=== PATIENT | female | born 1965 | race Caucasian/White ===

== ENCOUNTER 2017-06-09 17:53 | Inpatient (IN) | payer MEDICAID ==
--- NOTE | 2017-06-09 18:04 | EDPHY ---
H & P HPI/ROS: CHIEF COMPLAINT: Generalized weakness, confusion Limitations: confusion, unable to provide much clinical hx HISTORY OF PRESENT ILLNESS: 51-year-old female with schizophrenia and DM presents with confusion and weakness. She recently to moved in to [facility] on 06/02/2017 and was sent to the ED for suspected lithium toxicity. She had a lithium level performed on 06/01/2017 that was reportedly elevated. She was supposed to be on a decreased dose of lithium of 300 mg twice a day since 2016, but has continued to take 300 mg three times daily. Blain level today 1.9. The patient states she feels "pretty good" today. Has had a recent cough and shortness of breath. She has not eaten today because of lack of appetite. The patient's aunt at bedside states the patient's condition has been deteriorating over the past two months, and she has needed a walker to ambulate and has been sleeping much of the time. Recently, she has been unable to walk at all. She states the patient has lost about 25 pounds during the past 2 months. She also states the patient's confusion today is abnormal for her. Pt denies fever, headache, chest pain, or abdominal pain. HPI difficult to obtain due to patient's confusion. REVIEW OF SYSTEMS: A 10 point review of systems attempted, difficult to obtain due to patient's confusion. Past Medical/Surgical History: 1. Schizoaffective disorder 2. Bipolar disorder 3. Cognitive communication deficit 4. Diabetes Mellitus type II Social History: Aunt (patient's power of trial attorney) at bedside. Lives at [facility]. Retired. Physical Exam: General Appearance: Drowsy, confused Eyes: Pupils equal and round, no conjunctival pallor or injection ENT, Mouth: Mucous membranes dry Neck: Normal inspection Respiratory: Scattered rhonchi throughout Cardiovascular: Regular rate and rhythm Gastrointestinal: Abdomen is soft and non-tender Neurological: Drowsy, oriented to self only, CONNELLY, gait not assessed Skin: Warm and dry Extremities: Nontender, no pedal edema Psychiatric: flat affect Constitutional: Initial Vital Signs Temperature (C) 36.9 C 06/09/17 18:05 Heart Rate 92 06/09/17 18:05 Respiratory Rate 18 06/09/17 18:05 Blood Pressure 105/78 06/09/17 18:05 O2 Sat (%) 89 L 06/09/17 18:05 O2 Delivery Mode Room Air Allergies/Adverse Reactions: Penicillins Allergy (Mild, Verified 06/09/17 19:33) Rash Home Medications: Medication Instructions Recorded Acetaminophen [Tylenol ES 500 mg 500 - 1,000 mg PO Q6 PRN 06/09/17 (*)] Albuterol [Proventil Inhaler HFA 2 puffs IH Q4 PRN 06/09/17 (*)] Albuterol [Proventil Neb] 3 ml IH Q4 PRN 06/09/17 Aspirin [Aspirin 81mg (*)] 81 mg PO DAILY 06/09/17 Atorvastatin Calcium [Lipitor 10 10 mg PO DAILY 06/09/17 mg (*)] Ergocalciferol [Vitamin D2 (*)] 50,000 unit PO FR 06/09/17 Fluticasone/Salmeter 250/50Mcg 1 puffs IH BID 06/09/17 [Advair 250/50 (*)] Insulin Detemir [Levemir Flextouch] 40 unit SQ DAILY 06/09/17 Levothyroxine [Synthroid 100 mcg 100 mcg PO DAILY06 06/09/17 (*)] Linagliptin [Tradjenta] 5 mg PO DAILY 06/09/17 Petrolatum,White [Petrolatum,White 1 meenakshi TP BID 06/09/17 (*)] Pioglitazone HCl [Actos] 45 mg PO DAILY 06/09/17 Polyethylene Glycol 3350 [Miralax 17 gm PO DAILY 06/09/17 17 gm (*)] Spironolactone [Aldactone 25 MG 25 mg PO DAILY 06/09/17 (*)] cloZAPine [Clozaril (*)] 75 mg PO BID 06/09/17 cloZAPine [Clozaril (*)] 100 mg PO BID 06/09/17 Bl[place] Carbonate [Blain 300 mg PO BID #30 tab 06/11/17 Carbonate Tab 300 mg (*)] levOFLOXACIN [levAQUIN (*)] 750 mg PO DAILY #4 tab 06/11/17 Medical Decision Making - Diagnostics EKG Interpretation: EKG interpreted by me reveals sinus rhythm, rate 93. Diffuse T wave inversion, prolonged QT interval. Imaging Results: CXR: RLL infiltrate Imaging: I viewed and interpreted images myself ED Course/Re-evaluation: This patient presents with altered mental status, hypoxia, cough and dry mucous membranes. Concerning for pneumonia and dehydration. Oxygen applied and IV fluids 1 L normal saline given. Meets SIRS criteria, lactate normal. Chest x-ray reveals a right lower lobe infiltrate. Blood cultures drawn. PCN allergy is hives. Cefepime and Zithromax IV given. Blain level is slightly high, will hold lithium for now, continue IVF. No further rx for lithium toxicity indicated. 19:[address] Montoya, hospitalist. He accepts admission for pneumonia. Reassessment: after IVF, pt much more interactive and alert. CXR results and admission discussed with pt and her aunt, who has medical POA. Differential Diagnosis: Altered mental status including but not limited to hypoglycemia, infectious process, electrolyte abnormality, head injury and intoxicants. - Data Points Laboratory Results: Laboratory Results 06/09/17 18:00 12 18:00 Medications Given: Discontinued Medications Aspirin (Aspirin) 81 mg PO DAILY [facility] Stop: 12/07/17 08:59 Last Admin: 06/11/17 09:00 Dose: 81 mg Atorvastatin Calcium (Lipitor) 10 mg PO DAILY SARAH Stop: 12/07/17 08:59 Last Admin: 06/11/17 09:00 Dose: 10 mg Clozapine (Clozaril) 75 mg PO BID SARAH Stop: 12/06/17 20:59 Last Admin: 06/11/17 09:00 Dose: 75 mg Clozapine (Clozaril) 100 mg PO BID SARAH Stop: 12/06/17 20:59 Last Admin: 06/11/17 09:00 Dose: 100 mg Enoxaparin Sodium (Lovenox) 40 mg SC DAILY SARAH Stop: 12/07/17 08:59 Last Admin: 06/11/17 08:58 Dose: 40 mg Ergocalciferol (Vitamin D2) 50,000 i.unit PO FR SARAH Stop: 12/06/17 20:14 Last Admin: 06/09/17 22:13 Dose: Not Given Sodium Chloride (Ns) 1,000 mls @ 0 mls/hr IV EDNOW ONE; Wide Open PRN Reason: Protocol Stop: 06/09/17 18:06 Last Admin: 06/09/17 18:18 Dose: 1,000 mls Levofloxacin/Dextrose (Levaquin 750 Mg (Premix)) 150 mls @ 100 mls/hr IV EDNOW ONE PRN Reason: Protocol Stop: 06/09/17 20:34 Last Admin: 06/09/17 23:46 Dose: Not Given Azithromycin 500 mg/ Dextrose 255 mls @ 255 mls/hr IV EDNOW ONE PRN Reason: Protocol Stop: 06/09/17 20:07 Last Admin: 06/09/17 20:13 Dose: 255 mls Cefepime HCl 1 gm/ Dextrose 50 mls @ 100 mls/hr IV EDNOW ONE PRN Reason: Protocol Stop: 06/09/17 19:37 Last Admin: 06/09/17 19:59 Dose: 50 mls Azithromycin 500 mg/ Dextrose 255 mls @ 255 mls/hr IV DAILY SARAH PRN Reason: Protocol Stop: 07/10/17 08:59 Last Admin: 06/10/17 09:43 Dose: 255 mls Cefepime HCl 1 gm/ Dextrose 50 mls @ 100 mls/hr IV Q8H SARAH PRN Reason: Protocol Stop: 07/10/17 03:59 Last Admin: 06/10/17 04:52 Dose: 50 mls Sodium Chloride (1/2 Ns) 1,000 mls @ 100 mls/hr IV CONT SARAH Stop: 06/10/17 06:29 Last Admin: 06/09/17 21:37 Dose: 1,000 mls Levofloxacin/Dextrose (Levaquin 750 Mg (Premix)) 150 mls @ 100 mls/hr IV DAILY SARAH PRN Reason: Protocol Stop: 07/10/17 11:59 Last Admin: 06/11/17 08:59 Dose: 150 mls Insulin Glargine (Lantus Syringe) 40 units SC DAILY SARAH Stop: 12/07/17 08:59 Last Admin: 06/11/17 09:13 Dose: 40 units Insulin Human Lispro (Humalog Lispro) 0 unit SC TIDMEAL SARAH PRN Reason: Protocol Stop: 12/07/17 07:59 Last Admin: 06/11/17 12:34 Dose: 4 units Levothyroxine Sodium (Synthroid) 100 mcg PO DAILY06 SARAH Stop: 12/07/17 05:59 Last Admin: 06/11/17 06:22 Dose: Not Given Miscellaneous Medication (Linagliptin [Tradjenta]) 5 mg PO DAILY SARAH Stop: 12/07/17 08:59 Last Admin: 06/11/17 09:14 Dose: 5 mg Pioglitazone HCl (Actos) 45 mg PO DAILY SARAH Stop: 12/07/17 08:59 Last Admin: 06/11/17 09:14 Dose: 45 mg Polyethylene Glycol (Miralax) 17 gm PO DAILY SARAH Stop: 12/07/17 08:59 Last Admin: 06/11/17 09:00 Dose: 17 gm Fluticasone/Salmeterol (Advair) 1 puffs IH BID SARAH Stop: 12/06/17 20:59 Last Admin: 06/11/17 09:03 Dose: 1 puffs Departure - Departure Disposition: [facility] Inpatient Acute Clinical Impression: Pneumonia Qualifiers: Pneumonia type: due to unspecified organism Laterality: right Lung location: lower lobe of lung Qualified Code(s): J18.1 - Lobar pneumonia, unspecified organism Condition: Fair Report Scribed for: Sudha Gray Report Scribed by: Martah Heller Date of Report: 06/09/17 Time of Report: 18:03 Physician Review and Approval Statement: 06/09/17 18:03 Portions of this note were transcribed by a rn medical surgical. I personally performed a history, physical exam, medical decision making, and confirmed accuracy of information the transcribed note.
[2017-06-09] MEDS ORDERED: NS 1,000 ML IV ONE (18:05)
[2017-06-09 18:13] LABS: % IMMATURE GRANULYOCYTES 0.6 % (0.0-1.1); ABSOLUTE IMMATURE GRANULOCYTES 0.09 10^3/uL (0.00-0.10); ADD DIFF? NO; ADD MORPH? NO; ADD SCAN? NO; ATYPICAL LYMPHOCYTE FLAG 0 (0-99); FRAGMENT RBC FLAG 0 (0-99); HEMATOCRIT 54.8 % (38.0-47.0); HEMOGLOBIN 17.4 g/dL (12.6-16.3); LEFT SHIFT FLG 0 (0-99); LIPEMIA HEMOLYSIS FLAG 80 (0-99); MEAN CELL HEMOGLOBIN 31.6 pg (27.9-34.1); MEAN CELL HEMOGLOBIN CONCENTR. 31.8 g/dL (32.4-36.7); MEAN CELL VOLUME 99.6 fL (81.5-99.8); MEAN PLATELET VOLUME 10.3 fL (8.7-11.7); PLATELET CLUMPS FLAG 0 (0-99); PLATELET COUNT 338 10^3/uL (150-400); RED CELL DISTRIBUTION WIDTH 14.4 % (11.5-15.2)
[2017-06-09 18:27] LABS: ANION GAP 10 mEq/L (8-16); CALCIUM 11.2 mg/dL (8.5-10.4); CARBON DIOXIDE 28 mEq/l (22-31); CHLORIDE 106 mEq/L (97-110); CREATININE 1.1 mg/dL (0.6-1.0); GLOMERULAR FILTRATION RATE 52; GLUCOSE 317 mg/dL (70-100); LITHIUM 1.5 mEq/L (0.6-1.2); POTASSIUM 4.7 mEq/L (3.5-5.2); SODIUM 144 mEq/L (134-144)
--- NOTE | 2017-06-09 18:27 | CPEKG ---
Heart Rate: 93 RR Interval: 645 P-R Interval: 164 QRSD Interval: 90 QT Interval: 412 QTC Interval: 513 P [place]: 25 QRS [place]: 7 T Wave [place]: 198 EKG Severity - ABNORMAL ECG - EKG Impression: SINUS RHYTHM EKG Impression: PROBABLE LEFT ATRIAL ABNORMALITY EKG Impression: ABNORMAL T, CONSIDER ISCHEMIA, DIFFUSE LEADS EKG Impression: PROLONGED QT INTERVAL Electronically Signed By: Sudha Gray 09-Jun-2017 22:18:19
[2017-06-09] MEDS ORDERED: AZITHROMYCIN IV 500 MG in D5W 250 ML IV ONE (19:08)
[2017-06-09] MEDS ORDERED: CEFEPIME HCL 1 GM in D5W 50 ML IV ONE (19:08)
[2017-06-09] MEDS ORDERED: ALBUTEROL 200 PUFFS/18 GM MDI IH PRN (20:12)
[2017-06-09] MEDS ORDERED: ACETAMINOPHEN 500 MG TAB PO PRN (20:12)
[2017-06-09] MEDS ORDERED: ALBUTEROL 3 ML DEYVIAL IH PRN (20:12)
[2017-06-09] MEDS ORDERED: D50W 25 GM/50 ML VIAL IVP PRN (20:18)
[2017-06-09] MEDS ORDERED: ACETAMINOPHEN 325 MG TAB PO PRN (20:24)
[2017-06-09] MEDS ORDERED: ONDANSETRON DISINTEGRATING 4 MG TAB PO PRN (20:24)
[2017-06-09] MEDS ORDERED: ONDANSETRON 4 MG/2 ML VIAL IVP PRN (20:24)
[2017-06-09] MEDS ORDERED: 1/2 NS 1,000 ML IV SCH (20:30)
--- NOTE | 2017-06-09 21:06 | GHP ---
[f rep st] HISTORY AND PHYSICAL DATE OF ADMISSION: 06/09/2017 The patient is a 51-year-old female with a history of schizophrenia, bipolar, diabetes, and hypertens ion who presents from [facility] today with some confusion. She has had a brief cough. She has b een following her lithium levels. There is some concern she has been toxic. She has had a couple of falls lately. She has not hit her head. A lithium level yesterday was 1.9. Today it is a little b it lower. Apparently there had been a dose adjustment to go from 300 t.i.d. to 300 b.i.d., but she c ontinues to take 300 t.i.d. When I speak with the patient, her aunt and power of environmental attorney is present and provides most of the his tory stating that she has been having a difficult time walking with some falls but has not had cough, fever, chills. Does not have known heart problems, has not had heart failure symptoms. Does not waters ve urinary symptoms. The patient is alert and able to converse but really not offer meaningful quest ions. It sounds like lately she has been sleeping increasingly, often using a walker. She also had lost 25 pounds. It sounds like this has something to do with decreased access to food. She takes clozapine which is associated with weight gain. The patient has good access to food. REVIEW OF SYSTEMS: Complete 10-point review of systems conducted, negative except as noted in the HP I. PAST MEDICAL HISTORY: 1. Bipolar. 2. Schizophrenia. 3. Reactive airway disease. 4. Diabetes. 5. Hyperlipidemia. 6. Hypertension. 7. Hypothyroidism. ALLERGIES: Penicillin. HOME MEDICATIONS: lithium 300 t.i.d., Spironolactone, Tylenol, albuterol, aspirin, atorvastatin, mark anthony zapine, vitamin D2, Advair, Levemir 40, levothyroxine, linagliptin, pioglitazone, MiraLAX. SOCIAL HISTORY: No tobacco. No alcohol. Lives in [facility]. FAMILY HISTORY: Aunt is present at the bedside and healthy. OBJECTIVE: PRESENTING VITALS: Temp 36.9, blood pressure 105/78, pulse 92, breathing 18 times a sunitha te, 89% on room air. GENERAL: No acute distress. HEENT: Sclerae anicteric. Oropharynx clear. Mu cous membranes are moist. NECK. Supple without lymphadenopathy or JVD. LUNGS: Rhonchorous with cr ackles on the right. Clear on the left. HEART: S1, S2 without murmurs. ABDOMEN: Soft, nontender, nondistended. LOWER EXTREMITIES: Show trace edema bilaterally. Calves nontender. SKIN: Without rash. NEUROLOGIC: Nonfocal. LABORATORIES: White count is 15.5, hematocrit 54.8, platelets are 338,000. Sodium 144, potassium 4. 7, chloride 106, bicarb 28, BUN 20, creatinine 1.1, glucose 317. Toxicology: Level Green level is high at 1.5. Chest x-ray is poor inspiratory effort but likely right-sided infiltrate. EKG interpreted by me shows sinus at 93 with normal axis and intervals with T-wave inversions in I, I I, V3 through V6 as well as lead aVL. There is no prior for comparison. I discussed the case with Adalid Gray. ASSESSMENT AND PLAN: This is a 51-year-old female, presents with mental status changes and likely pn eumonia. 1. Suspected healthcare associated pneumonia. The patient lives in a SNF for the last week. She waters s crackles on the right side, leukocytosis, hypoxia, and weakness. Reasonable to treat this as a hos pital-acquired pneumonia. I will start her on cefepime and azithromycin. 2. EKG changes. I have no prior. This may be her baseline. She does not have any chest complaints although the history is somewhat limited. I have considered pulmonary embolism, and I figured given her leukocytosis and absence of tachycardia, we could follow. Will go ahead and cycle troponins. S he is not in heart failure. 3. Diabetes. Continue her Levemir and orals. Will add lispro sliding scale at a regular dose. 4. Level Green level. I will hold her lithium tonight. I will repeat a lithium level in the morning. She should probably wait for it to become normal before starting at 300 b.i.d. 5. Prophylaxis. Pharmacologic prophylaxis indicated. 6. Disposition. Inpatient. Will have PT and OT see her. It is not clear that her functional decli ne is not medically related or age and deconditioning in this obese patient with significant psychiat charles comorbidity. /[id number]/MODL
--- NOTE | 2017-06-09 21:39 | PDMN ---
Medical Necessity Medical necessity: C/M review: est. > 2 MN LOS for eval and TX of acute suspected healthcare associated pneumonia, EKG changes, weakness, functional decline, mental status changes, requiring ongoing IV Azithramycin, IV Cefepime , cardiac monitoring, pulse oximetry, supplemental O2, acute inpt PT/OT, comorbid diabetes, bipolar disorder, schizophrenia, reactive airway disease, hyperlipidemia, hypertension, hypothyroidism, patient has lived in a SNF for the last week per H/P.
[2017-06-09] MEDS: cloZAPine 100 MG TAB PO SCH ×2 (21:47→22:13)
[2017-06-09] MEDS: ERGOCALCIFEROL 50,000 I.UNIT CAP PO SCH ×2 (21:47→22:13)
[2017-06-09] MEDS: cloZAPine 25 MG TAB PO SCH (22:13)
[2017-06-10] MEDS: FLUTICASONE/SALMETER 250/50MCG DISKUS IH SCH ×3 (01:52→22:26)
[2017-06-10 03:57] LABS: % IMMATURE GRANULYOCYTES 0.4 % (0.0-1.1); ABSOLUTE IMMATURE GRANULOCYTES 0.05 10^3/uL (0.00-0.10); ADD DIFF? NO; ADD MORPH? NO; ADD SCAN? NO; ATYPICAL LYMPHOCYTE FLAG 0 (0-99); FRAGMENT RBC FLAG 0 (0-99); HEMOGLOBIN 14.8 g/dL (12.6-16.3); LEFT SHIFT FLG 0 (0-99); LIPEMIA HEMOLYSIS FLAG 80 (0-99); MEAN CELL HEMOGLOBIN 31.8 pg (27.9-34.1); MEAN CELL HEMOGLOBIN CONCENTR. 32.2 g/dL (32.4-36.7); MEAN CELL VOLUME 98.9 fL (81.5-99.8); MEAN PLATELET VOLUME 10.2 fL (8.7-11.7); PLATELET CLUMPS FLAG 0 (0-99); PLATELET COUNT 296 10^3/uL (150-400); RED BLOOD CELL COUNT 4.65 10^6/uL (4.18-5.33); RED CELL DISTRIBUTION WIDTH 14.4 % (11.5-15.2)
[2017-06-10] MEDS ORDERED: CEFEPIME HCL 1 GM in D5W 50 ML IV SCH (04:00)
[2017-06-10 04:03] LABS: ANION GAP 9 mEq/L (8-16); CALCIUM 10.1 mg/dL (8.5-10.4); CARBON DIOXIDE 24 mEq/l (22-31); CHLORIDE 114 mEq/L (97-110); CREATININE 0.9 mg/dL (0.6-1.0); GLOMERULAR FILTRATION RATE > 60; GLUCOSE 170 mg/dL (70-100); LITHIUM 1.5 mEq/L (0.6-1.2); SODIUM 147 mEq/L (134-144)
[2017-06-10] MEDS: LEVOTHYROXINE 100 MCG TAB PO SCH (05:27)
[2017-06-10 06:18] LABS: COLOR YELLOW; LEUKOCYTE ESTERASE,URINE TRACE (NEGATIVE); NITRITE,URINE NEGATIVE (NEGATIVE)
[2017-06-10 06:24] LABS: MUCUS TRACE /lpf (NONE-1+)
[2017-06-10] MEDS ORDERED: AZITHROMYCIN IV 500 MG in D5W 250 ML IV SCH (09:00)
[2017-06-10] MEDS: ENOXAPARIN 40 MG/0.4 ML SYR SC SCH (09:41)
[2017-06-10] MEDS: INSULIN GLARGINE 100 UNITS/ML SYRINGE SC SCH (09:42)
[2017-06-10] MEDS: PIOGLITAZONE HCL 15 MG TAB PO SCH (09:42)
[2017-06-10] MEDS: POLYETHYLENE GLYCOL 3350 17 GM PKT PO SCH (09:42)
[2017-06-10] MEDS: ATORVASTATIN CALCIUM 10 MG TAB PO SCH (09:42)
[2017-06-10] MEDS: ASPIRIN 81 MG CHEWABLE TAB PO SCH (09:43)
[2017-06-10] MEDS: cloZAPine 25 MG TAB PO SCH ×2 (10:15→20:58)
[2017-06-10] MEDS: cloZAPine 100 MG TAB PO SCH ×2 (10:16→20:59)
[2017-06-10] MEDS: INSULIN LISPRO 100 UNIT/ML SC SCH ×3 (10:16→17:09)
--- NOTE | 2017-06-10 11:26 | HOSPPROG ---
Hospitalist Progress Note Assessment/Plan: # R sided pna - improved today - change abx to levaquin - lives at [facility], risk foactor for resistant org's - recheck CXR in am # abn ECG - no priors - recheck ECG today - trop neg x 2, 3rd pending # DM2 - glucs slightly high - cont tradjenta, glargine and lispro # bipolar/schizophrenia - aunt POA - cont clozaril - hold Li one more day, will need to restart soon; check level tomorrow am # hyperNa - consider DI - monitor IO - consider holding Li longer - would need psychiatry - recheck tomorrow # obesity # lovenox Subjective: more conversant today Objective: Vital Signs Temp Pulse Resp BP Pulse Ox 36.6 C 88 20 120/71 92 06/10/17 08:00 06/10/17 08:00 06/10/17 08:00 06/10/17 08:00 06/10/17 08:00 Laboratory Results 06/10/17 03:40 06/10/17 03:40 06/09/17 06/10/17 06/11/17 05:59 05:59 05:59 Intake Total 1000 Output Total 800 Balance 200 chart reviewed CXR personally reviewed - Physical Exam Constitutional: no apparent distress, appears nourished Cardiovascular: regular rate and rhythym, no murmur, rub, or gallop, systolic murmur Respiratory: inspiratory crackles (R sided), No no rales or rhonchi, No clear to auscultation, No expiratory wheeze Gastrointestinal: normoactive bowel sounds, soft, non-tender abdomen, no palpable masses ICD10 Worksheet Patient Problems: Problems Problem Status Onset Pneumonia Acute
--- NOTE | 2017-06-10 12:14 | ASMTCMCOM ---
CM Note CM Note Notes: Pt lives at [facility], hx of schizophrenia and bipolar. Will return when medically stable. DC date unclear, CM w/f, aunt is MDPOA. DC Plan: Return to [facility] Date Signed: 06/10/2017 12:13 PM Electronically Signed By:Keerthi Del Rosario RN
[2017-06-11 05:25] LABS: % IMMATURE GRANULYOCYTES 0.6 % (0.0-1.1); ABSOLUTE IMMATURE GRANULOCYTES 0.06 10^3/uL (0.00-0.10); ADD DIFF? NO; ADD MORPH? NO; ADD SCAN? NO; ATYPICAL LYMPHOCYTE FLAG 0 (0-99); FRAGMENT RBC FLAG 0 (0-99); HEMATOCRIT 46.3 % (38.0-47.0); HEMOGLOBIN 14.6 g/dL (12.6-16.3); LEFT SHIFT FLG 0 (0-99); LIPEMIA HEMOLYSIS FLAG 80 (0-99); MEAN CELL HEMOGLOBIN 31.4 pg (27.9-34.1); MEAN CELL HEMOGLOBIN CONCENTR. 31.5 g/dL (32.4-36.7); MEAN CELL VOLUME 99.6 fL (81.5-99.8); MEAN PLATELET VOLUME 10.2 fL (8.7-11.7); PLATELET CLUMPS FLAG 0 (0-99); PLATELET COUNT 296 10^3/uL (150-400); RED BLOOD CELL COUNT 4.65 10^6/uL (4.18-5.33); RED CELL DISTRIBUTION WIDTH 14.4 % (11.5-15.2)
[2017-06-11 05:34] LABS: ANION GAP 11 mEq/L (8-16); CALCIUM 10.5 mg/dL (8.5-10.4); CARBON DIOXIDE 22 mEq/l (22-31); CHLORIDE 111 mEq/L (97-110); CREATININE 0.9 mg/dL (0.6-1.0); GLOMERULAR FILTRATION RATE > 60; GLUCOSE 144 mg/dL (70-100); LITHIUM 1.1 mEq/L (0.6-1.2); POTASSIUM 3.8 mEq/L (3.5-5.2); SODIUM 144 mEq/L (134-144)
[2017-06-11] MEDS: LEVOTHYROXINE 100 MCG TAB PO SCH (06:22)
[2017-06-11 08:38] VITALS: RESP 16; TEMP 98.3; O2SAT 94
[2017-06-11] MEDS: ENOXAPARIN 40 MG/0.4 ML SYR SC SCH (08:58)
[2017-06-11] MEDS: cloZAPine 25 MG TAB PO SCH (09:00)
[2017-06-11] MEDS: INSULIN LISPRO 100 UNIT/ML SC SCH ×2 (09:00→12:34)
[2017-06-11] MEDS: ASPIRIN 81 MG CHEWABLE TAB PO SCH (09:00)
[2017-06-11] MEDS: ATORVASTATIN CALCIUM 10 MG TAB PO SCH (09:00)
[2017-06-11] MEDS: POLYETHYLENE GLYCOL 3350 17 GM PKT PO SCH (09:00)
[2017-06-11] MEDS: cloZAPine 100 MG TAB PO SCH (09:00)
[2017-06-11] MEDS: FLUTICASONE/SALMETER 250/50MCG DISKUS IH SCH (09:03)
[2017-06-11] MEDS: INSULIN GLARGINE 100 UNITS/ML SYRINGE SC SCH (09:13)
[2017-06-11] MEDS: PIOGLITAZONE HCL 15 MG TAB PO SCH (09:14)
[2017-06-11 12:11] VITALS: BP 116/76; PULSE 85
--- NOTE | 2017-06-11 12:51 | PDIAF ---
- Diagnosis Diagnosis: Pneumonia Code Status: Full Code - Medication Management Discharge Medications: Medications to Continue on Transfer Acetaminophen [Tylenol ES 500 mg (*)] 500 - 1,000 mg PO Q6 PRN 06/09/17 [Last Taken Unknown] Albuterol [Proventil Inhaler HFA (*)] 2 puffs IH Q4 PRN 06/09/17 [Last Taken Unknown] Albuterol [Proventil Neb] 3 ml IH Q4 PRN 06/09/17 [Last Taken Unknown] Aspirin [Aspirin 81mg (*)] 81 mg PO DAILY 06/09/17 [Last Taken Unknown] Atorvastatin Calcium [Lipitor 10 mg (*)] 10 mg PO DAILY 06/09/17 [Last Taken Unknown] Ergocalciferol [Vitamin D2 (*)] 50,000 unit PO FR 06/09/17 [Last Taken Unknown] Fluticasone/Salmeter 250/50Mcg [Advair 250/50 (*)] 1 puffs IH BID 06/09/17 [ Last Taken Unknown] Insulin Detemir [Levemir Flextouch] 40 unit SQ DAILY 06/09/17 [Last Taken Unknown] Levothyroxine [Synthroid 100 mcg (*)] 100 mcg PO DAILY06 06/09/17 [Last Taken Unknown] Linagliptin [Tradjenta] 5 mg PO DAILY 06/09/17 [Last Taken Unknown] Petrolatum,White [Petrolatum,White (*)] 1 meenakshi TP BID 06/09/17 [Last Taken Unknown] Pioglitazone HCl [Actos] 45 mg PO DAILY 06/09/17 [Last Taken Unknown] Polyethylene Glycol 3350 [Miralax 17 gm (*)] 17 gm PO DAILY 06/09/17 [Last Taken Unknown] Spironolactone [Aldactone 25 MG (*)] 25 mg PO DAILY 06/09/17 [Last Taken Unknown ] cloZAPine [Clozaril (*)] 75 mg PO BID 06/09/17 [Last Taken Unknown] cloZAPine [Clozaril (*)] 100 mg PO BID 06/09/17 [Last Taken Unknown] [place] Carbonate [[place] Carbonate Tab 300 mg (*)] 300 mg PO BID #30 tab 06/11 [Last Taken Unknown] levOFLOXACIN [levAQUIN (*)] 750 mg PO DAILY #4 tab 06/11/17 [Last Taken Unknown] [place] Crusher Antibiotics: levaquin 750mg PO daily; dc after 4th dose Discharge Medications: Refer to the Discharge Home Medication list for PRN reason. - Orders Services needed: Registered Nurse, Certified Game And Fish Protector, Physical Therapy, Occupational Therapy Diet Recommendation: no restrictions on diet Weigh Patient: weekly - Labs/Radiology BMP Date: 06/14/17 Other Lab Name, Date and Time: [place] level, 06/14/17 then per psychiatry - Follow Up Care Current Providers and Referrals: Patient,NotPresent [Unknown] - As per Instructions
--- NOTE | 2017-06-11 13:43 | GDS ---
[f rep st] DISCHARGE SUMMARY ALL DIAGNOSES: 1. Pneumonia. 2. Abnormal electrocardiogram. 3. Diabetes mellitus type 2. 4. Bipolar and schizophrenia with question of lithium toxicity. 5. Hypernatremia, consider diabetes insipidus, resolved. 6. Obesity. HOSPITAL COURSE: This is a 51-year-old female, who was brought from [facility] to the hospital wi th confusion. I have spoken with her aunt, who is concerned that this is related to lithium toxicity ; however, given her leukocytosis, likely infiltrates on chest x-ray, I feel that this is also potent ially due to pneumonia. 1. Pneumonia: Initial white count was 15.6. She was initially treated for healthcare-associated pn eumonia; however, she was changed to Levaquin on day 2 of her hospitalization. Her white count has n early resolved. It is 9.75 on the day of discharge. She is not requiring any supplemental oxygen. She feels much better overall, back at her baseline mental status. We will give her an additional 4 days of Levaquin to complete a 7-day course of antibiotics. 2. Psychiatric issues, including schizophrenia and bipolar: Her aunt is concerned that lithium toxi city was the cause of her confusion. Her initial lithium level was 1.5. There had been outpatient p lans to change her lithium from 300 t.i.d. to 300 b.i.d. [place] on the day of discharge is 1.1. I recommend that she restart lithium at 300 b.i.d. She will also continue on her Clozaril at 175 b.i.d ., which was her previous dose. She has had 1 episode of hypernatremia. She has not been significan tly polyuric here, however, would consider diabetes insipidus, moving forward. I have written to rec heck both her lithium level as well as her basic metabolic panel on the of this month at [facility]. We will defer to Dr. Hayes as well as Sagar Bello on ongoing management of her psychiatri c medications. She should follow up soon with them. 3. Weight loss: Her aunt reports that she has had a 25-pound weight loss recently. I have written to check daily weights at [facility]. Her aunt is concerned that her dentures may be preventing h er from eating. I recommend that this be evaluated as an outpatient. Would also ensure that she is up to date on her routine cancer screening. BILLING: I spent more than 30 minutes on the day of discharge coordinating care. Copy requested to: Dr. Chun Bello [phone] /[id number]/MODL
--- NOTE | 2017-06-11 14:50 | ASDISCHSUM ---
Discharge Information Plan Status:SNF Medically Cleared to Leave:06/10/2017 Discharge Date:06/10/2017 CM D/C Disposition:Nursing Home Facility ADT D/C Disposition:Nursing Home Facility Projected Discharge Date:06/11/2017 11:00 AM Transportation at D/C:Wheelchair Van Discharge Delay Reason: Follow-Up Date:06/11/2017 11:00 AM Discharge Slot:2 - 12:01 pm - 18:00 pm Final Diagnosis:Pneumonia, abnormal EKG, DM type 2, bipolar, schizophrenia w/ questionable lithium t oxicity, hypernatremia, obesity Placement Information Referral Type:*Jail/SNF Referral ID:[id number] Provider Name:Wm Parra/Vupen Address 1:[address] Phone Number: Address 2: Fax Number: Daniel:Wm Selection Factors:Returning to Facility State:[place] Patient Contact Information Contact Name:NYDIA Relationship: Address: Home Phone: Work Phone: City: [facility] Phone: [facility]/Zip Code: Email: Financial Information Financial Class:MD Primary Plan Desc:[employer] FIRST CAMPAIGN DIRECTOR Primary Plan Number:[id number] Secondary Plan Desc: Secondary Plan Number: Assessment Information [facility] CM Progress Note CM Note CM Note Notes: Pt lives at [facility], hx of schizophrenia and bipolar. Will return when medically stable. DC date unclear, CM w/f, aunt is MDPOA. DC Plan: Return to Date Signed: 06/10/2017 12:13 PM Electronically Signed By:Keerthi Del Rosario RN Case Management Discharge Plan Note Case Management Discharge Discharge Order Complete? Answers: Yes Patient to Obtain Answers: Other Notes: via [facility] [place] Medications Transportation Arranged Answers: Other Notes: Wheelchair van, to be paid for and arranged b y [facility] Transport will Pick (Date 06/11/2017 03:15 PM & Time) EMTALA Complete Answers: No Notes: N/A Case Management Transport Answers: Yes Form Complete Faxed Final Orders Answers: Yes Notes: Confirmed receipt w[facility] [place] Agency/Facility Transfer Answers: Yes Notes: Confirmed receipt Report Printed & Faxed to w/ [facility] Family Notified Answers: Yes Notes: Dr. Reyez alerted pt' s aunt (MDPOA) Discharge Comments Notes: Reviewed chart, spoke w/ Dr. Reyez and Adriana, RN regarding discharge plan, pt's progress. Per Dr. Reyez, pt ready to discharge back to [facility]. Call placed to Preethi at [facility]. Per Preethi, able to accept pt today. Transportation to be paid for and arranged by [facility]. Discharge orders and paperwork manually faxed to per [facility]'s request (no one at the facility able to access [employer]); confirmed receipt. RYLAN Wright called report to facility . Pt to follow up as directed. No IM signed, not applicable. Facesheet provided to form setter/driver. CM avail for any further issues or concerns. Date Signed: 06/11/2017 02:42 PM Electronically Signed By:Maria G Baca RN Intervention Information
--- NOTE | 2017-06-11 15:00 | PDIAF ---
- Diagnosis Diagnosis: Pneumonia Code Status: Full Code - Medication Management Discharge Medications: Medications to Continue on Transfer Acetaminophen [Tylenol ES 500 mg (*)] 500 - 1,000 mg PO Q6 PRN 06/09/17 [Last Taken Unknown] Albuterol [Proventil Inhaler HFA (*)] 2 puffs IH Q4 PRN 06/09/17 [Last Taken Unknown] Albuterol [Proventil Neb] 3 ml IH Q4 PRN 06/09/17 [Last Taken Unknown] Aspirin [Aspirin 81mg (*)] 81 mg PO DAILY 06/09/17 [Last Taken Unknown] Atorvastatin Calcium [Lipitor 10 mg (*)] 10 mg PO DAILY 06/09/17 [Last Taken Unknown] Ergocalciferol [Vitamin D2 (*)] 50,000 unit PO FR 06/09/17 [Last Taken Unknown] Fluticasone/Salmeter 250/50Mcg [Advair 250/50 (*)] 1 puffs IH BID 06/09/17 [ Last Taken Unknown] Insulin Detemir [Levemir Flextouch] 40 unit SQ DAILY 06/09/17 [Last Taken Unknown] Levothyroxine [Synthroid 100 mcg (*)] 100 mcg PO DAILY06 06/09/17 [Last Taken Unknown] Linagliptin [Tradjenta] 5 mg PO DAILY 06/09/17 [Last Taken Unknown] Petrolatum,White [Petrolatum,White (*)] 1 [place] TP BID 06/09/17 [Last Taken Unknown] Pioglitazone HCl [Actos] 45 mg PO DAILY 06/09/17 [Last Taken Unknown] Polyethylene Glycol 3350 [Miralax 17 gm (*)] 17 gm PO DAILY 06/09/17 [Last Taken Unknown] Spironolactone [Aldactone 25 MG (*)] 25 mg PO DAILY 06/09/17 [Last Taken Unknown ] cloZAPine [Clozaril (*)] 75 mg PO BID 06/09/17 [Last Taken Unknown] cloZAPine [Clozaril (*)] 100 mg PO BID 06/09/17 [Last Taken Unknown] [place] Carbonate [[place] Carbonate Tab 300 mg (*)] 300 mg PO BID #30 tab 06/11 [Last Taken Unknown] levOFLOXACIN [levAQUIN (*)] 750 mg PO DAILY #4 tab 06/11/17 [Last Taken Unknown] Sales Applications Engineer Antibiotics: levaquin 750mg PO daily; dc after 4th dose Discharge Medications: Refer to the Discharge Home Medication list for PRN reason. - Orders Services needed: Registered Nurse, Certified Sales Officer, Physical Therapy, Occupational Therapy Diet Recommendation: no restrictions on diet Weigh Patient: weekly Wound Care Instructions: cover small abdomen wound with silvasorb gel and allevyn, change QOD - Labs/Radiology BMP Date: 06/14/17 Other Lab Name, Date and Time: [place] level, 06/14/17 then per psychiatry - Follow Up Care Current Providers and Referrals: Patient,NotPresent [Unknown] - As per Instructions
== END 2017-06-11 15:10 | DRG 194 ==
LOC: F3E 20:40
PROVIDERS: ADMIT Internal Medicine; ATTEND Internal Medicine
DX: J18.9 Pneumonia, unspecified organism (principal); F20.9 Schizophrenia, unspecified; F31.9 Bipolar disorder, unspecified; E87.0 Hyperosmolality and hypernatremia; E66.9 Obesity, unspecified; E11.9 Type 2 diabetes mellitus without complications; I10 Essential (primary) hypertension; J45.909 Unspecified asthma, uncomplicated; E78.5 Hyperlipidemia, unspecified; E03.9 Hypothyroidism, unspecified; R94.31 Abnormal electrocardiogram [ECG] [EKG]
CPT/HCPCS: 97116-GP; 97162-GP; 97165-GO; 97535-GO; J0456; J0692; J1650; J1815; J1956

== ENCOUNTER 2017-07-02 14:59 | Inpatient (IN) | payer MEDICAID ==
--- NOTE | 2017-07-02 15:08 | EDPHY ---
H & P - Medical/Surgical History Hx Diabetes: Yes Hx Cardiac Disease: No Hx Renal Disease: No Hx Cirrhosis: No Hx Alcoholism: No Hx HIV/AIDS: No Other PMH: PMHx: schizoaffective disorder, bipolar disorder, cognitive communication deficit, DMII - Social History Smoking Status: Former smoker <Sudha Gray - Last Filed: 07/02/17 15:18> <Sosa Emery Lary - Last Filed: 07/02/17 15:19> Allergies/Adverse Reactions: Penicillins Allergy (Mild, Verified 06/09/17 19:33) Rash Home Medications: Medication Instructions Recorded Acetaminophen [Tylenol ES 500 mg 500 - 1,000 mg PO Q6 PRN 06/09/17 (*)] Albuterol [Proventil Inhaler HFA 2 puffs IH Q4 PRN 06/09/17 (*)] Albuterol [Proventil Neb] 3 ml IH Q4 PRN 06/09/17 Aspirin [Aspirin 81mg (*)] 81 mg PO DAILY 06/09/17 Atorvastatin Calcium [Lipitor 10 10 mg PO DAILY 06/09/17 mg (*)] Ergocalciferol [Vitamin D2 (*)] 50,000 unit PO FR 06/09/17 Fluticasone/Salmeter 250/50Mcg 1 puffs IH BID 06/09/17 [Advair 250/50 (*)] Insulin Detemir [Levemir Flextouch] 40 unit SQ DAILY 06/09/17 Levothyroxine [Synthroid 100 mcg 100 mcg PO DAILY06 06/09/17 (*)] Linagliptin [Tradjenta] 5 mg PO DAILY 06/09/17 Petrolatum,White [Petrolatum,White 1 meenakshi TP BID 06/09/17 (*)] Pioglitazone HCl [Actos] 45 mg PO DAILY 06/09/17 Polyethylene Glycol 3350 [Miralax 17 gm PO DAILY 06/09/17 17 gm (*)] Spironolactone [Aldactone 25 MG 25 mg PO DAILY 06/09/17 (*)] cloZAPine [Clozaril (*)] 75 mg PO BID 06/09/17 cloZAPine [Clozaril (*)] 100 mg PO BID 06/09/17 [place] Carbonate [[place] 300 mg PO BID #30 tab 06/11/17 Carbonate Tab 300 mg (*)] levOFLOXACIN [levAQUIN (*)] 750 mg PO DAILY #4 tab 06/11/17 Medical Decision Making <Sudha Gray - Last Filed: 07/02/17 15:18> <Sosa Emery - Last Filed: 07/02/17 15:19> ED Course/Re-evaluation: 15:00 Met EMS at bedside. Arriving emergently via EMS Per EMS report: Normal mentation decreased per staff. Not ambulatory . Responds to name with "what". Slightly less responsive now than normal, increased lethargy. BGL 534. Hyperglycemia. Staff called due to high BGL. Unable to palpate good radial pulse or obtain good blood pressure. GCS 9. Patient is diabetic. Medications; [place], insulin, thyriod. Medication list does not report any narcotic prescriptions. Breathing, pulse. Plan for intubation as the patient is not protecting her airway. Dry mucous membranes. breath sounds diminished tachycardic [place] 1513: O2Sats 74 1514: Intubation Procedure: Rapid sequence intubation. Indication for the procedure was airway protection. The patient was preoxygenated with 100% oxygen by face mask. The patient was given the following IV medications: [Etomidate,][fentanyl,] [lidocaine,] [rocuronium as a defasciculating agent] [] [succinylcholine,] [rocuronium]. The patient was orally endotracheally intubated [under direct visualization] with a [8.0] ETT. [ In line stabilization was performed during the procedure.] Tracheal intubation was confirmed with misting on the tube; breath sounds were auscultated equally bilaterally; [appropriate color change with [place] CO2 detector.] Chest X-ray shows ETT [in good position]. The procedure was performed by myself , Dr. Emery 7.5tube 1514:Sodium bitomidate? (Sosa Emery) - Data Points Laboratory Results: 07/02/17 14:58 POC Hgb 9.5 gm/dL L gm/dL (12.6-16.3) POC Hct 28 % L % (38-47) POC Sodium 135 mEq/L mEq/L (134-144) POC Potassium 5.4 mEq/L H mEq/L (3.3-5.0) POC Chloride 101 mEq/L mEq/L (97-110) POC BUN 117 mg/dL H* mg/dL (7-23) POC Creatinine 3.9 mg/dL H mg/dL (0.6-1.0) POC Glucose 459 mg/dL H mg/dL (70-100) Point of Care Test Results: 07/02/17 14:58 POC Sodium 135 POC Potassium 5.4 H POC Chloride 101 POC BUN 117 H* POC Creatinine 3.9 H POC Glucose 459 H Departure <Sudha Gray - Last Filed: 07/02/17 15:18> <Sosa Emery - Last Filed: 07/02/17 15:19> - Departure Referrals: Patient,NotPresent [Primary Care Provider] - As per Instructions Report Scribed for: Sosa Emery Report Scribed by: Kathy Ellis Date of Report: 07/02/17 Time of Report: 15:12 <Sosa Emery - Last Filed: 07/02/17 15:19>
[2017-07-02] MEDS ORDERED: NS 1,000 ML IV ONE ×4 (15:19→16:18)
[2017-07-02] MEDS ORDERED: INSULIN REGULAR HUMAN 100 UNIT/ML IVP ONE (15:19)
[2017-07-02] MEDS ORDERED: PROPOFOL/EMULSION 1,000 MG/100 ML BOTTLE IV ONE (15:28)
--- NOTE | 2017-07-02 15:31 | EDPHY ---
H & P Stated Complaint: AMS HPI/ROS: CHIEF COMPLAINT: Altered mental status HISTORY OF PRESENT ILLNESS: The patient is a 51 y/o female with a history of Type II Diabetes on insulin, bipolar, schizoaffective disorder arriving via EMS from [facility] for altered mental status and increased lethargy. She was recently discharged from this hospital for pneumonia on 06/11/17, 21 days ago. Per [facility] staff, her typical mentation is responding to her name by saying "what"; she is not ambulatory. [facility] states the patient has had 3 falls recently, her most recent fall resulted in her falling on her face and having a bloody nose. They also state she is currently on her menstrual period. Upon EMS arrival the patient's BGL was 534; they were unable to obtain a blood pressure. Medication list does not report any narcotic prescriptions. She is not on anticoagulation. Past medical history: Type II diabetes Schizoaffective disorder Bipolar disorder Cognitive communication deficit Obesity Past surgical history: Denies Social History: Lives at [facility] Family summoned to bedside (POA and parents, siblings) Single Prior medical records reviewed including discharge summary on 06/11/[address] Reyez. REVIEW OF SYSTEMS: Unable to obtain review of systems due to patient's condition. General Appearance: Obese. Blood pressure 109/49, respiratory rate 10, oxygen saturation initially difficult to obtain but 65% with reasonable waveform. Eyes: Pupils equal and round, no conjunctival injection, no discharge. ENT, Mouth: Mucous membranes are extremely dry, no oropharyngeal erythema or edema. Neck: No lymphadenopathy, supple. Trachea midline. Respiratory: Diminished breath sounds. Lungs are clear to auscultation; no wheezes, rales, or rhonchi. Cardiovascular: Regular rate and rhythm; no murmur, rub, or gallop. Gastrointestinal: Abdomen is soft and non tender, no masses or organomegaly, bowel sounds normal. Rectal: Melena present. Skin: Warm and dry, no rashes, normal color. Back: No obvious trauma on evaluation of the back. Extremities: No lower extremity edema, no calf tenderness or swelling. Neurological: GCS 9 (spontaneous eye opening, no verbal response, minimal withdrawal to painful stimuli). Pupils pinpoint. Gaze conjugate and not roving. No obvious facial weakness. No gag reflex. Pulses: 2+ femoral pulses, 1+ bilateral dorsalis pedis pulses on arrival. - Personal History Current Tetanus/Diphtheria Vaccine: Unsure - Medical/Surgical History Hx Diabetes: Yes Hx Cardiac Disease: No Hx Renal Disease: No Hx Cirrhosis: No Hx Alcoholism: No Hx HIV/AIDS: No Other PMH: PMHx: schizoaffective disorder, bipolar disorder, cognitive communication deficit, DMII - Social History Smoking Status: Former smoker Constitutional: Initial Vital Signs Temperature (C) 36.6 C 07/02/17 15:07 Heart Rate 95 07/02/17 15:07 Respiratory Rate 10 L 07/02/17 15:07 Blood Pressure 109/49 L 07/02/17 15:07 O2 Sat (%) 65 L 07/02/17 15:07 O2 Delivery Mode Room Air Allergies/Adverse Reactions: Penicillins Allergy (Mild, Verified 06/09/17 19:33) Rash Home Medications: Medication Instructions Recorded Albuterol [Proventil Inhaler HFA 2 puffs IH Q4 PRN 06/09/17 (*)] Albuterol [Proventil Neb] 3 ml IH Q4 PRN 06/09/17 Aspirin [Aspirin 81mg (*)] 81 mg PO DAILY 06/09/17 Atorvastatin Calcium [Lipitor 10 10 mg PO HS 06/09/17 mg (*)] Fluticasone/Salmeter 250/50Mcg 1 puffs IH BID 06/09/17 [Advair 250/50 (*)] Insulin Detemir [Levemir Flextouch] 40 unit SQ DAILY 06/09/17 Linagliptin [Tradjenta] 5 mg PO DAILY 06/09/17 Pioglitazone HCl [Actos] 45 mg PO DAILY 06/09/17 Polyethylene Glycol 3350 [Miralax 17 gm PO DAILY 06/09/17 17 gm (*)] Spironolactone [Aldactone 25 MG 25 mg PO DAILY 06/09/17 (*)] cloZAPine [Clozaril (*)] 75 mg PO BID 06/09/17 cloZAPine [Clozaril (*)] 100 mg PO BID 06/09/17 [place] Carbonate [[place] 300 mg PO BID #30 tab 06/11/17 Carbonate Tab 300 mg (*)] Acetaminophen [Tylenol 325mg (*)] 325 - 650 mg PO Q6HRS PRN 07/02/17 Levothyroxine [Synthroid 112 mcg 112 mcg PO DAILY06 07/02/17 (*)] Medical Decision Making - Diagnostics Imaging: I viewed and interpreted images myself ED Course/Re-evaluation: The patient is a 51 y/o female with a history of diabetes, bipolar, and schizoaffective disorder arriving emergently from [facility] via EMS for altered mental status. Per EMS she is slightly less responsive now compared to normal. Her BGL was 534 when EMS arrived. Upon arrival in ED she had shallow breathing with diminished breath sounds. Although I was told that she was menstruating, on exam she has approximately 3 cups of melanotic stool in her diaper. GCS 9. Plan for intubation as the patient is not protecting her airway. DKA protocol will be followed. 1500: Met EMS at bedside. 1505: Hemoglobin: 9.3, hematocrit: 28.6 Per I-STAT. Patient will be typed and screened. 1513: O2Sats: 74 1514: Intubation Procedure: Rapid sequence intubation. Indication for the procedure was airway protection. The patient was preoxygenated with 100% oxygen by face mask. The patient was given the following IV medications: 30 mg of etomidate IV and 100 mg of succinylcholine IV. The patient was orally endotracheally intubated under direct visualization with a 7.5 ETT. . Tracheal intubation was confirmed with misting on the tube; breath sounds were auscultated equally bilaterally; appropriate color change with [place] CO2 detector. Chest X-ray shows ETT in good position above the ike. The procedure was performed by myself, Dr. Emery 1519: IO placed 1520: 1L IV NS and 10 units Humulin administered 1521: BP: 60/27 1527: 1L IV NS administered, pressure bags placed due to hypotension. 1530: 80mg Protonix drip administered 1532: Consulted with hospitalist service, Dr. Jean Baptiste accepts admission of this patient. 1536: Consulted with Dr. Meek, billet examiner, on the telephone. 1540: Iglesias catheter collected 5cc's of fluid. 1541: The 12 lead EKG was interpreted by myself as sinus rhythm with a rate of 95 and borderline prolonged QT interval. See hard copy and/or "tracemaster" electronic copy for interpretation. 1543: 1L IV NS administered, this is her 3rd liter of fluid. 1548: BP: 73/46 1557: 50mcg IV Octreotide administered 1604: BP: 99/44 1609: Hemoglobin 5.4, Hematocrit 15 per i-STAT. She has about 700mL of blood in her NG tube. 2 Units of typed and cross screened blood has been ordered but is not yet available; 2 units of O negative blood ordered. 1613: Consulted with Dr. Meek, regarding the current status of this patient. 250 mg erythromycin ordered per Dr. Meek. 1619: 1L IV NS administered 1627: BP: 57/42 1628: INR: 1.3 1634: Consulted with Dr. Meek and discussed INR results. Endoscopy planned. 1644: 3rd and 4th units of O negative blood administered. 1645: Procedure: Ultrasound guidance for central line placement. Using the linear probe covered in a sterile sheath, a short axis of the vein was obtained. The vein was completely compressible and was identified as separate from the adjacent non-compressible arterial structure. Under real-time guidance, the introducer needle was observed up to the vein, and then punctured it. Indication: Poor vascular access. Risks, benefits, alternatives discussed with the patient including but not limited to bleeding, infection, vascular injury, and collapsed lung and consent obtained. A timeout was observed. Full maximal sterile barrier technique was used including cap, gown, sterile gloves, large sheet, hand washing and chlorhexidine prep. A 7 [place] triple lumen was placed in the right internal jugular vein using standard Seldinger technique. There were no complications. Blood return low pressure, bright red blood. Patient tolerated procedure well. CXR results: Appropriate line placement, and no pneumothorax. Xray was interpreted by myself. Radiologist interpretation is pending. The procedure was performed by myself, Dr. Emery. Chest x-ray post procedure shows the line in the right atrium. It was withdrawn by me approximately 5 cm. 1652: BP: 110/70 1705: 100mcg IV Fentanyl and 40mg IV Propofol administered--patient slightly agitated. 1730: Spoke with patient's family regarding plan for admission. They are comfortable with this plan. They have requested that if the patient's heart stops, she does not receive compressions or cardioversion. Critical care time spent by me, Dr. Emery, exclusively with this patient was 45 minutes, exclusive of PA time and exclusive of procedures. The organ system at risk was GI and endocrine. I gave IVF,blood, octreotide, Protonix, erythromycin, and insulin to prevent worsening of the patients condition. Differential Diagnosis: Altered mental status including but not limited to hypoglycemia, hyperglycemia, volume depletion, infectious process, electrolyte abnormality, head injury and intoxicants. - Data Points Laboratory Results: Laboratory Results 07/02/17 15:05 07/02/17 15:05 Medications Given: Pantoprazole Sodium 80 mg/ (Sodium Chloride) 100 mls @ 10 mls/hr IV Q10H SARAH Stop: 12/29/17 18:59 Last Admin: 07/03/17 10:24 Dose: 100 mls Levofloxacin/Dextrose (Levaquin 750 Mg (Premix)) 150 mls @ 100 mls/hr IV Q48H SARAH PRN Reason: Protocol Stop: 08/01/17 17:59 Last Admin: 07/02/17 19:25 Dose: 150 mls Propofol (Diprivan 10 Mg/Ml (Premix)) 100 mls @ 0 mls/hr IV CONT SARAH; Titrate PRN Reason: Protocol Stop: 12/29/17 17:59 Last Admin: 07/02/17 17:37 Dose: 100 mls Dextrose (D5w) 1,000 mls @ 0 mls/hr IV AD SARAH; Per Protocol PRN Reason: Protocol Stop: 12/29/17 19:35 Last Admin: 07/03/17 08:10 Dose: 1,000 mls Sodium Chloride (Ns) 1,000 mls @ 200 mls/hr IV CONT SARAH Stop: 12/30/17 09:44 Last Admin: 07/03/17 10:19 Dose: 1,000 mls Insulin Glargine (Lantus Syringe) 40 units SC DAILY SARAH Stop: 12/30/17 09:29 Last Admin: 07/03/17 10:11 Dose: 40 units Discontinued Medications Etomidate (Etomidate) 30 mg IVP ONCE ONE Stop: 07/02/17 15:58 Last Admin: 07/02/17 15:15 Dose: 30 mg Fentanyl (Sublimaze) 100 mcg IVP EDNOW ONE Stop: 07/02/17 16:47 Last Admin: 07/02/17 16:10 Dose: 100 mcg Fentanyl (Sublimaze) 100 mcg IVP EDNOW ONE Stop: 07/02/17 16:59 Last Admin: 07/02/17 17:04 Dose: 100 mcg Sodium Chloride (Ns) 1,000 mls @ 0 mls/hr IV ONCE ONE; Wide Open PRN Reason: Protocol Stop: 07/02/17 15:20 Last Admin: 07/02/17 15:25 Dose: 1,000 mls Sodium Chloride (Ns) 1,000 mls @ 0 mls/hr IV ONCE ONE PRN Reason: Wide Open Stop: 07/02/17 15:27 Last Admin: 07/02/17 15:27 Dose: 1,000 mls Pantoprazole Sodium 80 mg/ (Sodium Chloride) 100 mls @ 10 mls/hr IV Q10H ONE Stop: 07/03/17 01:31 Last Admin: 07/03/17 03:34 Dose: Not Given Sodium Chloride (Ns) 1,000 mls @ 0 mls/hr IV ONCE ONE PRN Reason: Wide [place] Stop: 07/02/17 15:44 Last Admin: 07/02/17 15:55 Dose: 1,000 mls Pantoprazole Sodium 80 mg/ (Sodium Chloride) 100 mls @ 10 mls/hr IV EDNOW ONE Stop: 07/03/17 01:59 Last Admin: 07/02/17 15:56 Dose: 100 mls Insulin Human Regular 100 unit / Miscellaneous Medication 1 ea/ Sodium Chloride 101 mls @ 6 mls/hr IV EDNOW ONE PRN Reason: Protocol Stop: 07/03/17 08:51 Last Admin: 07/02/17 17:40 Dose: 101 mls Sodium Chloride (Ns) 1,000 mls @ 0 mls/hr IV ONCE ONE PRN Reason: Wide Open Stop: 07/02/17 16:19 Last Admin: 07/02/17 16:31 Dose: 1,000 mls Erythromycin Lactobionate 250 (mg/ Sodium Chloride) 105 mls @ 105 mls/hr IV EDNOW ONE PRN Reason: Protocol Stop: 07/02/17 18:59 Last Admin: 07/02/17 19:19 Dose: Not Given Insulin Human Regular 100 unit (/ Sodium Chloride) 101 mls @ 0 mls/hr IV AD ASRAH ; Per Protocol PRN Reason: Protocol Stop: 12/29/17 19:35 Last Admin: 07/03/17 08:11 Dose: 101 mls Vancomycin HCl 1 gm/ Dextrose 250 mls @ 250 mls/hr IV ONCE ONE Stop: 07/02/17 21:29 Last Admin: 07/02/17 22:30 Dose: 250 mls Albumin Human (Flexbumin 25 % (Premix)) 100 mls @ 0 mls/hr IV ONCE ONE PRN Reason: As Directed Stop: 07/03/17 01:02 Last Admin: 07/03/17 01:30 Dose: 100 mls Sodium Chloride (Ns) 1,000 mls @ 0 mls/hr IV ONCE ONE PRN Reason: Wide Open Stop: 07/03/17 01:02 Last Admin: 07/03/17 02:30 Dose: 1,000 mls Potassium Chloride (Potassium Cl 10 Meq (Premix)) 50 mls @ 100 mls/hr IV Q30M [facility] Stop: 07/03/17 09:29 Last Admin: 07/03/17 08:12 Dose: Not Given Potassium Chloride (Potassium Cl 20 Meq (Premix)) 50 mls @ 25 mls/hr IV ONCE ONE Stop: 07/03/17 10:14 Last Admin: 07/03/17 08:07 Dose: 50 mls Potassium Chloride 10 meq/ (Sodium Chloride) 50 mls @ 50 mls/hr IV Q1H [facility] Stop: 07/03/17 10:29 Last Admin: 07/03/17 09:12 Dose: 50 mls Sodium Chloride (Ns) 500 mls @ 1,500 mls/hr IV ONCE ONE Stop: 07/03/17 09:52 Last Admin: 07/03/17 09:00 Dose: 500 mls Insulin Human Regular (Humulin R) 10 unit IVP EDNOW ONE Stop: 07/02/17 15:20 Last Admin: 07/02/17 15:54 Dose: 10 units Octreotide Acetate (Octreotide Acetate) 50 mcg IVP ONCE ONE Stop: 07/02/17 15:36 Last Admin: 07/02/17 15:55 Dose: 50 mcg Propofol (Diprivan) 40 mg IVP EDNOW ONE Stop: 07/02/17 17:06 Last Admin: 07/02/17 17:06 Dose: 40 mg Departure - Departure Disposition: [facility] Acute Clinical Impression: Upper GI bleed, Hyperglycemia Altered mental status Qualifiers: Altered mental status type: unspecified Qualified Code(s): R41.82 - Altered mental status, unspecified Condition: Critical Report Scribed for: Sosa Emery Report Scribed by: Kathy Ellis Date of Report: 07/02/17 Time of Report: 15:28 Physician Review and Approval Statement: 07/02/17 16:04 Portions of this note were transcribed by the medial scribe. I, Dr. Sosa Emery, personally performed the history, physical exam, and medical decision- making; and confirmed the accuracy of the information in the transcribed note.
[2017-07-02] MEDS ORDERED: PANTOPRAZOLE SODIUM 80 MG in NS 100 ML IV ONE ×2 (15:32→16:00)
[2017-07-02] MEDS ORDERED: OCTREOTIDE ACETATE 50 MCG/ML INJ IVP ONE (15:35)
--- NOTE | 2017-07-02 15:42 | CPEKG ---
Heart Rate: 95 RR Interval: 632 P-R Interval: 168 QRSD Interval: 80 QT Interval: 392 QTC Interval: 493 P [place]: 38 QRS [place]: 51 T Wave [place]: 73 EKG Severity - BORDERLINE ECG - EKG Impression: SINUS RHYTHM EKG Impression: BORDERLINE PROLONGED QT INTERVAL Electronically Signed By: Sosa Emery 02-Jul-2017 18:22:31
[2017-07-02 15:46] LABS: PLATELET COUNT 415 10^3/uL (150-400)
[2017-07-02] MEDS ORDERED: ETOMIDATE 40 MG/20 ML INJ IVP ONE (15:57)
[2017-07-02] MEDS ORDERED: INSULIN REGULAR HUMAN 100 UNIT, COSIGN. REQUIRED 1 EA in NS 100 ML IV ONE (16:02)
[2017-07-02] MEDS ORDERED: fentaNYL 100 MCG/2 ML INJ ONE (16:08)
[2017-07-02 16:27] LABS: INR 1.3 (0.83-1.16); PROTIME(PATIENT) 16.4 SEC (12.0-15.0)
[2017-07-02] MEDS ORDERED: fentaNYL 100 MCG/2 ML INJ IVP ONE ×2 (16:46→16:58)
[2017-07-02] MEDS ORDERED: PROPOFOL 200 MG/20 ML VIAL IVP ONE (17:05)
--- NOTE | 2017-07-02 17:06 | GHP ---
[f rep st] HISTORY AND PHYSICAL DATE OF ADMISSION: 07/02/2017 CHIEF COMPLAINT: Found unresponsive. HISTORY OF PRESENT ILLNESS: This is a 51-year-old female, who resides at [facility], who was brought to the emergency department by EMS after she was found unresponsive. In the emergency department, she was noted to have a diaper full of melena. She was subsequently intubated. During the time of my exam, the patient is intubated and unresponsive. All history was obtained via ER report and review of medical records. PAST MEDICAL HISTORY: 1. Schizophrenia. 2. Reactive airway disease. 3. Bipolar disease. 4. Diabetes mellitus. 5. Hyperlipidemia. 6. Hypertension. 7. Hypothyroidism. 8. Hospitalization in June of 2017 for pneumonia. PAST SURGICAL HISTORY: Unobtainable. MEDICATIONS: Reviewed. Refer to [facility] for details. ALLERGIES: Penicillin. SOCIAL HISTORY: She lives at [facility]. She denies any alcohol, tobacco, or illicit drug use. FAMILY HISTORY: Unobtainable. REVIEW OF SYSTEMS: A comprehensive 10-point review of systems was attempted but unobtainable due to the patient's altered mental status. PHYSICAL EXAMINATION: VITAL SIGNS: Blood pressure 80/46, pulse of 99, respiratory rate 16, O2 saturation 100%. GENERAL: Ill-appearing unresponsive. HEAD: Normocephalic, atraumatic. EYES: PERRLA. Sclerae anicteric. MOUTH: Moist mucous membranes. NECK: Supple. No lymphadenopathy. CARDIOVASCULAR: S1-S2, no JVD. No lower extremity edema. PULMONARY: Lungs are clear. No wheezes, rales, or rhonchi. ABDOMEN: Soft, nontender, nondistended. No guarding or rebound tenderness. Normoactive bowel sounds. The patient is noted to have nathalia melena. EXTREMITIES: No clubbing or cyanosis. Extremities are warm to touch. NEURO: The patient is unarousable, not following commands. SKIN: Clear, no rashes. DIAGNOSTICS: WBC is 20.3, hemoglobin 9.3, with repeat of 5.4, hematocrit 28.6, with repeat of 16, platelets 415. INR 1.3. ABG: PH of 7.05, pCO2 23, bicarb 7. Lactic acid was 1.2. Sodium 138, potassium 5, chloride 109, BUN 118, creatinine of 3.4, glucose 458, calcium 10.9, phosphorus 8. Troponin pending. Beta hydroxybutyrate is pending. Abdominal x-ray: NG tube is in the stomach. Chest x-ray, which I visualized and personally interpreted, negative for pneumonia. EKG, which I visualized and interpreted, shows sinus rhythm, rate 95 beats per minute, no acute ischemic changes, borderline QT prolongation with a QT of 392. ASSESSMENT/PLAN: This is a 51-year-old female, resident of [facility] with history of schizophrenia and diabetes, who was hospitalized earlier this month with pneumonia presenting with: 1. Acute encephalopathy/obtundation, most likely due to below. 2. Suspected upper gastrointestinal bleed. 3. Acute blood loss anemia secondary to above. 4. Diabetic ketoacidosis with severe anion gap metabolic acidosis with a pH of 7.05. 5. Elevated BUN, most likely due to upper gastrointestinal bleeding. 6. Acute kidney injury with creatinine of 3.2. 7. Possible Severe Sepsis PLAN: 1. Admit to ICU. 2. The patient has been typed and screened and will transfuse blood. 3. Protonix drip. 4. I discussed the case with Dr. Meek from GI who plans to do emergent EGD. 5. We will start DKA protocol with insulin drip. The patient currently does not meet criteria to start a bicarb drip given that her pH is greater than 6.9. 6. Monitor renal function. Avoid nephrotoxins. 7. The patient is extremely ill and will be carefully monitored in the intensive care unit. She did arrive with paperwork from [facility] indicating that she is full code status. Chemical DVT prophylaxis is contraindicated in the setting of acute blood loss anemia. 8. Send Blood Cultures and Procalcitonin. Will start empiric antibiotics with renally dosed vanco/levaquin (h/o PCN allergy) 9. Will hold all po meds for now including her Clozaril which will need to be resumed BRENNAN 45 minutes of critical care time was spent on the care of this critically ill patient. /[id number]/MODL MTDD
[2017-07-02] MEDS: PROPOFOL/EMULSION 100 ML IV SCH (17:37)
--- NOTE | 2017-07-02 17:53 | PDMN ---
Medical Necessity Medical necessity: C/M review: est. > 2 MN LOS for eval and TX of acute and persistent encephalopathy / obtundation, suspected upper GI bleed, acute blood loss anemia, DKA, acute kidney injury, elevated BUN requiring emergent intubation in ED, planned GI consult and emergent EGD, ongoing mechanical ventilation, multiple IV antibiotics, IV Human Regular Insulin infusion, IV Pantoprazole infusion, DKA protocol, cardiac monitoring, pulse oximetry, blood transfusion, monitor renal function, acute inpt PT/OT in ICU, comorbid patient found unresponsive with diaper full of melena at [facility] just prior to this admission, schizophrenia, reactive airway disease, bipolar disease, diabetes, hyperlipidemia, hypertension, hypothyroidism, 06/2017 hospitalization for pneumonia per H/P.
[2017-07-02] MEDS ORDERED: ERYTHROMYCIN LACTOBIONATE 250 MG in NS 100 ML IV ONE (18:00)
--- NOTE | 2017-07-02 18:24 | ASMTCMCOM ---
CM Note CM Note Notes: Patient presented to the ED via EMS from [facility] where she has been a resident for the past month. Patient was brought in for AMS (pt unresponsive on arrival to ED) and hyperglycemia. Patient was breathing but ultimately required intubation. Patient's bloodwork & evidence of blood in stool indicates a GI bleed; pt to be seen by GI in ICU and to receive emergent EGD. Spoke with patient's Aunt Carolyn Guerra ([phone]) who is patient's MDPOA lives in [place] and contacted other family members. Carolyn and patient's mother Elizabeth, brother Johnnie, [id number] Jody, brother Albaro, and nephew Hayden arrived to the ED. After discussion with hospitalist and ED MD, the family collectively decided that if patient's heart were to stop they do not want patient resuscitated. Otherwise, they would like all other efforts made. This was relayed and confirmed by ED MD Dr Sosa Emery and she will pass along to hospitalist and place directive in patient's chart. Carolyn had expressed concerns about patient's care at [facility] and says she has filed a report and contacted High [employer] Assistant Football Coach and even contacted corporate, but has not received much response or action in terms of improving patient care. This CM provided empathetic listening and also provided her with [facility] Ombudsman contact information and encouraged her to contact them. Offered to call the supervisor microwave to provide spiritual and emotional support and assist in prayers and family would like additional support. Data Integrity Analyst paged. Family assisted to ICU waiting area and shown where the chapel is located. EMERGENCY DEPARTMENT COORDINATOR aware of where family can be found. Date Signed: 07/02/2017 06:24 PM Electronically Signed By:Erin Zelaya RN
[2017-07-02] MEDS ORDERED: ETOMIDATE 40 MG/20 ML INJ ONE (18:25)
--- NOTE | 2017-07-02 18:40 | GIREPORT ---
[facility] Surgical Services - Endoscopy Department Patient Name: Yeimi Gu Procedure Date: 07/02/2017 5:45 PM Patient Type: Inpatient Attending MD/ ER Physician: Lj Meek MD Procedure: Upper GI endoscopy Indications: Melena Patient Profile: 51 year old female presents for evaluation of an upper GI bleed. Providers: Lj Meek MD Medicines: Intubated from ER. No additional sedation given- on propofol. Complications: No immediate complications. Estimated blood loss: Minimal. Description of Procedure: After obtaining informed consent, the endoscope was passed under direct vision. Throughout the procedure, the patient's blood pressure, pulse, and oxygen saturations were monitored continuously. The Endoscope was intro duced through the mouth, and advanced to the second part of duodenum. The [facility] er GI endoscopy was accomplished without difficulty. The patient tolerated th e procedure well. Findings: The examined esophagus was normal. Hematin (altered blood/jtyesf-sgtwzh-bawa material) with clots was foun d in the gastric fundus and in the gastric body. This obscured visualization . One oozing cratered duodenal ulcer with adherent clot was found in the duodenal bulb on the anterior wall. The lesion was 25 mm in largest dimension. Coagulation for bleeding prevention using monopolar probe wa s successful. Estimated Blood Loss: Estimated blood loss was minimal. Post Op Diagnosis: - Normal esophagus. - Hematin (altered blood/oihcvu-wlbzfh-qwyz material) in the gastric fu ndus and in the gastric body. - One oozing duodenal ulcer with adherent clot. Treated with a monopola r probe. - No specimens collected. - Etiology? Suspect duodenal ulcer is cause of bleeding. S/p Goldprobe. High risk of rebleed. This ulcer is located close to where I expect the pattie charles duodenal artery to be- arterial bleed? If rebleed can consider repeat E GD versus IR with empiric coiling of GDA. Recommendation: - Use a proton pump inhibitor IV infusion. - Monitor H/H - No NSAIDs - Thank you for allowing me to participate in the care of your patient. Attending Participation: I personally performed the entire procedure. Lj Meek MD Lj Meek MD 07/02/2017 6:39:50 PM This report has been signed electronicallyLj Meek MD Number of Addenda: 0 Note Initiated On: 07/02/2017 5:45 PM [email or web address]
--- NOTE | 2017-07-02 19:17 | GCON ---
[f rep st] CONSULTATION DATE OF CONSULTATION: 07/02/2017 CONSULTING PHYSICIAN: Dr. Jeevan Jean Baptiste REASON FOR CONSULTATION: Upper GI bleed. CHIEF COMPLAINT: GI bleed. HISTORY OF PRESENT ILLNESS: The patient is a 51-year-old female with a history of aspirin use, diabetes mellitus type 2, bipolar disorder who presents to [facility] via EMS from [facility] for altered mental status and being more lethargic. The patient was recently admitted to [facility] on 06/09/2017 with confusion. She was discharged on 2016. In the emergency room, the patient was significantly confused. Her blood glucose level was 534 on admission. Her underwear was checked and was noted to have black, tarry stools. A NG tube was placed, and a large amount of coffee ground material was aspirated. Blood work was done which did reveal significant anemia for a hemoglobin around 9. She was noted to be hypotensive and fluids were given and she was eventually intubated by the ER staff. The information is quite limited since she was intubated and sedated. Thus, most of the information is obtained through the chart. I am being consulted by Dr. Jean Baptiste to evaluate the patient for an upper GI bleed. PAST MEDICAL HISTORY: 1. Bipolar disorder/schizophrenia. 2. Reactive airway disease. 3. Diabetes mellitus. 4. Hyperlipidemia. 5. Hypertension. 6. Hypothyroidism. PAST SURGICAL HISTORY: None known. MEDICATIONS: Silo, spironolactone, Tylenol, albuterol, aspirin, atorvastatin , clozapine, Advair, Levemir, levothyroxine, pioglitazone, MiraLAX. ALLERGIES: Penicillin. SOCIAL HISTORY: No significant alcohol or tobacco use. Lives in [facility]. FAMILY HISTORY: Unobtainable since patient is intubated and sedated.. REVIEW OF SYSTEMS: Unobtainable due to the patient being intubated. PHYSICAL EXAMINATION: VITAL SIGNS: Blood pressure 93/60, pulse 97, temperature 36.4. GENERAL: Intubated. HEENT: Normocephalic, atraumatic. Sclerae are anicteric. Mucosa moist. NECK: No JVD. CARDIOVASCULAR: Regular rate and rhythm. Positive S1, S2. No murmurs appreciated. LUNGS: Clear bilaterally. No wheezes, rales or rhonchi. ABDOMEN: Soft, nontender, nondistended. Positive bowel sounds. No guarding. No rebound. EXTREMITIES: No clubbing, cyanosis, or edema. NEUROLOGIC: Unable to obtain. Patient is unarousable. SKIN: No rash. Non icteric. LYMPH: No lymphadenopathy. Psych: Unable to assess since intubated and sedated. Musculoskeletal: No joint effusions. LABORATORY DATA: WBCs 20.31, hemoglobin 9.3, hematocrit 28.6, platelets 415. INR 1.3. Sodium 138, potassium 5.0, chloride 109, BUN 112, creatinine 3.2. ASSESSMENT AND PLAN: 1. Upper gastrointestinal bleed- with significant blood noted through the nasogastric tube, as well as melenic stool. At this time, I recommend monitoring in the intensive care unit. Recommend to monitor hemoglobin and hematocrit and transfuse as needed. Would recommend Protonix infusion as well. Will also order erythromycin 250 mg x1 to clear stomach. Will recommend to proceed with emergent upper endoscopy. 2. Bipolar disorder. 3. Reactive airway disease. 4. Diabetes mellitus. 5. Hyperlipidemia. 6. Hypertension. 7. Hypothyroidism. Thank you very much for this consultation. /[id number]/MODL MTDD
[2017-07-02] MEDS: PANTOPRAZOLE SODIUM 80 MG in NS 100 ML IV SCH (19:25)
[2017-07-02] MEDS ORDERED: D5W 1,000 ML IV SCH (19:36)
[2017-07-02] MEDS ORDERED: INSULIN REGULAR HUMAN 100 UNIT/ML IVP PRN (19:36)
[2017-07-02] MEDS ORDERED: INSULIN REGULAR HUMAN 100 UNIT in NS 100 ML IV SCH (19:36)
[2017-07-02] MEDS ORDERED: VANCOMYCIN 1 GM in D5W 250 ML IV ONE (20:30)
[2017-07-02] MEDS ORDERED: VANCOMYCIN HCL/NORMAL SALINE 250 ML IV ONE (20:30)
--- NOTE | 2017-07-02 21:38 | HOSPPROG ---
Hospitalist Progress Note Assessment/Plan: Addendum: As notified by the patient's RN that she has not a woken since her resuscitation. A CT of the head was suggested by the RN which sounds reasonable. Will order a stat head CT to evaluate for intracranial injury. I am unsure to help along the patient was up to 104 prior to arrival at the hospital. She could have an anoxic injury. Objective: Vital Signs Temp Pulse Resp BP Pulse Ox 37.1 C 91 15 93/48 L 100 07/02/17 19:00 07/02/17 20:30 07/02/17 20:30 07/02/17 19:00 07/02/17 20:30 07/01/17 07/02/17 07/03/17 05:59 05:59 05:59 Intake Total 5400 Output Total 800 Balance 4600 PT 16.4 SEC (12.0-15.0) H 07/02/17 13:15 INR 1.30 (0.83-1.16) H 07/02/17 13:15 ICD10 Worksheet Patient Problems: Problems Problem Status Onset Pneumonia Acute Altered mental status Acute Upper GI bleed Acute Hyperglycemia Acute
[2017-07-02 21:46] LABS: PLATELET COUNT 192 10^3/uL (150-400)
[2017-07-03] MEDS ORDERED: ALBUMIN 25% 100 ML IV ONE (01:01)
[2017-07-03] MEDS ORDERED: NS 1,000 ML IV ONE (01:01)
[2017-07-03] MEDS: PANTOPRAZOLE SODIUM 80 MG in NS 100 ML IV SCH ×3 (05:52→20:23)
[2017-07-03 06:49] LABS: PLATELET COUNT 183 10^3/uL (150-400)
[2017-07-03] MEDS ORDERED: PROTOCOL POTASSIUM 1 DOSE MISC PRN (07:55)
[2017-07-03] MEDS ORDERED: POTASSIUM Cl (KCl) 50 ML IV SCH (08:00)
[2017-07-03] MEDS ORDERED: POTASSIUM Cl (KCl) 50 ML IV ONE ×3 (08:15→20:42)
[2017-07-03] MEDS ORDERED: NON-FORMULARY NEW DRUG (Insulin Detemir [Levemir Flextouch] 40 UNIT) SQ SCH (09:15)
--- NOTE | 2017-07-03 09:22 | HOSPPROG ---
Hospitalist Progress Note Assessment/Plan: 51 yo F w dm, schizophrenia admitted w encephalopathy, metabolic acidosis, high risk UGIB UGIB: no melena high risk lesion noted, s/p cautery bun trending down and hct stable, albeit low continue ppi gtt q6 hct on abx ABLA: as above ?DKA: not dka dc insulin gtt start levemir encephalopathy: multifactorial non con CT OK now CONNELLY w sedation held follow breathing on own w CPAP trial REJI: pre renal and improving markedly elevated bun 2/2 UGIB metabolic acidosis: 2/2 severe anemia and hypotension improving proph: scd's dispo: critical ICU 40' crit care time Subjective: case d/w dr mcfadden. cxr w no infiltrate, no ptx (interp by me). MARICEL Objective: Vital Signs Temp Pulse Resp BP Pulse Ox 38.1 C 95 33 H 104/50 L 100 07/03/17 07:00 07/03/17 07:00 07/03/17 07:00 07/03/17 07:00 07/03/17 07:00 Laboratory Results 07/03/17 06:30 07/03/17 06:30 07/02/17 07/03/17 07/04/17 05:59 05:59 05:59 Intake Total 06924 Output Total 2400 Balance 8259 PT 16.4 SEC (12.0-15.0) H 07/02/17 13:15 INR 1.30 (0.83-1.16) H 07/02/17 13:15 - Physical Exam Constitutional: no apparent distress, other (intubated. agitated w tooth brushing) Eyes: PERRL, anicteric sclera Ears, Nose, Mouth, Throat: moist mucous membranes Cardiovascular: regular rate and rhythym, tachycardia Respiratory: no respiratory distress, no rales or rhonchi Gastrointestinal: normoactive bowel sounds, soft, non-tender abdomen Genitourinary: wood in urethra Skin: warm, normal color Musculoskeletal: No full muscle strength Neurologic: No AAOx3 Psychiatric: No interacting appropriately ICD10 Worksheet Patient Problems: Problems Problem Status Onset Altered mental status Acute Hyperglycemia Acute Upper GI bleed Acute Pneumonia Acute
[2017-07-03] MEDS ORDERED: POTASSIUM Cl (KCl) 10 MEQ in NS 50 ML IV SCH (09:30)
[2017-07-03] MEDS ORDERED: D50W 25 GM/50 ML SYR IVP PRN (09:30)
[2017-07-03] MEDS ORDERED: NS 500 ML IV ONE (09:33)
[2017-07-03] MEDS ORDERED: NS 1,000 ML IV SCH (09:45)
[2017-07-03] MEDS: INSULIN GLARGINE 100 UNITS/ML SYRINGE SC SCH (10:11)
[2017-07-03] MEDS ORDERED: SODIUM BICARBONATE 50 MEQ/50 ML SYR ONE (10:44)
[2017-07-03] MEDS: INSULIN LISPRO 100 UNIT/ML SC SCH ×2 (13:06→18:36)
[2017-07-03] MEDS: PROPOFOL/EMULSION 100 ML IV SCH (13:09)
--- NOTE | 2017-07-03 14:03 | SOAPPROG ---
JENNI Progress Note Assessment/Plan: Assessment: Plan: 07/03/17 14:00 A/P 1. GI Bleed- upper. S/p EGD with large duodenal ulcer in area of gastroduodenal artery. No evidence of active bleed. Recommend to continue PPI infusion. Lesion high risk for rebleed. If rebleed consider IR consultation versus repeat EGD. Subjective: cc: Follow up GI bleed Intubated and sedated. According to staff, no recent BM. Objective: Vital Signs Temp Pulse Resp BP Pulse Ox 37.6 C 95 17 105/47 L 100 07/03/17 13:00 07/03/17 13:00 07/03/17 13:00 07/03/17 13:00 07/03/17 13:00 Laboratory Results 07/03/17 11:40 07/03/17 11:40 07/02/17 07/03/17 07/04/17 05:59 05:59 05:59 Intake Total 97528 Output Total 2400 Balance 8259 PT 16.4 SEC (12.0-15.0) H 07/02/17 13:15 INR 1.30 (0.83-1.16) H 07/02/17 13:15 Physical Exam - Physical Exam General Appearance: other (intubated) EENT: scleral icterus (L), No scleral icterus (R) Respiratory: lungs clear, normal breath sounds, No crackles, No rales, No wheezing Cardiac/Chest: regular rate, rhythm, No irregularly irregular Abdomen: non-tender, soft, No distended, No guarding, No rebound Skin: normal color, warm/dry ICD10 Worksheet Patient Problems: Problems Problem Status Onset Pneumonia Acute Altered mental status Acute Upper GI bleed Acute Hyperglycemia Acute
--- NOTE | 2017-07-03 16:24 | GCON ---
[f rep st] CONSULTATION CRITICAL CARE CONSULTATION DATE OF CONSULTATION: 07/03/2017 HISTORY OF PRESENT ILLNESS: This patient is a 51-year-old female, who lives at [facility], who waters s poor mental status at baseline but was found to be unresponsive. She was noted to have melena on a rrival, as well as DKA and because of her inability to protect her airway, she was intubated at that time. She subsequently underwent EGD, which revealed a duodenal ulcer and was treated, though risk o f rebleeding was high. She was left on the ventilator overnight, was breathing well this morning wit h plans to extubate in the very near future. REVIEW OF SYSTEMS: Otherwise negative. PAST MEDICAL HISTORY: Includes: 1. Schizophrenia. 2. Reactive airways disease. 3. Bipolar disease. 4. Diabetes. 5. Hyperlipidemia. 6. Hypertension. 7. Hypothyroidism. 8. Pneumonia recently. PAST SURGICAL HISTORY: Unknown. ALLERGIES: Penicillin. SOCIAL HISTORY: She has no alcohol, tobacco, or IV drug use. FAMILY HISTORY: Noncontributory at this time. MEDICATIONS: Include an insulin drip, as well as Levaquin, pantoprazole, propofol, vancomycin. EXAM: VITAL SIGNS: At the time of my visit, she was afebrile. Blood pressure was 99/48, heart rate 100, respirations 17, oxygen saturation 100% on minimal vent support. GENERAL: She is an obese wom an, who is sedated on the ventilator, but in no apparent distress, without using accessory muscles fo r breathing. HEENT: Pupils equally round and reactive to light. Nonicteric, noninjected. Mucous m embranes moist, without erythema or exudate. LUNGS: Breath sounds were clear to auscultation bilate rally without wheezes, rubs, rales. HEART: Regular rate and rhythm. ABDOMEN: Soft, nontender, non distended, with hypoactive bowel tones. EXTREMITIES: No clubbing, cyanosis, or edema. NEUROLOGIC: Nonfocal. SKIN: Warm and dry without rash. LABORATORY DATA: She came in with a white count of 21, dropped to 16.9. Hematocrit 31, platelets 19 3. Blood gas showed a pH 7.3, pCO2 31, PO2 97, bicarb 16, oxygen saturation 97%. Her creatinine on arrival was 2.2, is down to 1.6 now. Sodium is 143, potassium 3.7 after supplement. Chloride 117, b icarb 16, anion gap only 10. ASSESSMENT AND PLAN: 1. Respiratory failure, presumed due to airway protection in the setting of gastrointestinal bleedin g. She appears to be weaning quite well and I think she ought to extubate very soon. 2. Gastrointestinal bleed due to a duodenal ulcer. She is getting proton pump inhibitors and no fur ther blood products have been required. 3. Diabetic ketoacidosis is being managed by diabetic ketoacidosis protocol and should be able to tr ansition off this quite quickly. The likely source is the gastrointestinal bleed. 4. Acute kidney injury. This is likely due to dehydration. She seems to be responding well to aggr essive fluids. A total of 40 minutes of critical care time was involved in the evaluation and management of this pat ient. /[id number]/MODL
[2017-07-03] MEDS ORDERED: ORAL BALANCE GEL TUBE PO PRN (19:47)
[2017-07-03] MEDS: VANCOMYCIN 1.5 GM in D5W 250 ML IV SCH (20:23)
[2017-07-04 04:23] LABS: PLATELET COUNT 192 10^3/uL (150-400)
[2017-07-04] MEDS: INSULIN LISPRO 100 UNIT/ML SC SCH ×5 (04:54→20:38)
[2017-07-04] MEDS ORDERED: POTASSIUM Cl (KCl) 50 ML IV ONE (05:20)
[2017-07-04] MEDS: PANTOPRAZOLE SODIUM 80 MG in NS 100 ML IV SCH ×2 (05:33→14:44)
[2017-07-04] MEDS: INSULIN GLARGINE 100 UNITS/ML SYRINGE SC SCH (09:44)
[2017-07-04] MEDS ORDERED: 1/2 NS 1,000 ML IV SCH (10:30)
--- NOTE | 2017-07-04 10:59 | HOSPPROG ---
Hospitalist Progress Note Assessment/Plan: 51 yo F w dm, schizophrenia admitted w encephalopathy, metabolic acidosis, high risk UGIB UGIB: no melena high risk lesion noted, s/p cautery bun trending down and hct stable, albeit low continue ppi gtt q12 hct on abx pneumonia: suspected aspiration, seen on ct change abx to nosocomial coverage w vanc cefepime ABLA: as above ?DKA: not dka dc insulin gtt start levemir encephalopathy: multifactorial non con CT OK now CONNELLY w sedation held follow breathing on own w CPAP trial REJI: pre renal and improving markedly elevated bun 2/2 UGIB metabolic acidosis: 2/2 severe anemia and hypotension improving proph: scd's dispo: critical ICU Subjective: case d/w Dr Smith. cxr w possible L sided infiltrate (interp by me) - vanc added for nosocomial coverage Objective: Vital Signs Temp Pulse Resp BP Pulse Ox 37.1 C 96 19 124/66 H 100 07/04/17 08:00 07/04/17 08:00 07/04/17 08:00 07/04/17 08:00 07/04/17 08:00 Laboratory Results 07/04/17 10:02 07/04/17 04:20 07/03/17 07/04/17 07/05/17 05:59 05:59 05:59 [place] 90708 4498.9 200 Output Total 2400 5950 1025 Balance 8259 -1451.1 -825 PT 16.4 SEC (12.0-15.0) H 07/02/17 13:15 INR 1.30 (0.83-1.16) H 07/02/17 13:15 ICD10 Worksheet Patient Problems: Problems Problem Status Onset Altered mental status Acute Hyperglycemia Acute Upper GI bleed Acute Pneumonia Acute
[2017-07-04] MEDS: CEFEPIME HCL 2 GM in NS 100 ML IV SCH ×2 (11:36→21:40)
--- NOTE | 2017-07-04 11:55 | SOAPPROG ---
JENNI Progress Note Assessment/Plan: Assessment: Plan: 07/03/17 14:00 A/P 1. GI Bleed- upper. S/p EGD with large duodenal ulcer in area of gastroduodenal artery. No evidence of active bleed. Recommend to continue PPI infusion. Lesion high risk for rebleed. If rebleed consider IR consultation versus repeat EGD. 07/04/17 11:52 A/P 1. Upper GI bleed- large duodenal ulcer. No signs of ongoing bleed. Continue PPI therapy. GI will follow. 2. Hypernatremia Subjective: cc: F/u GI bleed No recent BM. Lethargic Objective: Vital Signs Temp Pulse Resp BP Pulse Ox 37.1 C 96 18 130/65 H 99 07/04/17 10:00 07/04/17 10:00 07/04/17 10:00 07/04/17 10:00 07/04/17 10:00 Laboratory Results 07/04/17 10:02 07/04/17 04:20 07/03/17 07/04/17 07/05/17 05:59 05:59 05:59 Intake Total 15603 4498.9 200 Output Total 2400 5950 1325 Balance 8259 -1451.1 -1125 PT 16.4 SEC (12.0-15.0) H 07/02/17 13:15 INR 1.30 (0.83-1.16) H 07/02/17 13:15 Physical Exam - Physical Exam EENT: No scleral icterus (R), No scleral icterus (L) Respiratory: lungs clear, normal breath sounds, No rales, No rhonchi Cardiac/Chest: systolic murmur, No regular rate, rhythm, No bradycardia, No tachycardia Abdomen: non-tender, soft, No distended, No guarding, No rebound Skin: normal color Neuro/Psych: No alert (lethargic) ICD10 Worksheet Patient Problems: Problems Problem Status Onset Pneumonia Acute Altered mental status Acute Upper GI bleed Acute Hyperglycemia Acute
[2017-07-04] MEDS: D5W 1,000 ML IV SCH ×4 (14:00→18:47)
[2017-07-04] MEDS ORDERED: POTASSIUM Cl (KCl) 50 ML IV SCH ×2 (14:00→21:28)
--- NOTE | 2017-07-04 15:49 | PDCONSULT ---
Retail Leasing Agent Note: Assessment/Plan: Hypernatremia: pt has had sudden change from 142 yesterday to now 162. She has had massive salt dose with abundant NS given in two days, up to 12L. Also, this is in setting of recovering REJI, which may have contributed to inability to properly handle salt load. She also has h/o lithium use, no known history of hypernatremia before but may have some underlying DI. Her total free water deficit is approximately 9.6L - Will give 1L D5W bolus now, and will repeat if needed. - Will continue D5W at a rate of 200ml/hr. - Will continue to monitor sodium q2h and adjust free water replacement as needed. - Will check urine osm. REJI: likely prerenal, Cr baseline is 0.9 and was up to 3.4 on presentation, now down to 1.4. - Will continue to monitor. - Avoid hypotension and nephrotoxins. Hypokalemia: K 3.6, being replaced, will continue to monitor. Metabolic acidosis: pt has a hyperchloremic metabolic acidosis, off NS now, will continue to monitor. Anemia: pt with GI bleed, now stable s/p large transfusion, will continue to monitor. Thank you for the interesting consult. Nephrology will continue to follow, please call if you have any additional questions or concerns. H & P Stated Complaint: AMS HPI/ROS: HPI: Ms. Gu is a 51 yo F with h/o DMII and bipolar disorder who presented to [facility] from [facility] on 07/02/17 unresponsive. She was found to have a large GI bleed and REJI with Cr up to 3.4, had been 0.9 earlier in 06/2017. She was intubated, given abundant IVFs and PRBCs and taken for emergent EGD, found to have a large duodenal ulcer that is no longer actively bleeding. She is now extubated. Sodium on presentation was 137, up to 143 yesterday morning. This morning sodium is up to 157, so NS was switched to 1/2NS. Repeat sodium this afternoon is up to 162, prompting referral. In her first two days of hospitalization, pt received over 15L of fluid total, 3L of PRBCs and the rest NS. She also has had improvement in REJI with Cr down from 3.4 to 1.4. ROS: Unable to obtain 2/2 clinical condition - Personal History Current Tetanus/Diphtheria Vaccine: Unsure - Medical/Surgical History Hx Asthma: No Hx Chronic Respiratory Disease: No Hx Diabetes: Yes Hx Cardiac Disease: No Hx Renal Disease: No Hx Cirrhosis: No Hx Alcoholism: No Hx HIV/AIDS: No Hx Splenectomy or Spleen Trauma: No Other PMH: PMHx: schizoaffective disorder, bipolar disorder, cognitive communication deficit, DMII - Family History Significant Family History: Other (unable to obtain 2/2 clinical condition) - Social History Smoking Status: Former smoker - Physical Exam Exam: General: sedate, no acute distress Eyes: EOMI, PERRL OP: clear CV: RRR Resp: slightly labored respirations on NC Abd: Soft, NT/ND Ext: no edema BLE Neuro: CN II-XII grossly intact, lethargic, eyes flutter to painful stimulus Skin: C/D/I, no rash : wood catheter in place, draining clear yellow urine Constitutional: Initial Vital Signs Temperature (C) 36.6 C 07/02/17 15:07 Heart Rate 95 07/02/17 15:07 Respiratory Rate 10 L 07/02/17 15:07 Blood Pressure 109/49 L 07/02/17 15:07 O2 Sat (%) 65 L 07/02/17 15:07 O2 Delivery Mode Room Air Allergies/Adverse Reactions: Penicillins Allergy (Mild, Verified 06/09/17 19:33) Rash Home Medications: Medication Instructions Recorded Albuterol [Proventil Inhaler HFA 2 puffs IH Q4 PRN 06/09/17 (*)] Albuterol [Proventil Neb] 3 ml IH Q4 PRN 06/09/17 Aspirin [Aspirin 81mg (*)] 81 mg PO DAILY 06/09/17 Atorvastatin Calcium [Lipitor 10 10 mg PO HS 06/09/17 mg (*)] Fluticasone/Salmeter 250/50Mcg 1 puffs IH BID 06/09/17 [Advair 250/50 (*)] Insulin Detemir [Levemir Flextouch] 40 unit SQ DAILY 06/09/17 Linagliptin [Tradjenta] 5 mg PO DAILY 06/09/17 Pioglitazone HCl [Actos] 45 mg PO DAILY 06/09/17 Polyethylene Glycol 3350 [Miralax 17 gm PO DAILY 12/08/17 17 gm (*)] Spironolactone [Aldactone 25 MG 25 mg PO DAILY 06/09/17 (*)] cloZAPine [Clozaril (*)] 75 mg PO BID 06/09/17 cloZAPine [Clozaril (*)] 100 mg PO BID 06/09/17 [place] Carbonate [[place] 300 mg PO BID #30 tab 06/11/17 Carbonate Tab 300 mg (*)] Acetaminophen [Tylenol 325mg (*)] 325 - 650 mg PO Q6HRS PRN 07/02/17 Levothyroxine [Synthroid 112 mcg 112 mcg PO DAILY06 07/02/17 (*)] Lab and Imaging 07/04/17 10:02 07/04/17 12:35 WBC 18.56 10^3/uL (3.80-9.50) H 07/04/17 04:20 RBC 3.42 10^6/uL (4.18-5.33) L 07/04/17 04:20 Hgb 10.6 g/dL (12.6-16.3) L 07/04/17 10:02 POC Hgb 12.9 gm/dL (12.6-16.3) 07/02/17 18:16 Hct 31.5 % (38.0-47.0) L 07/04/17 10:02 POC Hct 38 % (38-47) 07/02/17 18:16 MCV 93.3 fL (81.5-99.8) 07/04/17 04:20 MCH 31.9 pg (27.9-34.1) 07/04/17 04:20 MCHC 34.2 g/dL (32.4-36.7) 07/04/17 04:20 RDW 17.4 % (11.5-15.2) H 07/04/17 04:20 Plt Count 192 10^3/uL (150-400) 07/04/17 04:20 MPV 10.7 fL (8.7-11.7) 07/04/17 04:20 Neut % (Auto) 88.8 % (39.3-74.2) H 07/04/17 04:20 Lymph % (Auto) 4.1 % (15.0-45.0) L 07/04/17 04:20 [place] % (Auto) 5.8 % (4.5-13.0) 07/04/17 04:20 Eos % (Auto) 0.1 % (0.6-7.6) L 07/04/17 04:20 Baso % (Auto) 0.2 % (0.3-1.7) L 07/04/17 04:20 Nucleat RBC Rel Count 0.0 % (0.0-0.2) 07/04/17 04:20 Absolute Neuts (auto) 16.49 10^3/uL (1.70-6.50) H 07/04/17 04:20 Absolute Lymphs (auto) 0.77 10^3/uL (1.00-3.00) L 07/04/17 04:20 Absolute Monos (auto) 1.08 10^3/uL (0.30-0.80) H 07/04/17 04:20 Absolute Eos (auto) 0.01 10^3/uL (0.03-0.40) L 07/04/17 04:20 Absolute Basos (auto) 0.03 10^3/uL (0.02-0.10) 07/04/17 04:20 Absolute Nucleated RBC 0.00 10^3/uL (0-0.01) 07/04/17 04:20 Immature Gran % 1.0 % (0.0-1.1) 07/04/17 04:20 Seg Neutrophils % 86 % 07/02/17 21:30 Band Neutrophils % 5 % 07/02/17 21:30 Lymphocytes % 7 % 07/02/17 21:30 Monocytes % 2 % 07/02/17 21:30 Immature Gran # 0.18 10^3/uL (0.00-0.10) H 07/04/17 04:20 Absolute Seg Neuts 18.38 10^/uL (1.70-6.50) H 07/02/17 21:30 Absolute Band Neuts 1.07 10^3/uL (0.00-0.70) H 07/02/17 21:30 Absolute Lymphocytes 1.50 10^3/uL (1.00-3.00) 07/02/17 21:30 Absolute Monocytes 0.43 10^3/uL (0.30-0.80) 07/02/17 21:30 Differential Comment 07/02/17 15:05 Platelet Estimate ADEQUATE (ADEQ) 07/02/17 21:30 Polychromasia 1+ H 07/02/17 21:30 PT 16.4 SEC (12.0-15.0) H 07/02/17 13:15 INR 1.30 (0.83-1.16) H 07/02/17 13:15 APTT 29.9 SEC (23.0-38.0) 07/02/17 13:15 Puncture Site LEFT RADIAL 07/03/17 12:26 Patient Temperature 37.0 DEGREES 07/03/17 12:26 pCO2 31 mmHg (34-38) L 07/03/17 12:26 pO2 97 mmHg (65-75) H 07/03/17 12:26 Total CO2 16 mEq/L (23-27) L 07/03/17 12:26 ABG pH 7.30 (7.35-7.45) L 07/03/17 12:26 ABG PO2/FiO2 Ratio 243 RATIO 07/03/17 12:26 ABG HCO3 15 mEq/L (22-26) L 07/03/17 12:26 ABG O2 Saturation 97 % (92-95) H 07/03/17 12:26 ABG Base Excess -10.2 mEq/L (-2.5-2.5) L 07/03/17 12:26 O2 Concentration % 40 % (0-100) 07/03/17 12:26 Actual Respiration Rate 21 07/03/17 12:26 Set Respiration Rate 15 07/02/17 22:29 SIMV YES 07/02/17 22:29 Tidal Volume 550 07/02/17 22:29 End Tidal CO2 31 07/03/17 12:26 PEEP 5 07/03/17 12:26 Pressure Support 5 07/03/17 12:26 CPAP YES 07/03/17 12:26 POC Sodium 141 mEq/L (134-144) 07/02/17 18:16 Sodium 162 mEq/L (134-144) H* 07/04/17 12:35 POC Potassium 4.3 mEq/L (3.3-5.0) 07/02/17 18:16 Potassium 3.6 mEq/L (3.5-5.2) 07/04/17 12:35 POC Chloride 111 mEq/L (97-110) H 07/02/17 18:16 Chloride 135 mEq/L (97-110) H 07/04/17 12:35 Carbon Dioxide 18 mEq/l (22-31) L 07/04/17 12:35 Anion Gap 9 mEq/L (8-16) 07/04/17 12:35 POC BUN 101 mg/dL (7-23) H* 07/02/17 18:16 BUN 60 mg/dL (7-23) H 07/04/17 12:35 Creatinine 1.4 mg/dL (0.6-1.0) H 07/04/17 12:35 POC Creatinine 2.8 mg/dL (0.6-1.0) H 07/02/17 18:16 Estimated GFR 39 07/04/17 12:35 Glucose 150 mg/dL (70-100) H 07/04/17 12:35 POC Glucose 154 mg/dL (70-100) H 07/04/17 12:30 Calcium 10.3 mg/dL (8.5-10.4) 07/04/17 12:35 Phosphorus 8.0 mg/dL (2.5-4.5) H 07/02/17 15:05 Magnesium 2.2 mg/dL (1.6-2.3) 07/02/17 15:05 Total Bilirubin 0.4 mg/dL (0.1-1.4) 07/04/17 04:20 AST 73 IU/L (14-46) H 07/04/17 04:20 ALT 87 IU/L (9-52) H 07/04/17 04:20 Alkaline Phosphatase 94 IU/L (38-126) 07/04/17 04:20 Troponin I 0.040 ng/mL (0.000-0.034) H 07/02/17 16:07 Total Protein 4.2 g/dL (6.3-8.2) L 07/04/17 04:20 Albumin 2.1 g/dL (3.5-5.0) L 07/04/17 04:20 Beta-Hydroxybutyrate 0.29 mmol/L (0.02-0.27) H 07/02/17 15:05 Procalcitonin 2.23 ng/mL (0.02-0.10) H 07/02/17 15:05 Urine Color BEST 07/02/17 16:30 Urine Appearance MODERATELY TURBID 07/02/17 16:30 Urine pH 5.0 (5.0-7.5) 07/02/17 16:30 Ur Specific [place] 1.020 (1.002-1.030) 07/02/17 16:30 Urine Protein 2+ (NEGATIVE) H 07/02/17 16:30 Urine Ketones NEGATIVE (NEGATIVE) 07/02/17 16:30 Urine Blood 2+ (NEGATIVE) H 07/02/17 16:30 Urine Nitrate NEGATIVE (NEGATIVE) 07/02/17 16:30 Urine Bilirubin NEGATIVE (NEGATIVE) 07/02/17 16:30 Urine Urobilinogen NEGATIVE EU (0.2-1.0) 07/02/17 16:30 Ur Leukocyte Esterase 1+ (NEGATIVE) H 07/02/17 16:30 Urine RBC 50-182 /hpf (0-3) H 07/02/17 16:30 Urine WBC 15-25 /hpf (0-3) H 07/02/17 16:30 Ur Epithelial Cells 4+ /lpf (NONE-1+) H 07/02/17 16:30 Amorphous Sediment PRESENT /hpf (NONE-1+) 07/02/17 16:30 Urine Bacteria 1+ /hpf (NONE SEEN) H 07/02/17 16:30 Hyaline Casts 5-15 /lpf (0-1) 07/02/17 16:30 Urine Mucus 1+ /lpf (NONE-1+) 07/02/17 16:30 Urine Glucose 2+ (NEGATIVE) H 07/02/17 16:30 Patient ABO/Rh O POSITIVE 07/02/17 16:21 Antibody Screen NEGATIVE 07/02/17 16:21 Crossmatch IS Only See Detail 07/02/17 16:21
[2017-07-04] MEDS: POTASSIUM Cl (KCl) 10 MEQ in NS 50 ML IV SCH ×6 (16:03→23:54)
--- NOTE | 2017-07-04 16:30 | ASMTCMCOM ---
CM Note CM Note Notes: Patient has been extubated, not following commands, fairly unresponsive, secretions. Plan at this time would be to return to [facility]. Patient has Medicaid and Psych issues and another placement might be difficult to find. Date Signed: 07/04/2017 04:29 PM Electronically Signed By:Trice Soto LCSW
[2017-07-04] MEDS: VANCOMYCIN 1.5 GM in D5W 250 ML IV SCH (19:50)
[2017-07-05] MEDS: PANTOPRAZOLE SODIUM 80 MG in NS 100 ML IV SCH ×4 (01:02→20:53)
[2017-07-05] MEDS ORDERED: POTASSIUM Cl (KCl) 50 ML IV ONE ×3 (01:46→19:58)
[2017-07-05] MEDS ORDERED: D5W 1,000 ML IV SCH ×3 (02:00→09:45)
[2017-07-05] MEDS: INSULIN LISPRO 100 UNIT/ML SC SCH ×4 (02:15→20:54)
[2017-07-05] MEDS: D50W 25 GM/50 ML SYR IVP PRN (05:41)
[2017-07-05 06:26] LABS: PLATELET COUNT 188 10^3/uL (150-400)
[2017-07-05] MEDS ORDERED: K PHOS 10 MMOL in D5W 250 ML IV ONE (08:43)
[2017-07-05] MEDS: CEFEPIME HCL 2 GM in NS 100 ML IV SCH ×2 (08:45→21:33)
--- NOTE | 2017-07-05 08:48 | SOAPPROG ---
SOAP Progress Note Assessment/Plan: Assessment: hypernatremia, stable in 159-161 range for past 6-8 hours, await 8A results continue frequent Na checks supplement K and phos for hypokalemia and hypophosphatemia probable aspiration, on Vanco and Cefipime Plan: continue free water as is for now continue frequent Na checks supp K supp Phos continue antibiotics follow renal function and UOP (still greater than 5L per day) 07/05/17 08:44 Subjective: remains encephalopathic not responding to my questions Objective: Vital Signs Temp Pulse Resp BP Pulse Ox 36.9 C 86 16 109/49 L 100 07/05/17 08:00 07/05/17 08:00 07/05/17 08:00 07/05/17 08:00 07/05/17 08:00 Microbiology 07/02/17 20:45 Blood Panel (PCR) - Final Blood Staph Coagulase Negative Laboratory Results 07/05/17 06:10 07/04/17 07/05/17 07/06/17 05:59 05:59 05:59 Intake Total 4498.9 5494 Output Total 5950 5070 375 Balance -1451.1 424 -375 PT 16.4 SEC (12.0-15.0) H 07/02/17 13:15 INR 1.30 (0.83-1.16) H 07/02/17 13:15 Physical Exam - Physical Exam General Appearance: other (remains encephalopathic) Respiratory: rales, rhonchi, wheezing, No pleural rub Cardiac/Chest: regular rate, rhythm, edema (trace edema) Abdomen: soft Skin: normal color (not arouseable) ICD10 Worksheet Patient Problems: Problems Problem Status Onset Altered mental status Acute Hyperglycemia Acute Upper GI bleed Acute Pneumonia Acute
[2017-07-05] MEDS: INSULIN GLARGINE 100 UNITS/ML SYRINGE SC SCH (08:53)
--- NOTE | 2017-07-05 10:10 | SOAPPROG ---
JENNI Progress Note Assessment/Plan: Assessment: Plan: 07/03/17 14:00 A/P 1. GI Bleed- upper. S/p EGD with large duodenal ulcer in area of gastroduodenal artery. No evidence of active bleed. Recommend to continue PPI infusion. Lesion high risk for rebleed. If rebleed consider IR consultation versus repeat EGD. 07/04/17 11:52 A/P 1. Upper GI bleed- large duodenal ulcer. No signs of ongoing bleed. Continue PPI therapy. GI will follow. 2. Hypernatremia 07/05/17 10:08 A/P 1. Duodenal ulcer- No signs of ongoing bleed. Would continue infusion till discharge. GI will follow intermittently. Please call if needed. 2. Hypernatremia Subjective: cc: Follow up GI bleed No recent BM Objective: Vital Signs Temp Pulse Resp BP Pulse Ox 36.9 C 86 16 109/49 L 100 07/05/17 08:00 07/05/17 08:00 07/05/17 08:00 07/05/17 08:00 07/05/17 08:00 Microbiology 07/02/17 20:45 Blood Panel (PCR) - Final Blood Staph Coagulase Negative Laboratory Results 07/05/17 06:10 07/05/17 08:20 07/04/17 07/05/17 07/06/17 05:59 05:59 05:59 Intake Total 4498.9 5494 Output Total 5950 5070 375 Balance -1451.1 424 -375 PT 16.4 SEC (12.0-15.0) H 07/02/17 13:15 INR 1.30 (0.83-1.16) H 07/02/17 13:15 Physical Exam - Physical Exam EENT: No scleral icterus (R), No scleral icterus (L) Respiratory: rhonchi, No rales, No wheezing Cardiac/Chest: regular rate, rhythm Abdomen: non-tender, soft, No distended, No guarding Skin: normal color, warm/dry ICD10 Worksheet Patient Problems: Problems Problem Status Onset Pneumonia Acute Altered mental status Acute Upper GI bleed Acute Hyperglycemia Acute
--- NOTE | 2017-07-05 12:55 | HOSPPROG ---
Hospitalist Progress Note Assessment/Plan: 51 yo F w dm, schizophrenia admitted w encephalopathy, metabolic acidosis, high risk UGIB, now with hypernatremia UGIB: no melena, hgb stable high risk duodenal ulcer (?GDA bleed), s/p cautery continue ppi gtt q12 hct on abx hypernatremia: had large free water deficit, Na slowly trending down on D5W renal following, appreciate assistance pneumonia: suspected aspiration, seen on ct cont vanc + cefepime ABLA: as above Type 2 DM: cont basal / bolus insulin, q6h SSI while NPO encephalopathy: multifactorial, hypernatremia likely playing a role. CT head neg for acute process REJI: pre renal and improving markedly elevated bun 2/2 UGIB metabolic acidosis: 2/2 severe anemia and hypotension improving proph: scd's dispo: cont inpt, ICU Subjective: Pt a little more alert today, able to respond to simple questions. Denies pain. No more bleeding. No fevers. Objective: Vital Signs Temp Pulse Resp BP Pulse Ox 37.0 C 87 19 109/54 L 99 07/05/17 12:00 07/05/17 12:00 07/05/17 12:00 07/05/17 12:00 07/05/17 12:00 Microbiology 07/02/17 20:45 Blood Panel (PCR) - Final Blood Staph Coagulase Negative Laboratory Results 07/05/17 06:10 07/05/17 12:02 07/04/17 07/05/17 07/06/17 05:59 05:59 05:59 Intake Total 4498.9 5494 Output Total 5950 5070 1075 Balance -1451.1 424 -1075 PT 16.4 SEC (12.0-15.0) H 07/02/17 13:15 INR 1.30 (0.83-1.16) H 07/02/17 13:15 - Physical Exam Constitutional: no apparent distress Eyes: PERRL Ears, Nose, Mouth, Throat: moist mucous membranes Cardiovascular: regular rate and rhythym Respiratory: no respiratory distress Gastrointestinal: normoactive bowel sounds, soft, non-tender abdomen Skin: warm Musculoskeletal: full muscle strength Psychiatric: encephalopathic ICD10 Worksheet Patient Problems: Problems Problem Status Onset Altered mental status Acute Hyperglycemia Acute Upper GI bleed Acute Pneumonia Acute
[2017-07-05] MEDS: D5W 1,000 ML IV SCH (13:55)
[2017-07-05] MEDS: VANCOMYCIN 1.5 GM in D5W 250 ML IV SCH (19:42)
[2017-07-06] MEDS: INSULIN LISPRO 100 UNIT/ML SC SCH ×4 (02:50→21:29)
[2017-07-06] MEDS: PANTOPRAZOLE SODIUM 80 MG in NS 100 ML IV SCH ×2 (06:25→16:42)
[2017-07-06 06:31] LABS: PLATELET COUNT 162 10^3/uL (150-400)
[2017-07-06] MEDS ORDERED: POTASSIUM Cl (KCl) 50 ML IV ONE ×2 (07:34→22:37)
[2017-07-06] MEDS: INSULIN GLARGINE 100 UNITS/ML SYRINGE SC SCH (08:02)
[2017-07-06] MEDS: CEFEPIME HCL 2 GM in NS 100 ML IV SCH ×2 (08:02→21:29)
--- NOTE | 2017-07-06 09:32 | HOSPPROG ---
Hospitalist Progress Note Assessment/Plan: 51 yo F w dm, schizophrenia admitted w encephalopathy, metabolic acidosis, high risk UGIB, now with hypernatremia UGIB: no melena, hgb stable high risk duodenal ulcer (?GDA bleed), s/p cautery continue ppi gtt likely until dc q12 hct on abx ABLA: as above. hgb stable hypotension: she has massive uop, ?DI / volume depletion. no e/o active GI bleeding, hgb stable, abd soft, no hematemesis / melena. She is well covered with vanc/cefepime so sepsis seems unlikely. avoid NS with Na issues albumin bolus q6h, note albumin 1.8 check cortisol, TSH repeat BCx's hypernatremia: had large free water deficit, Na slowly trending down on D5W, as above ?DI. she has taken lithium, which has been held since admission. renal following, appreciate assistance pneumonia: suspected aspiration, seen on ct cont cefepime, will d/c vanco Type 2 DM: cont basal / bolus insulin, q6h SSI while NPO encephalopathy: multifactorial, hypernatremia likely playing a role. CT head neg for acute process. Slowly improving. REJI: pre renal and improving markedly elevated bun 2/2 UGIB metabolic acidosis: 2/2 severe anemia and hypotension improving schizophrenia: clozaril and lithium held FEN: no oral intake for 4 days, consider TPN if not able to take po soon. swallow eval today proph: scd's dispo: cont inpt, ICU 30 minutes critical care Subjective: Pt remains somnolent, but awakens and answers basic questions. Denies pain. No N/V. No hematemesis or melena. No fevers. No abdominal pain. No oral intake for 4 day.s Objective: Vital Signs Temp Pulse Resp BP Pulse Ox 36.5 C 80 14 78/42 L 98 07/06/17 08:00 07/06/17 08:00 07/06/17 08:00 07/06/17 08:00 07/06/17 08:00 Microbiology 07/02/17 20:45 Blood Panel (PCR) - Final Blood Staph Coagulase Negative Laboratory Results 07/06/17 06:15 07/06/17 06:15 01/03/18 01/04/18 01/05/18 05:59 05:59 05:59 Intake Total 5499 4748 Output Total 5214 4265 Balance 424 1493 PT 16.4 SEC (12.0-15.0) H 07/02/17 13:15 INR 1.30 (0.83-1.16) H 07/02/17 13:15 - Physical Exam Constitutional: no apparent distress Eyes: PERRL Ears, Nose, Mouth, Throat: moist mucous membranes Cardiovascular: regular rate and rhythym Respiratory: no respiratory distress Gastrointestinal: normoactive bowel sounds, soft, non-tender abdomen Skin: warm Musculoskeletal: full muscle strength Neurologic: AAOx3 Psychiatric: encephalopathic ICD10 Worksheet Patient Problems: Problems Problem Status Onset Altered mental status Acute Hyperglycemia Acute Upper GI bleed Acute Pneumonia Acute
[2017-07-06] MEDS: ALBUMIN 25% 100 ML IV SCH ×3 (10:09→23:22)
--- NOTE | 2017-07-06 10:43 | SOAPPROG ---
SOAP Progress Note Assessment/Plan: Assessment: hypernatremia, coming down nicely continue frequent Na checks supplement K and phos for hypokalemia and hypophosphatemia as needed probable aspiration, on Vanco and Cefipime Plan: continue free water as is for now, 100cc/hr continue frequent Na checks continue antibiotics follow renal function and UOP (still greater than 5L per day) will check urine Na and Osm 07/05/17 08:44 07/06/17 10:40 Subjective: more alert today will answer my questions but clearly still confused denies pain or SOB can't tell me if she was still taking Crown prior to her hospitalization denies nausea or vomiting Objective: Vital Signs Temp Pulse Resp BP Pulse Ox 36.5 C 80 14 78/42 L 98 07/06/17 08:00 07/06/17 08:00 07/06/17 08:00 07/06/17 08:00 07/06/17 08:00 Microbiology 07/02/17 20:45 Blood Panel (PCR) - Final Blood Staph Coagulase Negative Laboratory Results 07/06/17 10:20 07/06/17 06:15 07/05/17 07/06/17 07/07/17 05:59 05:59 05:59 Intake Total 5494 4748 Output Total 5070 3255 Balance 424 1493 PT 16.4 SEC (12.0-15.0) H 07/02/17 13:15 INR 1.30 (0.83-1.16) H 07/02/17 13:15 Physical Exam - Physical Exam General Appearance: obese, other (tries to answer questions today) Respiratory: rales, rhonchi, wheezing, No stridor, No pleural rub Cardiac/Chest: regular rate, rhythm, edema, other (BP low today, Albumin has been given) Abdomen: normal bowel sounds, non-tender Skin: warm/dry Extremities: swelling (more alert today) ICD10 Worksheet Patient Problems: Problems Problem Status Onset Altered mental status Acute Hyperglycemia Acute Upper GI bleed Acute Pneumonia Acute
--- NOTE | 2017-07-06 13:56 | ASMTCMCOM ---
CM Note CM Note Notes: Spoke with patient's Aunt Connie ([phone]) who will fax me the POA documents she has for the patient. Connie is going to check with the family to see if they would like a family meeting to go over patient's medical status or if she and the POA just want to meet with the doctor. Connie will call me back. POA documents will be filed in the front of the patient's chart as soon as I receive them. Connie states the family wants patient to go to a new placement instead of back to [facility]. Discussed the process of finding new palcement for patient with Connie and explained patient might need to discharge back to [facility] and have the secondary social studies teacher there help with new placement. Patient has both medical and psych issues that require more time to secure placement. Connie will call us back with facilities they are interested in and we will send out the initial referrals. If patient is ready for d/c before we get an accepting facility, she can return to [facility] and they can continue the search from there. Spoke with Preethi at [facility] to let her know they will need to support the family with the transition. CM will follow. Date Signed: 07/06/2017 01:55 PM Electronically Signed By:Racquel Peters LCSW
--- NOTE | 2017-07-06 17:23 | PDINTPN ---
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 Improved as mental status has improved. Hypernatremia: Improving with D5 Anemia: Likely due to GI bleed from duodenal ulcer. Hgb stable, no signs of active bleeding. DKA: Resolved. BSs controlled with Lantus and SSI. Aspiration Pneumonia: Likely at time of GIB/procedures. On Cefepime. Now on RA. Afebrile, WBC down. Plan: Continue IVF per Nephrology. Will check CXR tomorrow, stop Cefepime if looks OK. 07/06/17 17:12 Subjective: Feels OK, denies pain, dyspnea. Is starting to get hungry. Objective: Vital Signs Temp Pulse Resp BP Pulse Ox 36.4 C 79 18 112/87 H 98 07/06/17 16:00 07/06/17 16:00 07/06/17 16:00 07/06/17 16:00 07/06/17 16:00 Microbiology 07/02/17 20:45 Blood Panel (PCR) - Final Blood Staph Coagulase Negative Laboratory Results 07/06/17 10:20 07/05/17 07/06/17 07/07/17 05:59 05:59 05:59 Intake Total 5494 4748 Output Total 5070 3255 1450 Balance 424 1493 -1450 PT 16.4 SEC (12.0-15.0) H 07/02/17 13:15 INR 1.30 (0.83-1.16) H 07/02/17 13:15 Physical Exam - Physical Exam General Appearance: alert, no apparent distress EENT: normal ENT inspection Neck: normal inspection Respiratory: lungs clear, normal breath sounds Cardiac/Chest: regular rate, rhythm, No edema Abdomen: normal bowel sounds, non-tender, soft Skin: normal color, warm/dry Extremities: normal inspection Neuro/Psych: alert, No oriented x 3, No motor weakness ICD10 Worksheet Patient Problems: Problems Problem Status Onset Altered mental status Acute Hyperglycemia Acute Upper GI bleed Acute Pneumonia Acute
[2017-07-07] MEDS: INSULIN LISPRO 100 UNIT/ML SC SCH ×4 (02:15→21:56)
[2017-07-07] MEDS: PANTOPRAZOLE SODIUM 80 MG in NS 100 ML IV SCH ×4 (04:33→21:57)
[2017-07-07] MEDS: ALBUMIN 25% 100 ML IV SCH ×3 (06:01→17:46)
[2017-07-07 06:10] LABS: PLATELET COUNT 154 10^3/uL (150-400)
[2017-07-07] MEDS ORDERED: POTASSIUM Cl (KCl) 20 MEQ in NS 50 ML IV ONE ×2 (06:58→14:00)
[2017-07-07] MEDS: CEFEPIME HCL 2 GM in NS 100 ML IV SCH (08:02)
[2017-07-07] MEDS: INSULIN GLARGINE 100 UNITS/ML SYRINGE SC SCH (08:04)
[2017-07-07] MEDS: D5W 1,000 ML IV SCH ×3 (08:30→19:31)
--- NOTE | 2017-07-07 08:32 | SOAPPROG ---
SOAP Progress Note Assessment/Plan: Assessment: hypernatremia, up a bit today, may be due to albumin infusion, will increase free water to 175 cc/hr and continue q6 hr Na checks continue frequent Na checks supplement K and phos for hypokalemia and hypophosphatemia as needed probable aspiration, on Vanco and Cefipime Plan: continue frequent Na checks continue antibiotics follow renal function and UOP (still about 5L per day) yesterday urine Na (60) and Osm (241) 07/05/17 08:44 07/06/17 10:40 07/07/17 08:28 Subjective: more alert today and more conversant, but answers to my questions aren't appropriate Objective: Vital Signs Temp Pulse Resp BP Pulse Ox 36.7 C 77 25 H 105/56 L 100 07/07/17 08:00 07/07/17 08:00 07/07/17 08:00 07/07/17 08:00 07/07/17 08:00 Microbiology 07/02/17 20:45 Blood Panel (PCR) - Final Blood Staph Coagulase Negative Laboratory Results 07/07/17 06:00 07/07/17 06:00 07/06/17 07/07/17 07/08/17 05:59 05:59 05:59 Intake Total 4748 4173.9 Output Total 3255 4800 450 Balance 1493 -626.1 -450 PT 16.4 SEC (12.0-15.0) H 07/02/17 13:15 INR 1.30 (0.83-1.16) H 07/02/17 13:15 Physical Exam - Physical Exam General Appearance: alert, no apparent distress Respiratory: No rhonchi, No wheezing, No pleural rub Cardiac/Chest: regular rate, rhythm, No edema, No friction rub Abdomen: normal bowel sounds, non-tender, soft Extremities: No swelling Neuro/Psych: alert, other (not answering questions appropriately) ICD10 Worksheet Patient Problems: Problems Problem Status Onset Altered mental status Acute Hyperglycemia Acute Upper GI bleed Acute Pneumonia Acute
[2017-07-07] MEDS ORDERED: POTASSIUM Cl (KCl) 50 ML IV ONE (13:06)
--- NOTE | 2017-07-07 16:45 | PDINTPN ---
[employer] Progress Note Assessment/Plan: Assessment: Respiratory Failure: Due to inability to protect airway. Improved as mental status has improved, now on RA Hypernatremia: Improved with D5, but still high, with high urine output. Anemia: Likely due to GI bleed from duodenal ulcer. Hgb stable, no signs of active bleeding. DKA: Resolved. BSs controlled with Lantus and SSI. Aspiration Pneumonia: Likely at time of GIB/procedures. On Cefepime. Now on RA. Afebrile, WBC down. Plan: Continue IVF per Nephrology. Stop Cefepime. 07/06/17 17:12 07/07/17 16:46 07/07/17 16:47 Subjective: Denies dyspnea, cough. Not taking PO. Objective: Vital Signs Temp Pulse Resp BP Pulse Ox 36.4 C 73 16 119/87 H 100 07/07/17 12:00 07/07/17 16:00 07/07/17 16:00 07/07/17 16:00 07/07/17 16:00 Microbiology 07/02/17 20:45 Blood Panel (PCR) - Final Blood Staph Coagulase Negative Laboratory Results 07/07/17 06:00 07/07/17 11:53 07/06/17 07/07/17 07/08/17 05:59 05:59 05:59 Intake Total 4748 4173.9 152 Output Total 3255 4800 2145 Balance 1493 -626.1 -1992 PT 16.4 SEC (12.0-15.0) H 07/02/17 13:15 INR 1.30 (0.83-1.16) H 07/02/17 13:15 CXR: Patchy stable mild infiltrates. Image reviewed by me. Physical Exam - Physical Exam General Appearance: alert, no apparent distress EENT: normal ENT inspection Neck: normal inspection Respiratory: lungs clear, normal breath sounds Cardiac/Chest: regular rate, rhythm, No edema Abdomen: normal bowel sounds, non-tender Skin: normal color, warm/dry Extremities: normal inspection Neuro/Psych: alert, No normal mood/affect, No oriented x 3, No motor weakness ICD10 Worksheet Patient Problems: Problems Problem Status Onset Altered mental status Acute Hyperglycemia Acute Upper GI bleed Acute Pneumonia Acute
[2017-07-07] MEDS ORDERED: INSULIN LISPRO 100 UNIT/ML SC SCH (18:00)
--- NOTE | 2017-07-07 19:12 | HOSPPROG ---
Hospitalist Progress Note Assessment/Plan: 51 yo F w dm, schizophrenia admitted w encephalopathy, metabolic acidosis, high risk UGIB, now with hypernatremia UGIB: no melena, hgb stable high risk duodenal ulcer (?GDA bleed), s/p cautery continue ppi gtt likely until dc q12 hct ABLA: as above. hgb stable hypotension: likely volume depletion with 5L uop. cortisol, tsh nl. doubt sepsis. improved with albumin infusion, will d/c after 24 hrs hypernatremia: had large free water deficit, Na slowly trending down on D5W. suspect DI with massive uop. she has taken lithium, which has been held since admission. renal following, appreciate assistance pneumonia: suspected aspiration, seen on ct cont cefepime, will d/c vanco Type 2 DM: cont basal / bolus insulin, change to achs now that she is taking po encephalopathy: multifactorial, hypernatremia likely playing a role. CT head neg for acute process. Improved. REJI: pre renal and improving markedly elevated bun 2/2 UGIB metabolic acidosis: 2/2 severe anemia and hypotension improving schizophrenia: lithium held due to DI / hypernatremia. resume clozaril FEN: no oral intake for 4 days, consider TPN if not able to take po soon. swallow eval today proph: pharm c/i with GIB, scd's dispo: cont inpt, ICU 30 minutes critical care Subjective: Pt up in chair, more interactive, but not super clear minded. Repeatedly states, "I'm better". Denies pain. Eating. Objective: Vital Signs Temp Pulse Resp BP Pulse Ox 36.4 C 73 16 105/84 H 98 07/07/17 12:00 07/07/17 18:00 07/07/17 18:00 07/07/17 18:00 07/07/17 18:00 Laboratory Results 07/07/17 06:00 07/07/17 17:45 07/06/17 07/07/17 07/08/17 05:59 05:59 05:59 Intake Total 4748 4173.9 2570.2 Output Total 3255 4800 2495 Balance 1493 -626.1 75.2 PT 16.4 SEC (12.0-15.0) H 07/02/17 13:15 INR 1.30 (0.83-1.16) H 07/02/17 13:15 - Physical Exam Constitutional: no apparent distress Eyes: PERRL Ears, Nose, Mouth, Throat: moist mucous membranes Cardiovascular: regular rate and rhythym Respiratory: no respiratory distress, clear to auscultation Gastrointestinal: normoactive bowel sounds, soft, non-tender abdomen Skin: warm Musculoskeletal: full muscle strength Psychiatric: poor insight ICD10 Worksheet Patient Problems: Problems Problem Status Onset Altered mental status Acute Hyperglycemia Acute Upper GI bleed Acute Pneumonia Acute
[2017-07-07] MEDS ORDERED: D50W 25 GM/50 ML SYR IVP PRN (19:18)
[2017-07-07] MEDS: POTASSIUM Cl (KCl) 10 MEQ in NS 50 ML IV SCH ×2 (19:24→21:48)
[2017-07-07] MEDS: FLUTICASONE/SALMETER 250/50MCG DISKUS IH SCH (21:11)
[2017-07-07] MEDS: cloZAPine 100 MG TAB PO SCH (21:50)
[2017-07-07] MEDS: ATORVASTATIN CALCIUM 10 MG TAB PO SCH (21:50)
[2017-07-07] MEDS: cloZAPine 25 MG TAB PO SCH (21:50)
[2017-07-08] MEDS ORDERED: POTASSIUM Cl (KCl) 50 ML IV ONE (02:26)
[2017-07-08 05:04] LABS: PLATELET COUNT 179 10^3/uL (150-400)
[2017-07-08] MEDS: PANTOPRAZOLE SODIUM 80 MG in NS 100 ML IV SCH ×3 (08:57→22:47)
[2017-07-08] MEDS: INSULIN GLARGINE 100 UNITS/ML SYRINGE SC SCH (09:16)
[2017-07-08] MEDS: FLUTICASONE/SALMETER 250/50MCG DISKUS IH SCH (09:16)
[2017-07-08] MEDS: cloZAPine 100 MG TAB PO SCH ×3 (09:16→21:06)
[2017-07-08] MEDS: cloZAPine 25 MG TAB PO SCH ×3 (09:16→21:06)
[2017-07-08] MEDS: LEVOTHYROXINE 112 MCG TAB PO SCH (09:23)
[2017-07-08] MEDS: INSULIN LISPRO 100 UNIT/ML SC SCH ×4 (09:24→22:52)
--- NOTE | 2017-07-08 09:37 | PDINTPN ---
Packaging Coordinator Progress Note Assessment/Plan: Assessment: Respiratory Failure: Due to inability to protect airway. Improved as mental status has improved, now on RA Hypernatremia: Na climbing despite D5. High urine output continues. ? Nephrogenic DI. Anemia: Likely due to GI bleed from duodenal ulcer. Had a large black liquid stool overnight. Hgb stable. DKA: Resolved. BSs controlled with Lantus and SSI. Aspiration Pneumonia: Likely at time of GIB/procedures. On Cefepime. Now on RA. Afebrile, WBC down. Schizophrenia: On Clozaril, [place] held. Pleasant but disoriented, spitting out food/meds Plan: Continue IVF per Nephrology. Recheck H/H this afternoon. If active bleeding, will consult IR. 07/08/17 09:47 07/08/17 09:49 Subjective: Denies discomfort. Spitting out food. Objective: Vital Signs Temp Pulse Resp BP Pulse Ox 36.6 C 66 14 105/45 L 100 07/08/17 00:00 07/08/17 06:00 07/08/17 06:00 07/08/17 06:00 07/08/17 06:00 Microbiology 07/02/17 20:45 Blood Culture - Final Blood Laboratory Results 07/08/17 04:45 07/08/17 04:45 07/07/17 07/08/17 07/09/17 05:59 05:59 05:59 Intake Total 4173.9 4920.2 Output Total 4800 5395 Balance -626.1 -474.8 PT 16.4 SEC (12.0-15.0) H 07/02/17 13:15 INR 1.30 (0.83-1.16) H 07/02/17 13:15 Physical Exam - Physical Exam General Appearance: alert, no apparent distress EENT: normal ENT inspection Neck: normal inspection Respiratory: lungs clear, normal breath sounds Cardiac/Chest: regular rate, rhythm, No edema Abdomen: normal bowel sounds, non-tender, soft Skin: normal color, warm/dry Extremities: normal inspection Neuro/Psych: alert, No oriented x 3 ICD10 Worksheet Patient Problems: Problems Problem Status Onset Altered mental status Acute Hyperglycemia Acute Upper GI bleed Acute Pneumonia Acute
--- NOTE | 2017-07-08 09:45 | HOSPPROG ---
Hospitalist Progress Note Assessment/Plan: 51 yo F w dm, schizophrenia admitted w encephalopathy, metabolic acidosis, high risk UGIB, hypernatremia UGIB: had large black watery stool last night, no melena or BRBPR. hgb stable high risk duodenal ulcer (?GDA bleed), s/p cautery continue ppi gtt likely until dc q12 hct ABLA: as above. hgb stable hypotension: likely volume depletion with 5L uop. cortisol, tsh nl. doubt sepsis. 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 had large free water deficit, Na slowly trending down on D5W. holding lithium D5W per renal service, appreciate assistance cont frequent Na levels pneumonia: suspected aspiration, seen on ct cont cefepime, will d/c vanco Type 2 DM: cont basal / bolus insulin, changed to achs now that she is taking po encephalopathy: multifactorial, hypernatremia likely playing a role. CT head neg for acute process. Improved. REJI: pre renal and improving metabolic acidosis: 2/2 severe anemia and hypotension, monitor schizophrenia: lithium held due to DI / hypernatremia. She does not have decisional capacity due to her mental illness. resume clozaril, though not cooperating well with po FEN: no oral intake for 4 days, consider TPN if not able to take po soon. swallow eval today proph: pharm c/i with GIB, scd's code status: family meeting to complete new MOLST form. MDPOA and family agree that they wish to change pt to DNR. dispo: cont inpt, ICU 30 minutes critical care Subjective: Pt awake, conversive, though not cooperative with oral intake, spits out medicine crushed in apple sauce. No fevers. Had black watery stool last night, not tarry melena. No abdominal pain, N/V. Objective: Vital Signs Temp Pulse Resp BP Pulse Ox 36.6 C 66 14 105/45 L 100 07/08/17 00:00 07/08/17 06:00 07/08/17 06:00 07/08/17 06:00 07/08/17 06:00 Microbiology 07/02/17 20:45 Blood Culture - Final Blood Laboratory Results 07/08/17 04:45 07/08/17 04:45 07/07/17 07/08/17 07/09/17 05:59 05:59 05:59 Intake Total 4173.9 4920.2 Output Total 4800 5303 Balance -626.1 -474.8 PT 16.4 SEC (12.0-15.0) H 07/02/17 13:15 INR 1.30 (0.83-1.16) H 07/02/17 13:15 - Physical Exam Constitutional: no apparent distress Eyes: PERRL Ears, Nose, Mouth, Throat: moist mucous membranes Cardiovascular: regular rate and rhythym Respiratory: no respiratory distress, clear to auscultation Gastrointestinal: normoactive bowel sounds, soft, non-tender abdomen Skin: warm Musculoskeletal: full muscle strength Psychiatric: poor insight ICD10 Worksheet Patient Problems: Problems Problem Status Onset Altered mental status Acute Hyperglycemia Acute Upper GI bleed Acute Pneumonia Acute
[2017-07-08] MEDS: D5W 1,000 ML IV SCH ×2 (12:46→19:11)
--- NOTE | 2017-07-08 12:52 | SOAPPROG ---
[employer] Progress Note Assessment/Plan: Assessment: hypernatremia, recent drop to 147, UOP remains high at over 5 liters per day, possible Li induce nephrogenic DI, will start HCTZ, will decrease free water with drop in sodium continue frequent Na checks supplement K and phos for hypokalemia and hypophosphatemia as needed probable aspiration, on Vanco and Cefipime Plan: continue frequent Na checks continue antibiotics follow renal function and UOP (still about 5L per day), will add HCTZ for possible nephrogenic DI 07/05/17 08:44 07/06/17 10:40 07/07/17 08:28 07/08/17 12:49 Subjective: feels OK family here earlier no cp sob nausea or vomiting thinking is clearer today Objective: Vital Signs Temp Pulse Resp BP Pulse Ox 36.6 C 66 14 105/45 L 100 07/08/17 00:00 07/08/17 06:00 07/08/17 06:00 07/08/17 06:00 07/08/17 06:00 Microbiology 07/02/17 20:45 Blood Culture - Final Blood Laboratory Results 07/08/17 04:45 07/08/17 12:15 07/07/17 07/08/17 07/09/17 05:59 05:59 05:59 Intake Total 4173.9 4920.2 60 Output Total 4800 5395 1200 Balance -626.1 -474.8 -1140 PT 16.4 SEC (12.0-15.0) H 07/02/17 13:15 INR 1.30 (0.83-1.16) H 07/02/17 13:15 Physical Exam - Physical Exam General Appearance: alert Respiratory: lungs clear, No wheezing, No pleural rub Cardiac/Chest: regular rate, rhythm, No edema, No friction rub Abdomen: non-tender, soft Extremities: No swelling Neuro/Psych: alert ICD10 Worksheet Patient Problems: Problems Problem Status Onset Altered mental status Acute Hyperglycemia Acute Upper GI bleed Acute Pneumonia Acute
[2017-07-08] MEDS: HYDROCHLOROTHIAZIDE 25 MG TAB PO SCH (13:03)
[2017-07-08] MEDS ORDERED: POTASSIUM Cl (KCl) 50 ML IV SCH (14:15)
[2017-07-08] MEDS ORDERED: POTASSIUM Cl (KCl) 10 MEQ in NS 50 ML IV SCH (14:30)
[2017-07-08] MEDS: POTASSIUM Cl (KCl) 10 MEQ in NS 50 ML IV SCH ×6 (14:37→20:56)
--- NOTE | 2017-07-08 17:04 | ASMTCMCOM ---
CM Note CM Note Notes: Met with many family members today to discuss redoing pt's MOST. Dr Moreno also present. Pt's brother Tristian and Aunt Carolyn are co- MDPOA. Dr Moreno indicated that pt was not decisional so family wanted to change her MOST form to no CPR, selective intervention with no intubation and no artificial nutrition. Dr Moreno explained each item on the MOST so family and MDPOAs could make an informed decision New form signed, placed in chart and original plus copies given to family. Date Signed: 07/08/2017 05:03 PM Electronically Signed By:Shauna Fraser LCSW
[2017-07-08] MEDS ORDERED: OLANZapine 10 MG/2 ML VIAL IM PRN (18:34)
[2017-07-08] MEDS: ATORVASTATIN CALCIUM 10 MG TAB PO SCH (21:06)
[2017-07-09] MEDS: D5W 1,000 ML IV SCH ×2 (00:49→08:43)
[2017-07-09] MEDS ORDERED: POTASSIUM Cl (KCl) 50 ML IV ONE (00:54)
[2017-07-09] MEDS: POTASSIUM Cl (KCl) 10 MEQ in NS 50 ML IV SCH (01:30)
[2017-07-09] MEDS: LEVOTHYROXINE 112 MCG TAB PO SCH (06:12)
[2017-07-09 06:15] LABS: PLATELET COUNT 210 10^3/uL (150-400)
[2017-07-09] MEDS: cloZAPine 100 MG TAB PO SCH ×2 (08:21→23:14)
[2017-07-09] MEDS: HYDROCHLOROTHIAZIDE 25 MG TAB PO SCH (08:21)
[2017-07-09] MEDS: INSULIN GLARGINE 100 UNITS/ML SYRINGE SC SCH (08:22)
[2017-07-09] MEDS: cloZAPine 25 MG TAB PO SCH ×2 (08:22→23:13)
[2017-07-09] MEDS: PANTOPRAZOLE SODIUM 80 MG in NS 100 ML IV SCH (08:24)
[2017-07-09] MEDS: INSULIN LISPRO 100 UNIT/ML SC SCH ×3 (08:48→20:26)
--- NOTE | 2017-07-09 09:50 | HOSPPROG ---
Hospitalist Progress Note Assessment/Plan: 51 yo F w dm, schizophrenia admitted w encephalopathy, metabolic acidosis, high risk UGIB, hospitalization prolonged due to hypernatremia in setting of DI UGIB: no melena or BRBPR. hgb stable high risk duodenal ulcer (?GDA bleed), s/p cautery change to BID IV PPI for now, then po when reliably taking po discussed with GI daily h&h ABLA: as above. 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 had large free water deficit. Na finally normalized on high dose D5W in setting massive UOP ~5 L / day holding lithium uptitrating hctz per renal, appreciate assistance cont frequent Na levels today due to relatively rapid drop this am hypotension: likely volume depletion with 5L uop. cortisol, tsh nl. doubt sepsis. has responded to prn albumin pneumonia: suspected aspiration, seen on ct. s/p course of cefepime. Type 2 DM: cont basal / bolus insulin, changed to achs now that she is taking po encephalopathy: multifactorial, hypernatremia likely playing a role. Seems back to baseline now. CT head neg for acute process. REJI: pre renal and improving metabolic acidosis: 2/2 severe anemia and hypotension, monitor schizophrenia: lithium held due to DI / hypernatremia. She does not have decisional capacity due to her mental illness. cont clozaril, more cooperative today with oral meds FEN: taking po better, speech following with diet modification proph: pharm c/i with GIB, scd's code status: family meeting yesterday, new MOLST form completed, now DNR dispo: cont inpt, transfer to med surg today Subjective: Pt "doing better". Up in chair, eating better. Taking her meds since last night. No fevers. No melena or BRBPR. Objective: Vital Signs Temp Pulse Resp BP Pulse Ox 36.4 C 97 17 102/63 100 07/09/17 08:00 07/09/17 08:00 07/09/17 08:00 07/09/17 08:21 07/09/17 08:00 Microbiology 07/08/17 17:05 Respiratory Panel (PCR) - Final Nasal, Sinus - Swab No Organism Detected 07/02/17 20:45 Blood Culture - Final Blood Laboratory Results 07/09/17 06:00 07/09/17 06:00 07/08/17 07/09/17 07/10/17 05:59 05:59 05:59 Intake Total 4920.2 5960 320 Output Total 5395 5050 Balance -474.8 910 320 PT 16.4 SEC (12.0-15.0) H 07/02/17 13:15 INR 1.30 (0.83-1.16) H 07/02/17 13:15 - Physical Exam Constitutional: no apparent distress Eyes: PERRL Ears, Nose, Mouth, Throat: moist mucous membranes Cardiovascular: regular rate and rhythym, no murmur, rub, or gallop Respiratory: no respiratory distress, clear to auscultation Gastrointestinal: normoactive bowel sounds, soft, non-tender abdomen Skin: warm Musculoskeletal: generalized weakness ICD10 Worksheet Patient Problems: Problems Problem Status Onset Altered mental status Acute Hyperglycemia Acute Upper GI bleed Acute Pneumonia Acute
--- NOTE | 2017-07-09 10:09 | SOAPPROG ---
[employer] Progress Note Assessment/Plan: Assessment: hypernatremia, recent drop to 147, UOP remains high at over 5 liters per day, possible Li induce nephrogenic DI, will start HCTZ, will decrease free water with drop in sodium continue frequent Na checks supplement K and phos for hypokalemia and hypophosphatemia as needed probable aspiration, on Vanco and Cefipime Plan: continue frequent Na checks continue antibiotics follow renal function and UOP (still about 5L per day), will add HCTZ for possible nephrogenic DI. Still with 5L out yesterday, will increase to twice daily Patient confirmed for me that she was taking her [place] prior to admission, would recommend an alternative agent for her bipolar disease 07/05/17 08:44 07/06/17 10:40 07/07/17 08:28 07/08/17 12:49 07/09/17 10:05 Subjective: up to chair denies pain nausea sob or anorexia no cp or abd pain slept OK last night says her energy is OK Objective: Vital Signs Temp Pulse Resp BP Pulse Ox 36.4 C 97 17 102/63 100 07/09/17 08:00 07/09/17 08:00 07/09/17 08:00 07/09/17 08:21 07/09/17 08:00 Microbiology 07/08/17 17:05 Respiratory Panel (PCR) - Final Nasal, Sinus - Swab No Organism Detected 07/02/17 20:45 Blood Culture - Final Blood Laboratory Results 07/09/17 06:00 07/09/17 06:00 07/08/17 07/09/17 07/10/17 05:59 05:59 05:59 Intake Total 4920.2 5960 320 Output Total 5395 5050 Balance -474.8 910 320 PT 16.4 SEC (12.0-15.0) H 07/02/17 13:15 INR 1.30 (0.83-1.16) H 07/02/17 13:15 Physical Exam - Physical Exam General Appearance: alert, obese Respiratory: rhonchi, No wheezing, No pleural rub Cardiac/Chest: regular rate, rhythm, No edema, No friction rub Abdomen: normal bowel sounds, non-tender, soft Extremities: No swelling Neuro/Psych: alert ICD10 Worksheet Patient Problems: Problems Problem Status Onset Altered mental status Acute Hyperglycemia Acute Upper GI bleed Acute Pneumonia Acute
[2017-07-09] MEDS: PANTOPRAZOLE SODIUM 40 MG VIAL IVP SCH (12:14)
--- NOTE | 2017-07-09 12:14 | PDINTPN ---
[employer] Progress Note Assessment/Plan: Assessment: Respiratory Failure: Due to inability to protect airway. Improved as mental status has improved, now on RA Hypernatremia: Na finally down this AM, on D5, HCTZ. High urine output continues. ? Nephrogenic DI. Anemia: Likely due to GI bleed from duodenal ulcer. Had a large black liquid stool 1/6 AM. Hgb stable. DKA: Resolved. BSs controlled with Lantus and SSI. Aspiration Pneumonia: Likely at time of GIB/procedures. Treated with a few days of Cefepime. Now on RA. Afebrile, WBC down. Schizophrenia: On Clozaril, [place] held. Pleasant, more cooperative Plan: Continue IVF, HCTZ per Nephrology. If repeat Na is OK, can probably decrease IVF and transfer out of ICU. Follow H/H. If active bleeding, will consult IR. 07/09/17 12:12 Subjective: Feels OK, was more alert and cooperative this morning, now somnolent. Objective: Vital Signs Temp Pulse Resp BP Pulse Ox 37 C 84 17 100/67 99 07/09/17 11:50 07/09/17 11:50 07/09/17 11:50 07/09/17 11:50 07/09/17 11:50 Microbiology 07/08/17 17:05 Respiratory Panel (PCR) - Final Nasal, Sinus - Swab No Organism Detected 07/02/17 20:45 Blood Culture - Final Blood Laboratory Results 07/09/17 06:00 07/08/17 07/09/17 07/10/17 05:59 05:59 05:59 Intake Total 4920.2 5960 320 Output Total 5395 5050 Balance -474.8 910 320 PT 16.4 SEC (12.0-15.0) H 07/02/17 13:15 INR 1.30 (0.83-1.16) H 07/02/17 13:15 Physical Exam - Physical Exam General Appearance: alert, no apparent distress EENT: normal ENT inspection Neck: normal inspection Respiratory: lungs clear, normal breath sounds Cardiac/Chest: regular rate, rhythm, No edema Abdomen: normal bowel sounds, non-tender, soft Skin: normal color, warm/dry Extremities: normal inspection Neuro/Psych: No alert (somnolent but arousable), No normal mood/affect (flat affect), No oriented x 3 ICD10 Worksheet Patient Problems: Problems Problem Status Onset Altered mental status Acute Hyperglycemia Acute Upper GI bleed Acute Pneumonia Acute
[2017-07-09] MEDS: D50W 25 GM/50 ML SYR IVP PRN (18:42)
[2017-07-09] MEDS ORDERED: POTASSIUM CL 10 MEQ TAB PO ONE (20:21)
[2017-07-09] MEDS ORDERED: POTASSIUM Cl (KCl) 20 MEQ/50 ML BAG IV ONE (23:05)
[2017-07-09] MEDS: ATORVASTATIN CALCIUM 10 MG TAB PO SCH (23:14)
[2017-07-10] MEDS: PANTOPRAZOLE SODIUM 40 MG VIAL IVP SCH ×2 (00:05→09:11)
[2017-07-10] MEDS: HYDROCHLOROTHIAZIDE 25 MG TAB PO SCH ×3 (00:05→20:15)
[2017-07-10] MEDS: cloZAPine 25 MG TAB PO SCH ×2 (09:11→20:16)
[2017-07-10] MEDS: cloZAPine 100 MG TAB PO SCH ×2 (09:11→20:15)
--- NOTE | 2017-07-10 09:50 | SOAPPROG ---
SOAP Progress Note Assessment/Plan: Assessment/Plan: Hypernatremia: now markedly improved, pt still with large UOP, likely has some nephrogenic DI, possibly from lithium. She is off D5W since yesterday afternoon and sodium remains stable in low 140s, she is drinking plenty of free water on her own. - Will change sodium checks to q12h. - Will continue HCTZ BID. - Ideally should use an alternative agent instead of lithium in future. REJI: resolved, Cr back to baseline at 0.8, will continue to monitor. Hypokalemia: improved, K 4.2 today, will continue to monitor daily and replace as needed. Anemia: pt s/p GI bleed, Hgb stable, will continue to monitor. Subjective: No acute events overnight. Pt states that she is feeling "lethargic" and that she is not able to eat too well because she feels full easily. Objective: Vital Signs Temp Pulse Resp BP Pulse Ox 36.6 C 84 16 105/60 98 07/09/17 20:00 07/10/17 03:59 07/10/17 03:59 07/10/17 09:10 07/10/17 03:59 Microbiology 07/02/17 20:45 Blood Culture - Final Blood Staphylococcus Sp Coag Neg Blood Panel (PCR) - Final Staph Coagulase Negative Laboratory Results 07/10/17 05:15 07/10/17 05:15 07/09/17 07/10/17 07/11/17 05:59 05:59 05:59 Intake Total 5960 2010 Output Total 5050 3100 Balance 910 -1089 PT 16.4 SEC (12.0-15.0) H 07/02/17 13:15 INR 1.30 (0.83-1.16) H 07/02/17 13:15 General: alert and oriented, no acute distress Eyes: EOMI, PERRL OP: Clear CV: RRR Resp: nonlabored respirations on RA Abd: Soft, NT/ND Ext: no edema BLE Neuro: CN II-XII grossly intact, no asterixis Psych: cooperative ICD10 Worksheet Patient Problems: Problems Problem Status Onset Altered mental status Acute Hyperglycemia Acute Upper GI bleed Acute Pneumonia Acute
[2017-07-10] MEDS ORDERED: INSULIN GLARGINE 100 UNITS/ML SYRINGE SC SCH (10:35)
[2017-07-10] MEDS: INSULIN GLARGINE 100 UNITS/ML SYRINGE SC SCH ×2 (13:35→15:03)
--- NOTE | 2017-07-10 13:36 | HOSPPROG ---
Hospitalist Progress Note Assessment/Plan: 51 yo F w dm, schizophrenia admitted w encephalopathy, metabolic acidosis, high risk UGIB, hospitalization prolonged due to hypernatremia in setting of DI UGIB: no melena or BRBPR. hgb stable high risk duodenal ulcer (?GDA bleed), s/p cautery change to BID PO Protonix daily h&h ABLA: as above. 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 had large free water deficit. Na finally normalized on high dose D5W in setting massive UOP ~5 L / day holding lithium uptitrating hctz per renal, appreciate assistance cont frequent Na levels today due to relatively rapid drop this am hypotension: likely volume depletion with 5L uop. cortisol, tsh nl. doubt sepsis. has responded to prn albumin pneumonia: suspected aspiration, seen on ct. s/p course of cefepime. Type 2 DM: cont basal / bolus insulin -decrease lantus to [place] daily given hypoglycemia 07/09/17 encephalopathy: multifactorial, hypernatremia likely playing a role. Seems back to baseline now. CT head neg for acute process. REJI: pre renal and improving metabolic acidosis: 2/2 severe anemia and hypotension, monitor schizophrenia: lithium held due to DI / hypernatremia. She does not have decisional capacity due to her mental illness. cont clozaril, more cooperative today with oral meds FEN: taking po better, speech following with diet modification proph: pharm c/i with GIB, scd's code status: family meeting yesterday, new MOST form completed, now DNR dispo: cont inpt med surg status. plan for dc back to [facility] once h/h and na are stable anticipate dc 1-2 days . Subjective: denies abd pain. tolerating diet. no acute complaints Objective: Vital Signs Temp Pulse Resp BP Pulse Ox 36.9 C 91 16 93/49 L 96 07/10/17 11:36 07/10/17 11:36 07/10/17 11:36 07/10/17 11:36 07/10/17 11:36 Microbiology 07/02/17 20:45 Blood Culture - Final Blood Staphylococcus Sp Coag Neg Blood Panel (PCR) - Final Staph Coagulase Negative Laboratory Results 07/10/17 05:15 07/10/17 05:15 07/09/17 07/10/17 07/11/17 05:59 05:59 05:59 Intake Total 5960 2010 Output Total 5053 3100 Balance 910 -1089 PT 16.4 SEC (12.0-15.0) H 07/02/17 13:15 INR 1.30 (0.83-1.16) H 07/02/17 13:15 - Physical Exam Constitutional: chronically ill appearing, obese Cardiovascular: regular rate and rhythym, no murmur, rub, or gallop Respiratory: no respiratory distress, no rales or rhonchi, clear to auscultation Gastrointestinal: normoactive bowel sounds, soft, non-tender abdomen, no palpable masses, No rebound, No distension ICD10 Worksheet Patient Problems: Problems Problem Status Onset Pneumonia Acute Altered mental status Acute Upper GI bleed Acute Hyperglycemia Acute
[2017-07-10] MEDS: INSULIN LISPRO 100 UNIT/ML SC SCH ×5 (15:01→20:16)
[2017-07-10] MEDS: LEVOTHYROXINE 112 MCG TAB PO SCH (15:02)
[2017-07-10] MEDS: PANTOPRAZOLE SODIUM 40 MG TAB PO SCH (20:16)
[2017-07-10] MEDS: ATORVASTATIN CALCIUM 10 MG TAB PO SCH (20:16)
[2017-07-10] MEDS ORDERED: POTASSIUM CL 20 MEQ/15 ML UDCUP PO ONE (20:45)
[2017-07-11] MEDS: LEVOTHYROXINE 112 MCG TAB PO SCH (05:34)
[2017-07-11] MEDS: INSULIN LISPRO 100 UNIT/ML SC SCH ×4 (08:58→21:24)
[2017-07-11] MEDS: cloZAPine 25 MG TAB PO SCH ×2 (09:05→20:35)
[2017-07-11] MEDS: cloZAPine 100 MG TAB PO SCH ×2 (09:05→20:35)
[2017-07-11] MEDS: PANTOPRAZOLE SODIUM 40 MG TAB PO SCH ×2 (09:05→20:36)
[2017-07-11] MEDS: HYDROCHLOROTHIAZIDE 25 MG TAB PO SCH ×2 (09:06→20:35)
--- NOTE | 2017-07-11 10:04 | SOAPPROG ---
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 She is off D5W since Monday afternoon and sodium remains stable in low 140s, she is drinking plenty of free water on her own. - Would continue HCTZ BID on discharge. - Would recommend she have sodium rechecked later this week if discharged. - Pt to f/u with her PCP, is welcome to nephrology clinic at any time for further management if warranted. - Ideally should use an alternative agent instead of lithium in future. REJI: resolved, Cr back to baseline at 0.8, will continue to monitor. Hypokalemia: resolved, K 4.4 today. Anemia: pt s/p GI bleed, Hgb stable. Thank you for the interesting consult. Nephrology will sign off at this time, please call if you have any additional questions or concerns. Subjective: No acute events overnight. Pt states she is drinking lots of fluids. She has no new complaints today. Objective: Vital Signs Temp Pulse Resp BP Pulse Ox 36.9 C 90 14 104/61 97 07/11/17 07:47 07/11/17 07:47 07/11/17 07:47 07/11/17 09:06 07/11/17 07:47 Microbiology 07/02/17 20:45 Blood Culture - Final Blood Staphylococcus Sp Coag Neg Blood Panel (PCR) - Final Staph Coagulase Negative Laboratory Results 07/10/17 05:15 07/11/17 05:40 07/10/17 07/11/17 07/12/17 05:59 05:59 05:59 Intake Total 20100 Output Total 0 3300 150 Balance -1089 -1620 -150 PT 16.4 SEC (12.0-15.0) H 07/02/17 13:15 INR 1.30 (0.83-1.16) H 07/02/17 13:15 General: alert and oriented, no acute distress Eyes: EOMI, PERRL OP: Clear CV: RRR Resp: nonlabored respirations Abd: Soft, NT/ND Ext: no edema Psych: cooperative Neuro: CN II-XII Grossly intact ICD10 Worksheet Patient Problems: Problems Problem Status Onset Altered mental status Acute Hyperglycemia Acute Upper GI bleed Acute Pneumonia Acute
[2017-07-11] MEDS: INSULIN GLARGINE 100 UNITS/ML SYRINGE SC SCH (10:15)
--- NOTE | 2017-07-11 14:23 | ASMTCMCOM ---
CM Note CM Note Notes: Wm Parra is working on getting patient transferred to [facility] but that won't happen until after she returns to [facility]. Wm Parra sent a referral today. Patient may discharge Monday. Date Signed: 07/11/2017 02:23 PM Electronically Signed By:Trice Soto LCSW
--- NOTE | 2017-07-11 14:49 | HOSPPROG ---
Hospitalist Progress Note Assessment/Plan: 51 yo F w dm, schizophrenia admitted w encephalopathy, metabolic acidosis, high risk UGIB, hospitalization prolonged due to hypernatremia in setting of DI UGIB: now with recurrent melena. hgb stable high risk duodenal ulcer (?GDA bleed), s/p cautery change to BID PO Protonix daily h&h ABLA: as above. 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 had large free water deficit. Na finally normalized on high dose D5W in setting massive UOP ~5 L / day holding lithium uptitrating hctz per renal, appreciate assistance cont frequent Na levels today due to relatively rapid drop this am hypotension: likely volume depletion with 5L uop. cortisol, tsh nl. doubt sepsis. has responded to prn albumin pneumonia: suspected aspiration, seen on ct. s/p course of cefepime. Type 2 DM: cont basal / bolus insulin -decrease lantus to 20untis daily given hypoglycemia 07/09/17 encephalopathy: multifactorial, hypernatremia likely playing a role. Seems back to baseline now. CT head neg for acute process. REJI: pre renal and improving metabolic acidosis: 2/2 severe anemia and hypotension, monitor schizophrenia: lithium held due to DI / hypernatremia. She does not have decisional capacity due to her mental illness. cont clozaril, more cooperative today with oral meds FEN: taking po better, speech following with diet modification proph: pharm c/i with GIB, scd's code status: family meeting yesterday, new MOST form completed, now DNR dispo: cont inpt med surg status. plan for dc back to [facility] once h/h and na are stable anticipate dc 1-2 days . Subjective: RN reports large bout of Melena yesterday and continues melena today. Denies abd pain. tolerating diet. Objective: Vital Signs Temp Pulse Resp BP Pulse Ox 36.9 C 90 14 104/61 97 07/11/17 07:47 07/11/17 07:47 07/11/17 07:47 07/11/17 09:06 07/11/17 07:47 Microbiology 07/06/17 09:48 Blood Culture - Final Blood 07/02/17 20:45 Blood Culture - Final Blood Staphylococcus Sp Coag Neg Blood Panel (PCR) - Final Staph Coagulase Negative Laboratory Results 07/11/17 14:05 07/10/17 07/11/17 07/12/17 05:59 05:59 05:59 Intake Total 2010 1679 Output Total 0 3300 150 Balance -1089 -1620 -150 PT 16.4 SEC (12.0-15.0) H 07/02/17 13:15 INR 1.30 (0.83-1.16) H 07/02/17 13:15 - Physical Exam Constitutional: no apparent distress, appears nourished, not in pain Ears, Nose, Mouth, Throat: moist mucous membranes, hearing normal, ears appear normal, no oral mucosal ulcers Cardiovascular: regular rate and rhythym, no murmur, rub, or gallop Gastrointestinal: normoactive bowel sounds, soft, non-tender abdomen, no palpable masses, No guarding, No rebound ICD10 Worksheet Patient Problems: Problems Problem Status Onset Pneumonia Acute Altered mental status Acute Upper GI bleed Acute Hyperglycemia Acute
[2017-07-11] MEDS: ATORVASTATIN CALCIUM 10 MG TAB PO SCH (20:35)
[2017-07-11 22:54] VITALS: RESP 18
[2017-07-12] MEDS: LEVOTHYROXINE 112 MCG TAB PO SCH (04:44)
[2017-07-12] MEDS: INSULIN LISPRO 100 UNIT/ML SC SCH (07:48)
[2017-07-12 07:56] VITALS: BP 105/55; PULSE 98; TEMP 97.5; O2SAT 90
--- NOTE | 2017-07-12 08:56 | PDIAF ---
- Diagnosis Diagnosis: Bleeding Ulcer Code Status: Do Not Resuscitate - Medication Management Discharge Medications: Medications to Continue on Transfer Albuterol [Proventil Inhaler HFA (*)] 2 puffs IH Q4 PRN 06/09/17 [Last Taken Unknown] Albuterol [Proventil Neb] 3 ml IH Q4 PRN 06/09/17 [Last Taken Unknown] Aspirin [Aspirin 81mg (*)] 81 mg PO DAILY 06/09/17 [Last Taken 07/02/17 08:00] Atorvastatin Calcium [Lipitor 10 mg (*)] 10 mg PO HS 06/09/17 [Last Taken 20:00] Fluticasone/Salmeter 250/50Mcg [Advair 250/50 (*)] 1 puffs IH BID 06/09/17 [ Last Taken 07/02/17 08:00] Linagliptin [Tradjenta] 5 mg PO DAILY 06/09/17 [Last Taken 07/02/17 08:00] Polyethylene Glycol 3350 [Miralax 17 gm (*)] 17 gm PO DAILY 06/09/17 [Last Taken 07/02/17 08:00] cloZAPine [Clozaril (*)] 75 mg PO BID 06/09/17 [Last Taken 07/02/17 08:00] cloZAPine [Clozaril (*)] 100 mg PO BID 06/09/17 [Last Taken 07/02/17 08:00] [place] Carbonate [[place] Carbonate Tab 300 mg (*)] 300 mg PO BID #30 tab 06/11 [Last Taken 07/02/17 08:00] Acetaminophen [Tylenol 325mg (*)] 325 - 650 mg PO Q6HRS PRN 07/02/17 [Last Taken 06/23/17 650 mg] Levothyroxine [Synthroid 112 mcg (*)] 112 mcg PO DAILY06 07/02/17 [Last Taken 06:00] Hydrochlorothiazide [HCTZ (*)] 25 mg PO BID tab 07/12/17 [Last Taken Unknown] Insulin Glargine [Lantus 100 UNITS/ML (*)] 20 units SC DAILY ml 07/12/17 [Last Taken Unknown] Insulin Lispro [humALOG LISPRO 100 units/ml (*)] 0 unit SC ACHS unit 07/12/17 [ Last Taken Unknown] Pantoprazole Sodium [Protonix 40mg (*)] 40 mg PO BID #0 tab 07/12/17 [Last Taken Unknown] Discharge Medications: Refer to the Discharge Home Medication list for PRN reason. - Orders Diet Texture: Dysphagia 2 - Mechanically Altered - Chopped, Ground, Thin Liquids - Labs/Radiology BMP Date: 07/17/17 CBC w/diff Date: 07/17/17 - Follow Up Care Current Providers and Referrals: Patient,NotPresent [Primary Care Provider] - As per Instructions
[2017-07-12] MEDS: cloZAPine 25 MG TAB PO SCH (09:00)
[2017-07-12] MEDS: cloZAPine 100 MG TAB PO SCH (09:00)
[2017-07-12] MEDS: PANTOPRAZOLE SODIUM 40 MG TAB PO SCH (09:00)
[2017-07-12] MEDS: HYDROCHLOROTHIAZIDE 25 MG TAB PO SCH (09:00)
[2017-07-12] MEDS: INSULIN GLARGINE 100 UNITS/ML SYRINGE SC SCH (09:01)
--- NOTE | 2017-07-12 09:03 | PDIAF ---
- Diagnosis Diagnosis: Bleeding Ulcer Code Status: Do Not Resuscitate - Medication Management Discharge Medications: Medications to Continue on Transfer Albuterol [Proventil Inhaler HFA (*)] 2 puffs IH Q4 PRN 06/09/17 [Last Taken Unknown] Albuterol [Proventil Neb] 3 ml IH Q4 PRN 06/09/17 [Last Taken Unknown] Aspirin [Aspirin 81mg (*)] 81 mg PO DAILY 06/09/17 [Last Taken 07/02/17 08:00] Atorvastatin Calcium [Lipitor 10 mg (*)] 10 mg PO HS 06/09/17 [Last Taken 20:00] Fluticasone/Salmeter 250/50Mcg [Advair 250/50 (*)] 1 puffs IH BID 06/09/17 [ Last Taken 07/02/17 08:00] Linagliptin [Tradjenta] 5 mg PO DAILY 06/09/17 [Last Taken 07/02/17 08:00] Polyethylene Glycol 3350 [Miralax 17 gm (*)] 17 gm PO DAILY 06/09/17 [Last Taken 07/02/17 08:00] cloZAPine [Clozaril (*)] 75 mg PO BID 06/09/17 [Last Taken 07/02/17 08:00] cloZAPine [Clozaril (*)] 100 mg PO BID 06/09/17 [Last Taken 07/02/17 08:00] Acetaminophen [Tylenol 325mg (*)] 325 - 650 mg PO Q6HRS PRN 07/02/17 [Last Taken 06/23/17 650 mg] Levothyroxine [Synthroid 112 mcg (*)] 112 mcg PO DAILY06 07/02/17 [Last Taken 06:00] Hydrochlorothiazide [HCTZ (*)] 25 mg PO BID tab 07/12/17 [Last Taken Unknown] Insulin Glargine [Lantus 100 UNITS/ML (*)] 20 units SC DAILY ml 07/12/17 [Last Taken Unknown] Insulin Lispro [humALOG LISPRO 100 units/ml (*)] 0 unit SC ACHS unit 07/12/17 [ Last Taken Unknown] Pantoprazole Sodium [Protonix 40mg (*)] 40 mg PO BID #0 tab 07/12/17 [Last Taken Unknown] Discharge Medications: Refer to the Discharge Home Medication list for PRN reason. - Orders Services needed: Registered Nurse, Physical Therapy, Occupational Therapy Diet Recommendation: ADA 1800 consistent carb Diet Texture: Dysphagia 2 - Mechanically Altered - Chopped, Ground, Thin Liquids Additional: check glucose ac/hs - Labs/Radiology BMP Date: 07/17/17 CBC w/diff Date: 07/17/17 - Follow Up Care Current Providers and Referrals: Patient,NotPresent [Primary Care Provider] - As per Instructions
--- NOTE | 2017-07-12 09:24 | GDS ---
[f rep st] DISCHARGE SUMMARY DISCHARGE DIAGNOSES: 1. Upper gastrointestinal bleed due to high risk duodenal ulcer status post cautery. 2. Acute blood loss anemia secondary to above. 3. 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 4. Resolved hypotension. 5. Suspected aspiration pneumonia. 6. Resolved diabetic ketoacidosis with insulin dependent diabetes mellitus. 7. Acute encephalopathy. 8. Improving acute kidney injury. 9. Metabolic acidosis. 10. Schizophrenia. CONSULTANTS: 1. Dr. Lj Meek, [facility]. 2. Dr. Gan, Critical Care. 3. Dr. Arboleda, [facility]. HOSPITAL COURSE: 1. GI bleed: Patient presented to the hospital obtunded and in shock. She was intubated and transf erred to the intensive care unit. Upper endoscopy was done which revealed a high risk duodenal ulcer , was possibly arterial. The lesion was cauterized. She was treated with high-dose IV pantoprazole. The patient has not had any evidence of rebleeding while in the hospital. On day of discharge, her hemoglobin and hematocrit are stable. 2. Hyponatremia: The patient has been on chronic lithium therapy. She did have some hypernatremia. She has been followed by Renal who has recommended holding her lithium. She has been placed on twi ce daily hydrochlorothiazide. After fluid resuscitation and her current treatment, her sodium has be en stable. It was recommended that the patient should ideally use an alternative agent from lithium in the future. 3. Type 2 insulin-dependent diabetes mellitus: Patient presented to the hospital in DKA. She was t reated with IV insulin. Her blood sugars have stabilized over the past few days. Her usual home dos e of glargine was decreased to 20 units per day. She has been getting correctional insulin which joe uld be continued. She will need close monitoring of her blood sugars. PHYSICAL EXAMINATION: VITAL SIGNS: On day of discharge, blood pressure 105/55, pulse 98, respirator y rate 18, O2 saturation 90% on room air. Temperature afebrile. GENERAL: No acute distress. ABDOM EN: Soft, nontender, nondistended. No guarding or rebound tenderness. Normoactive bowel sounds. PERTINENT LABS AND STUDIES: Upper endoscopy done by Dr. Meek on 07/02/2017, refer to report. DISCHARGE MEDICATIONS: Please refer to discharge medication reconciliation in [facility] for details. Below is a preliminary list. New medications on hospital discharge: Pantoprazole 40 mg p.o. twice daily for [address] that. Home medications that have been held: [place]. New medications on hospital discharge: Hydrochlorothiazide 25 mg p.o. twice daily. Other home medications that have been held: Actos 45 mg daily, Aldactone 25 mg daily. DISCHARGE INSTRUCTIONS: The patient will be transferred back to her snf facility. She s hould have a metabolic panel done later this week or on Monday to ensure her serum sodium is stable. She should be monitored for signs and symptoms of GI bleeding. She should continue her Protonix 40 mg twice daily for 30 days. She should follow up GI of the [facility]. She will also need close monito ring of her blood sugars. Greater than 30 minutes was spent on the discharge of this patient. /[id number]/MODL
[2017-07-12] MEDS ORDERED: POTASSIUM CL 10 MEQ TAB PO ONE (10:28)
[2017-07-12] MEDS ORDERED: INSULIN LISPRO 100 UNIT/ML SC SCH (11:30)
--- NOTE | 2017-07-12 16:52 | ASDISCHSUM ---
Discharge Information Plan Status:SNF Medically Cleared to Leave: Discharge Date:07/12/2017 12:08 PM CM D/C Disposition:Jail Facility ADT D/C Disposition:Jail Facility Projected Discharge Date:07/12/2017 02:00 PM Transportation at D/C:ALS/BLS Discharge Delay Reason: Follow-Up Date:07/12/2017 02:00 PM Discharge Slot: Final Diagnosis:Fall: L Hip fx, L Shoulder dislocation Placement Information Referral Type:*Custodial/SNF Referral ID:[id number] Provider Name:Wm Parra/[facility] [employer] Address 1:[address] Phone Number: Address 2: Fax Number: [facility] Selection Factors: State:[place] Patient Contact Information Contact Name:LENNY Relationship: Address: Work Phone: City: [facility] Phone: [facility] Code: Email: Financial Information Financial Class: Primary Plan Desc:[employer] [place] Primary Plan Number:[id number] Secondary Plan Desc: Secondary Plan Number: Assessment Information [facility] CM Progress Note CM Note CM Note Notes: Patient presented to the ED via EMS from [facility] where she has been a resident for the past month. Patient was brought in for AMS (pt unresponsive on arrival to ED) and hyperglycemia. Patient was breathing but ultimately required intubation. Patient's bloodwork & evidence of blood in stool indicates a GI bleed; pt to be seen by GI in ICU and to receive emergent EGD. Spoke with patient's Aunt Carolyn Guerra ([phone]) who is patient's MDPOA lives in [place] and contacted other family members. Carolyn and patient's mother Elizabeth, brother Johnnie, [id number] Jody, brother Albaro, and nephew Hayden arrived to the ED. After discussion with hospitalist and ED MD, the family collectively decided that if patient's heart were to stop they do not want patient resuscitated. Otherwise, they would like all other efforts made. This was relayed and confirmed by ED MD Dr Sosa Emery and she will pass along to hospitalist and place directive in patient's chart. Carolyn had expressed concerns about patient's care at [facility] and says she has filed a report and contacted Home Furnishings Sales Representative and even contacted corporate, but has not received much response or action in terms of improving patient care. This CM provided empathetic listening and also provided her with [facility] contact information and encouraged her to contact them. Offered to call the disposal worker to provide spiritual and emotional support and assist in prayers and family would like additional support. Merchandising Execution Manager paged. Family assisted to ICU waiting area and shown where the chapel is located. TELECOMMUNICATIONS ENGINEER aware of where family can be found. Date Signed: 07/02/2017 06:24 PM Electronically Signed By:Erin Zelaya RN LACE LACE Acuity / Level of Care Answers: Was the patient admitted to hospital via the emergency department? Yes: Comorbidities - select Answers: Diabetes without all that apply complications Chronic pulmonary disease Emergency dept visits in Answers: 2 last 6 months Score: 8 Date Signed: 07/02/2017 06:25 PM Electronically Signed By:Erin Zelaya RN [facility] CM Progress Note CM Note CM Note Notes: Patient has been extubated, not following commands, fairly unresponsive, secretions. Plan at this time would be to return to [facility]. Patient has Medicaid and Psych issues and another placement might be difficult to find. Date Signed: 07/04/2017 04:29 PM Electronically Signed By:Trice Soto LCSW [facility] Progress Note CM Note CM Note Notes: Spoke with patient's Aunt Connie ([phone]) who will fax me the POA documents she has for the patient. Connie is going to check with the family to see if they would like a family meeting to go over patient's medical status or if she and the POA just want to meet with the doctor. Reyramses will call me back. POA documents will be filed in the front of the patient's chart as soon as I receive them. Connie states the family wants patient to go to a new placement instead of back to [facility]. Discussed the process of finding new palcement for patient with Connie and explained patient might need to discharge back to [facility] and have the social work specialist there help with new placement. Patient has both medical and psych issues that require more time to secure placement. Connie will call us back with facilities they are interested in and we will send out the initial referrals. If patient is ready for d/c before we get an accepting facility, she can return to [facility] and they can continue the search from there. Spoke with Preethi at [facility] to let her know they will need to support the family with the transition. CM will follow. Date Signed: 07/06/2017 01:55 PM Electronically Signed By:Racquel Peters LCSW [facility] Progress Note CM Note CM Note Notes: Met with many family members today to discuss redoing pt's MOST. Dr Moreno also present. Pt's brother Tristian and Aunt Carolyn are co- MDPOA. Dr Moreno indicated that pt was not decisional so family wanted to change her MOST form to no CPR, selective intervention with no intubation and no artificial nutrition. Dr Moreno explained each item on the MOST so family and MDPOAs could make an informed decision New form signed, placed in chart and original plus copies given to family. Date Signed: 07/08/2017 05:03 PM Electronically Signed By:Shauna Fraser LCSW [facility] CM Progress Note CM Note CM Note Notes: Wm Parra is working on getting patient transferred to [facility] but that won't happen until after she returns to [facility]. Wm Parra sent a referral today. Patient may discharge Monday. Date Signed: 07/11/2017 02:23 PM Electronically Signed By:Trice Soto LCSW Case Management Discharge Plan Note Case Management Discharge Discharge Order Complete? Answers: Yes Patient to Obtain Answers: Other Notes: Wm Parra Medications Transportation Arranged Answers: [facility] will Pick (Date 07/12/2017 11:30 AM & Time) Case Management Transport Answers: Yes Form Complete Faxed Final Orders Answers: Yes Discharge Comments Notes: D/w RN, final orders faxed. Preethi davison notified, RN to call report. Date Signed: 07/12/2017 10:11 AM Electronically Signed By:Keerthi Del Rosario RN Intervention Information
== END 2017-07-12 12:08 | DRG 377 ==
LOC: EDUNIT# → F2N 17:55 → F3E 07-11 15:23
PROVIDERS: ADMIT Family Medicine; ATTEND Family Medicine
PROC: 0D598ZZ Destruction of Duodenum, Via Natural or Artificial Opening Endoscopic (ICD-10-PCS; 2017-07-02)
PROC: 30243N1 Transfusion of Nonautologous Red Blood Cells into Central Vein, Percutaneous Approach (ICD-10-PCS; principal; 2017-07-02 16:50)
PROC: 02HV33Z Insertion of Infusion Device into Superior Vena Cava, Percutaneous Approach (ICD-10-PCS; principal; 2017-07-02 16:50)
PROC: 0BH13EZ Insertion of Endotracheal Airway into Trachea, Percutaneous Approach (ICD-10-PCS; principal; 2017-07-02 16:50)
PROC: 5A1935Z Respiratory Ventilation, Less than 24 Consecutive Hours (ICD-10-PCS; principal; 2017-07-02 16:50)
PROC: 0D9670Z Drainage of Stomach with Drainage Device, Via Natural or Artificial Opening (ICD-10-PCS; principal; 2017-07-02 16:50)
DX: K26.4 Chronic or unspecified duodenal ulcer with hemorrhage (principal); R57.8 Other shock; J69.0 Pneumonitis due to inhalation of food and vomit; G93.40 Encephalopathy, unspecified; E11.10 Type 2 diabetes mellitus with ketoacidosis without coma; N25.1 Nephrogenic diabetes insipidus; T43.595A Adverse effect of other antipsychotics and neuroleptics, initial encounter; D62 Acute posthemorrhagic anemia; N17.9 Acute kidney failure, unspecified; E87.2 Acidosis; F20.9 Schizophrenia, unspecified; F31.9 Bipolar disorder, unspecified; E66.9 Obesity, unspecified; J45.909 Unspecified asthma, uncomplicated; E78.5 Hyperlipidemia, unspecified; E03.9 Hypothyroidism, unspecified; E87.6 Hypokalemia; E86.0 Dehydration; R29.6 Repeated falls; Z79.4 Long term (current) use of insulin; Z66 Do not resuscitate
CPT/HCPCS: 82947-QW; 92526-GN; 92610-GN; 96365; 97162-GP; 97166-GO; 97530-GO; 97530-GP; 97535-GO; J0171; J0692; J1815; J1956; J2354; J2704; J3010; J3370; P9016; P9047

== ENCOUNTER 2017-07-19 01:57 | Inpatient (IN) | payer MEDICAID ==
[2017-07-19] MEDS ORDERED: NS 1,000 ML IV ONE ×2 (02:01→02:03)
[2017-07-19] MEDS ORDERED: PANTOPRAZOLE SODIUM 40 MG VIAL IVP ONE (02:03)
--- NOTE | 2017-07-19 02:06 | EDPHY ---
H & P HPI/ROS: HPI CHIEF COMPLAINT: Black tarry stool for [facility], high blood sugar, low blood pressure HISTORY OF PRESENT ILLNESS: This patient is a 51-year-old female who resides at [facility], she has a history of schizophrenia and recent hospitalization in July for GI bleed that was a duodenal ulcer, she was very sick and required ICU care, she had acute blood loss, additionally she has a history of hyponatremia, DKA, metabolic acidosis, encephalopathy, and schizophrenia, she presents to the emergency room at 2 o'clock in the morning from [facility] for black tarry stool. Unclear exactly when she started having black tarry stool but they report that they noticed it tonight and send her back to the emergency room. She denies any vomiting. She denies abdominal pain or chest pain. Denies shortness of breath. Clinically upon arrival to the emergency room in ER room 7 she appears dry on exam her blood pressure by EMS was 90 systolic. Past Medical History: Upper GI bleed, duodenal ulcer, acute blood loss anemia, schizophrenia, DKA, encephalopathy, metabolic acidosis Past Surgical History: Duodenal Ulcer Social History: Lives at [facility]. Family History: Noncontributory ROS REVIEW OF SYSTEMS: A comprehensive 10 point review of systems is otherwise negative aside from elements mentioned in the history of present illness. Exam Constitutional appears nontoxic but dry on exam triage nursing summary reviewed , vital signs reviewed, awake/alert. Hypotensive. Eyes normal conjunctivae and sclera, EOMI, PERRLA. HENT normal inspection, atraumatic, dry mucus membranes, no epistaxis, neck supple/ no meningismus, no raccoon eyes. Respiratory clear to auscultation bilaterally, normal breath sounds, no respiratory distress, no wheezing. Cardiovascular rate normal, regular rhythm, no murmur, no edema, distal pulses normal. Gastrointestinal apaucity of stool in the rectal vault. I do not appreciate a black tarry stool exam. But very little stool. soft, non-tender, no rebound, no guarding, normal bowel sounds, no distension, no pulsatile mass. Genitourinary no CVA tenderness. Musculoskeletal no midline vertebral tenderness, full range of motion, no calf swelling, no tenderness of extremities, no meningismus, good pulses, neurovascularly intact. Skin pink, warm, & dry, no rash, skin atraumatic. Neurologic awake, alert and oriented x 3, AAOx3, moves all 4 extremities equally, motor intact, sensory intact, CN II-XII intact, normal cerebellar, normal vision, normal speech. Psychiatric normal mood/affect. Heme/Lymph/Immune no lymphadenopathy. Differential Diagnosis: Includes but is not limited to in a particular order acute GI bleed, duodenal bleed, ulcer bleed, anemia, dehydration, electrolyte disturbance, DKA, infection, UTI Medical Decision Making: Plan for this patient 2 large-bore IVs, IV fluid bolus 1 L normal saline,, type and screen, Protonix bolus Protonix drip, IV blood draw, occult stool, and re-evaluate. Re-evaluation: 0240: This patient's H&H are reviewed she has hemoglobin of 6. This is an acute blood loss from her discharge hemoglobin of 9. The patient be transfused 2 U of blood. Her blood pressures on the soft side of 90 systolic. She is receiving a fluid bolus at this time. She has been typed and screened she does have 2 large-bore IVs. She received Protonix bolus Protonix drip. I will consult GI as well. I will consult the hospitalist for admission to the intensive care unit. Critical Care: Total Critical Care Time Spent Managing this Patient: 65 Minutes. This time was spent Exclusively with this patient. This Care was exclusive of procedures. The Organ System/life at risk was acute GI bleed, blood loss anemia , hypotension This Patient was in Critical Condition because acute GI bleed, hyotension 0241: Patient has not had any black tarry stool bowel moved here. I have consented and typed and screen her and cross-matched for 2 U of blood. Patient to get 2 UNITS OF blood in the ER. Then she will go to the ICU. Notify GI. 0255: I did consult Dr. Louis with GI. She is aware this patient, knee the ICU. She will consult on the patient. Patient to get 2 U of blood. Protonix drip control mix pulse. Admit to ICU. Source: Patient, EMS - Medical/Surgical History Hx Asthma: No Hx Chronic Respiratory Disease: No Hx Diabetes: Yes Hx Cardiac Disease: No Hx Renal Disease: No Hx Cirrhosis: No Hx Alcoholism: No Hx HIV/AIDS: No Hx Splenectomy or Spleen Trauma: No Other PMH: PMHx: schizoaffective disorder, bipolar disorder, cognitive communication deficit, DMII - Social History Smoking Status: Former smoker Constitutional: Initial Vital Signs Temperature (C) 36.6 C 07/19/17 02:00 Heart Rate 97 07/19/17 02:00 Respiratory Rate 18 07/19/17 02:00 Blood Pressure 83/56 L 07/19/17 02:00 O2 Sat (%) 98 07/19/17 02:00 O2 Delivery Mode Nasal Cannula O2 (L/minute) 2 Allergies/Adverse Reactions: Penicillins Allergy (Mild, Verified 06/09/17 19:33) Rash Home Medications: Medication Instructions Recorded Aspirin [Aspirin 81mg (*)] 81 mg PO DAILY 06/09/17 Atorvastatin Calcium [Lipitor 10 10 mg PO HS 06/09/17 mg (*)] Fluticasone/Salmeter 250/50Mcg 1 puffs IH BID 06/09/17 [Advair 250/50 (*)] Polyethylene Glycol 3350 [Miralax 17 gm PO DAILY 06/09/17 17 gm (*)] cloZAPine [Clozaril (*)] 75 mg PO BID 06/09/17 cloZAPine [Clozaril (*)] 100 mg PO BID 06/09/17 Acetaminophen [Tylenol 325mg (*)] 650 mg PO Q6HRS PRN 07/02/17 Levothyroxine [Synthroid 112 mcg 112 mcg PO DAILY06 07/02/17 (*)] Hydrochlorothiazide [HCTZ (*)] 25 mg PO BID tab 07/12/17 Insulin Glargine [Lantus 100 20 units SC DAILY ml 07/12/17 UNITS/ML (*)] Omeprazole [Prilosec 20 mg] 20 mg PO DAILY 07/19/17 Medical Decision Making - Diagnostics Imaging Results: Imaging Impressions Embolization, Transcatheter 07/19/17 00:00 Impression: 1. 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 2. Rupture of the pseudoaneurysm with diagnostic angiography alone, causing rapid bleeding into the duodenum. 3. One episode of hypotension during the procedure with active bleeding, while embolization was being done. Patient remained alert. Hypotension was treated by 1 unit transfusion as well as IV hydration and albumin. 4. Coil embolization of main trunk of the GDA, across the pseudoaneurysm. 5. No active extravasation at the end of embolization. No additional bleeding sites are identified. - Data Points Laboratory Results: Laboratory Results 07/19/17 02:11 07/19/17 02:11 07/19/17 02:11 Patient ABO/Rh O POSITIVE Antibody Screen NEGATIVE Crossmatch IS Only See Detail Medications Given: Atorvastatin Calcium (Lipitor) 10 mg PO HS SARAH Stop: 01/15/18 20:59 Last Admin: 07/19/17 19:20 Dose: Not Given Clozapine (Clozaril) 75 mg PO BID SARAH Stop: 01/15/18 20:59 Last Admin: 07/19/17 19:20 Dose: Not Given Clozapine (Clozaril) 100 mg PO BID SARAH Stop: 01/15/18 20:59 Last Admin: 07/19/17 19:20 Dose: Not Given Lactated Ringer's (Lr) 1,000 mls @ 125 mls/hr IV CONT SARAH Stop: 01/15/18 03:29 Last Admin: 07/19/17 21:35 Dose: 1,000 mls Pantoprazole Sodium 80 mg/ (Sodium Chloride) 100 mls @ 10 mls/hr IV Q10H SARAH Stop: 01/15/18 11:59 Last Admin: 07/19/17 19:14 Dose: 100 mls Insulin Glargine (Lantus Syringe) 12 units SC HS SARAH Stop: 01/15/18 20:59 Last Admin: 07/19/17 20:57 Dose: Not Given Insulin Human Lispro (Humalog Lispro) 0 unit SC TIDMEAL SARAH PRN Reason: Protocol Stop: 01/15/18 07:59 Last Admin: 07/19/17 18:15 Dose: Not Given Fluticasone/Salmeterol (Advair) 1 puffs IH BID SARAH Stop: 01/15/18 20:59 Last Admin: 07/19/17 21:40 Dose: 1 puffs Discontinued Medications Albumin Human (Flexbumin 25 % (Premix)) 100 ml IV ONCE ONE Stop: 07/19/17 16:16 Last Admin: 07/19/17 16:19 Dose: Not Given Fentanyl (Sublimaze) 0 mcg IVP ONCALL PRN PRN Reason: Per provider during procedure Stop: 07/19/17 13:43 Last Admin: 01/17/18 15:38 Dose: 50 mcg Sodium Chloride (Ns) 1,000 mls @ 0 mls/hr IV EDNOW ONE; Wide Open PRN Reason: Protocol Stop: 07/19/17 02:02 Last Admin: 07/19/17 02:18 Dose: 1,000 mls Sodium Chloride (Ns) 1,000 mls @ 0 mls/hr IV ONCE ONE PRN Reason: Wide Open Stop: 07/19/17 02:04 Last Admin: 07/19/17 02:18 Dose: Not Given Pantoprazole Sodium 80 mg/ (Sodium Chloride) 100 mls @ 10 mls/hr IV Q10H [facility] Stop: 01/15/18 02:14 Last Admin: 07/19/17 02:45 Dose: 100 mls Magnesium Sulfate/Dextrose (Magnesium Sulf 1 Gm (Premix)) 100 mls @ 100 mls/hr IV ONCE ONE Stop: 07/19/17 08:37 Last Admin: 07/19/17 08:00 Dose: 100 mls Potassium Chloride 10 meq/ (Sodium Chloride) 100 mls @ 100 mls/hr IV Q1H [facility] Stop: 07/19/17 11:59 Last Admin: 07/19/17 16:59 Dose: 100 mls Lactated Ringer's (Lr) 1,000 mls @ 0 mls/hr IV ONCE ONE PRN Reason: As Directed Stop: 07/19/17 09:31 Last Admin: 07/19/17 09:32 Dose: 1,000 mls Midazolam HCl (Versed) 0 mg IVP ONCALL PRN PRN Reason: Per provider during procedure Stop: 07/19/17 13:43 Last Admin: 07/19/17 13:36 Dose: 0.5 mg Pantoprazole Sodium (Protonix) 40 mg IVP EDNOW ONE Stop: 07/19/17 02:04 Last Admin: 07/19/17 02:17 Dose: 40 mg Departure - Departure Disposition: [facility] Acute Clinical Impression: Acute GI bleeding, Blood loss anemia Condition: Critical
[2017-07-19] MEDS ORDERED: PANTOPRAZOLE SODIUM 80 MG in NS 100 ML IV SCH (02:15)
[2017-07-19 02:24] LABS: PLATELET COUNT 359 10^3/uL (150-400)
[2017-07-19 02:30] LABS: INR 0.94 (0.83-1.16); PROTIME(PATIENT) 12.8 SEC (12.0-15.0)
[2017-07-19] MEDS ORDERED: ONDANSETRON 4 MG/2 ML VIAL IVP PRN (02:44)
[2017-07-19] MEDS ORDERED: LORazepam 2 MG/ML INJ IVP PRN (02:44)
[2017-07-19] MEDS ORDERED: D50W 25 GM/50 ML SYR IVP PRN (03:30)
[2017-07-19] MEDS ORDERED: PROTOCOL MAGNESIUM 1 DOSE IV PRN (03:32)
[2017-07-19] MEDS ORDERED: PROTOCOL POTASSIUM 1 DOSE MISC PRN (03:32)
[2017-07-19] MEDS ORDERED: IPRATROPIUM/ALBUTEROL 3 ML DEYVIAL IH PRN (03:33)
--- NOTE | 2017-07-19 04:59 | GHP ---
[f rep st] HISTORY AND PHYSICAL DATE OF ADMISSION: 07/19/2017 PCP: . Patient currently resident at [facility]. SOURCE: Able to provide majority of the history, currently appears reliable. EMR reviewed and case discussed with ED provider. CHIEF COMPLAINT: Black stools. HISTORY OF PRESENT ILLNESS: This is a very pleasant 51-year-old female with past medical history sig nificant for bipolar disorder, schizophrenia, recently had recent admission for DKA with bleeding duo denal ulcer, status post banding, complicated with hemorrhagic shock, [facility] stool at her facility. Per available accompanying paperwo rk from [facility] Nursing Staff, nursing records report that patient did have some decreased conscio usness over the last several hours prior to her arrival in the emergency department. Vital signs rec orded from that facility showed that blood pressures were stable 120/60. Heart rate, however, was el evated at 110, respiratory rate 16, temperature 98.3, and O2 sat 96% on room air. Given patient's de clining mentation, she was transferred to the emergency department for further evaluation. Upon arri rosy, patient was noted to have a systolic blood pressure in the 80s. She was awake and conversant. Upon my interview, patient denies that she has had any abdominal pain, cramping, diarrhea. She repor ts her bowel movement occurred some time in the latter part of the evening at her facility. She does state that she did have 1 episode of lightheadedness earlier today, was sitting down, but she did waters ve any shortness of breath or chest pain. The patient has not had any nausea, vomiting, or hematemes is. REVIEW OF SYSTEMS: Negative except as noted above. ALLERGIES: Penicillin. HOME MEDICATIONS: As per accompanying [facility] med list: Aspirin 81 mg p.o. daily, last dose was received Monday morning on the ; atorvastatin 10 mg p.o. q.h.s.; Lantus 20 units subcu in the mo rning; levothyroxine 112 mcg p.o. daily in the a.m.; MiraLAX 17 g p.o. daily; omeprazole 20 mg p.o. d aily; pioglitazone 45 mg p.o. daily; spironolactone 25 mg p.o. daily; Tradjenta 5 mg p.o. daily; erick min D3 50,000 units p.o. monthly; Advair Diskus 250/50 mcg inhaled b.i.d., clozapine 100 mg p.o. b.i. d.; HCTZ 25 mg p.o. b.i.d.; lithium 300 mg p.o. b.i.d.; Protonix 40 mg p.o. b.i.d.; albuterol nebuliz er q.4 p.r.n.; ProAir p.r.n.; Tylenol p.r.n. PAST MEDICAL HISTORY: Significant for bipolar disorder, schizophrenia. History of bleeding duodenal ulcer with GI bleeding and recent hemorrhagic shock status post intubation with hospitalization 06/04 to 07/12. Patient was admitted on 06/09 for pneumonia. Diabetes type 2, uncontrolled. Hy perlipidemia, hypertension, hypothyroidism, obesity with BMI of 31.3. PAST SURGICAL HISTORY: Significant for EGD with banding, tonsillectomy, adenoidectomy. FAMILY HISTORY: Father age 87 from lung cancer and history of peptic ulcer disease. Mother with history of kidney disease and hemorrhoids. Brother with history of CABG. SOCIAL HISTORY: Patient resides at [facility] currently since her discharge on 07/12/2017. She does not currently smoke, drink, or do drugs. She did quit tobacco since her admissions. CODE STATUS: Full. MOLST form is accompanying the patient with her chart. Mother is her POA. PHYSICAL EXAM: VITAL SIGNS: From [facility] as noted above in HPI. Vital signs on admission: B lood pressure was 83/56, heart rate was 97, respiratory rate 18, O2 sat 98 on 2 L by nasal cannula wi th a temperature of 36.6. Current systolic blood pressure is just over 100 at bedside, but most rece nt documented vital signs: Blood pressure 95/58, heart rate is 96, respiratory rate 20, O2 sat is 94 % on 2 L by nasal cannula. GENERAL: No acute distress. Pleasant, pale adult female who is lying qu ietly in bed, awake. HEAD: Normocephalic, atraumatic. EYES: Extraocular muscles are intact. Pupi ls slightly decreased, reactive to light bilaterally but symmetric. No scleral icterus or conjunctiv al injection. Conjunctiva are pale. ENT: Mucous membranes appear dry. Mucous membranes are pale a nd patient is edentulous. No oropharyngeal erythema or exudates. NECK: Supple. Trachea midline. Excessive soft tissue is present. CV: Slightly tachycardic in the 90s with regular rate and rhythm. Unable to appreciate any murmurs, rubs, or gallops. RESPIRATORY: Lungs are clear to auscultation bilaterally. No wheezes, rales, or rhonchi. Lung exam is slightly limited secondary to body habitus . ABDOMEN: Obese, soft, nontender to palpation. No rebound, guarding, or masses appreciated. No d istention. : No Iglesias in place. No suprapubic tenderness to palpation. EXTREMITIES: Patient wi thout any cyanosis, clubbing, or edema appreciated. Patient has 1+ pedal pulses bilaterally and symm etric. Cap refill is less than 2 seconds. NEURO: Grossly nonfocal. No facial drooping. Moves all extremities. Patient is awake, alert, and oriented x3. PSYCH: Patient's affect is appropriate. C urrent thought process, content, and questions are appropriate. LABORATORY STUDIES: WBC 6.43, H and H 6.5 and 20.3, platelet count is 359. No bands. H and H at [facility] on 07/12/2017, 9.1 and 27.9. PT is 12.8, INR 0.94, PTT is 21.7. VBG lactic acid 1.9. Sodium is 139, potassium 3.4, chloride 102, CO2 is 26, anion gap 11, BUN is 28, creatinine 0.9, GFR greater than 60, glucose 169, calcium 8.9, t otal bilirubin 0.2, ALT is 27, AST is 14, alk phos is 90, albumin 2.5, lipase 60. Stool occult blood is positive. [place] level is 0.2. ASSESSMENT AND PLAN: Pleasant 51-year-old female with past medical history significant for a bleedin g duodenal ulcer with recent hospitalization, hemorrhagic shock, who now presents with complaints of melena and hypotension. 1. Melena with suspected upper gastrointestinal bleed, concerning for recurrence of a bleeding ulcer ation versus gastritis or arteriovenous malformation. Patient has been started on Protonix bolus, Pr otonix drip. Gastroenterology has been consulted from the emergency department. Patient's vital sig ns have improved following some administration of IV fluids. She remains slightly tachycardic and wi ll be receiving transfusion. 2. Hypotension, responding appropriately to fluids with persistent tachycardia. Patient will be tra nsfused 2 units and will be transferred to the ICU given her recent history of acute gastrointestinal bleeding with hemorrhagic shock. 3. Acute blood loss anemia. Patient will be transfused with 2 units PRBCs and, again, a gastroenter ology consult is from the emergency department. 4. Hypoalbuminemia, likely declined in setting of acute gastrointestinal bleeding. Will plan to mon itor CMP in the morning. 5. Hypokalemia secondary to gastrointestinal losses. Will monitor and replace. 6. Diabetes type 2, uncontrolled without any evidence of diabetic ketoacidosis at this time. Stacy dailey will continue on her long-acting insulin and a sliding scale. 7. History of benign essential hypertension. Holding medications in setting of acute hypotension an d gastrointestinal bleeding. 8. Bipolar/schizophrenia. When diet is advanced will plan to resume patient's clozapine. Her lithi um level is decreased. Will plan to resume once patient's diet is advanced. At this time, she is no t agitated and appropriate. 9. History of reactive airway disease. Resume patient's Advair and DuoNeb p.r.n. 10. Hypothyroidism. Continue patient's levothyroxine when her diet is advanced. 11. Hyperlipidemia. Resume statin when diet advanced. 12. Fluid, electrolyte, nutrition. Patient will be placed on lactated Ringer's. She did receive IV fluid bolus in the emergency department and plan for 2 units of PRBCs to be transfused. Electrolyte s will continue to be monitored as above and replaced. Nutrition: Patient will be made n.p.o. pendi ng further evaluation by Gastroenterology with her gastrointestinal bleeding. 13. Prophylaxis. Holding anticoagulation in setting of acute gastrointestinal bleed. Sequential co mpression devices. 14. Code status is full. MOLST form on the chart. Mother is MD CASTELLANOS. 15. Disposition: Patient will be admitted to inpatient status in the unit for close observation and given her hypotension, gastrointestinal bleeding, acute blood loss anemia and her recent history of hemorrhagic shock, will need to be monitored very closely. /[id number]/MODL
[2017-07-19] MEDS ORDERED: MAGNESIUM SULF 1 GM/DEXTROSE 100 ML IV ONE (07:38)
[2017-07-19] MEDS ORDERED: POTASSIUM Cl (KCl) 100 ML IV SCH (07:45)
[2017-07-19] MEDS: POTASSIUM Cl (KCl) 10 MEQ in NS 100 ML IV SCH ×4 (08:05→16:59)
[2017-07-19] MEDS: PANTOPRAZOLE SODIUM 80 MG in NS 100 ML IV SCH ×2 (08:39→19:14)
[2017-07-19] MEDS ORDERED: FLUTICASONE/SALMETER 250/50MCG DISKUS IH SCH (09:00)
[2017-07-19] MEDS ORDERED: LR 1,000 ML IV ONE (09:30)
[2017-07-19] MEDS: INSULIN LISPRO 100 UNIT/ML SC SCH ×3 (09:59→18:15)
--- NOTE | 2017-07-19 10:51 | ASMTCMCOM ---
CM Note CM Note Notes: Patient admitted for bloody stools; has a hx of GI bleeds and was recently admitted for the same 07/02-07/12. She will go to endoscopy today for and EGD. Patient lives at [facility]. She has a history of BPD, schizophrenia, and DM, and is medicated for all. Her mom Elizabeth ([phone]) and her aunt Carolyn ([facility] [phone]) are involved and supportive. I anticipate discharge back to [facility] when patient is medically stable. Date Signed: 07/19/2017 10:51 AM Electronically Signed By:Perri Lechuga RN
--- NOTE | 2017-07-19 11:23 | PDANEPAE ---
ANE Past Medical History - Cardiovascular History Hx Hypertension: Yes - Pulmonary History Hx Asthma/Reactive Airway Disease: Yes Hx Oxygen in Use at Home: No Hx Sleep Apnea: No - Endocrine History Hx Diabetes: Yes - Neurological & Psychiatric Hx Hx Neurological and Psychiatric Disorders: Yes - Chronic Pain History Chronic Pain: No ANE Review of Systems Review of Systems: ANE Patient History - Allergies Allergies/Adverse Reactions: Penicillins Allergy (Mild, Verified 06/09/17 19:33) Rash - Home Medications Home Medications: Aspirin [Aspirin 81mg (*)] 81 mg PO DAILY 06/09/17 [Last Taken 07/18/17] Atorvastatin Calcium [Lipitor 10 mg (*)] 10 mg PO HS 06/09/17 [Last Taken ] Fluticasone/Salmeter 250/50Mcg [Advair 250/50 (*)] 1 puffs IH BID 06/09/17 [ Last Taken 07/18/17 20:00] Polyethylene Glycol 3350 [Miralax 17 gm (*)] 17 gm PO DAILY 06/09/17 [Last Taken 07/18/17] cloZAPine [Clozaril (*)] 75 mg PO BID 06/09/17 [Last Taken 07/18/17 20:00] cloZAPine [Clozaril (*)] 100 mg PO BID 06/09/17 [Last Taken 07/18/17 20:00] Acetaminophen [Tylenol 325mg (*)] 650 mg PO Q6HRS PRN 07/02/17 [Last Taken 07/16 12:14] Levothyroxine [Synthroid 112 mcg (*)] 112 mcg PO DAILY06 07/02/17 [Last Taken ] Omeprazole [Prilosec 20 mg] 20 mg PO DAILY 07/19/17 [Last Taken 07/18/17] - Smoking Hx Smoking Status: Former smoker ANE Labs/Vital Signs - Labs Result Diagrams: 07/19/17 09:40 07/19/17 06:15 - Vital Signs Blood Pressure: 114/58 Heart Rate: 89 Respiratory Rate: 21 O2 Sat (%): 97 Height: 170.18 cm Weight: 92.9 kg ANE Physical Exam - ASA Status ASA Status: III ANE Anesthesia Plan Total IV Anesthesia: Yes
--- NOTE | 2017-07-19 11:25 | GCON ---
[f rep st] CONSULTATION INTENSIVE CONSULTATION DATE OF CONSULTATION: 07/19/2017 REASON FOR ADMISSION: GI bleed. Melenic stools. HISTORY OF PRESENT ILLNESS: The patient is a very pleasant, 51-year-old, white female with extensive past medical history, including bipolar disorder with schizophrenia, history of duodenal ulcer in th e past, txw-vjvsoly-vgnrknuff diabetes, hyperlipidemia, hypertension, hypothyroidism, and obesity. S he presented to the emergency room from [facility] for melenic stools. Upon presentation, she was awake and alert. However, she was hypotensive at that time. She was subsequently admitted to the ntensive care unit for a suspected GI bleed. She was resuscitated with IV fluids, as well as transfu sed packed red cells. She is currently being transfused now. In discussion with the patient, she st ates that overall she feels somewhat better. She denies any abdominal pain. There is no shortness o f breath, cough, or productive sputum. She denies any pleuritic-type chest pain or anginal equivalen t. PAST MEDICAL HISTORY: As above. ALLERGIES: Penicillin. SOCIAL HISTORY: No history of tobacco use, no history of alcohol use, or drug use. She resides at [facility]. FAMILY HISTORY: Noncontributory. PAST SURGICAL HISTORY: An EGD with banding, tonsillectomy, adenoidectomy. MEDICATIONS: Include aspirin, atorvastatin, Lantus, levothyroxine, MiraLAX, omeprazole, pioglitazone , spironolactone, Tradjenta, vitamin D, Advair, clozapine, hydrochlorothiazide, lithium, Protonix, al buterol, ProAir, Tylenol. REVIEW OF SYSTEMS: A 10-point review of systems review of systems was performed and was negative, ex cept for what was reported in HPI. PHYSICAL EXAM: VITAL SIGNS: Blood pressure is 114/58, pulse is 89, respirations 21, temperature is 36.8, oxygen saturation 97% on room air. GENERAL: She is a morbidly obese, but very pleasant, 51-ye ar-old white female, who is resting comfortably in no acute distress. HEENT: Eyes are PERRLA, EOMI. Throat shows no erythema or tonsillar hypertrophy. NECK: Supple. There is no cervical adenopathy . HEART: Regular rate and rhythm without murmurs, rubs, gallops. LUNGS: Clear to auscultation wit hout wheeze or rhonchi. ABDOMEN: Soft, nontender. Bowel sounds are present. EXTREMITIES: No club tyson, cyanosis, or edema. LABORATORY: White count 6.4, hemoglobin of 6.4, hematocrit 19, platelet count is 359. Sodium 139, p otassium 3.0, chloride 102, CO2 is 26, BUN 28, creatinine 0.9, glucose is 169. Urinalysis is negativ e. Stool for occult blood is positive. [place] level is low. IMPRESSION: 1. Gastrointestinal bleed with melenic stools. 2. Acute blood-loss anemia. 3. Hypotension, improved. 4. Diabetes. 5. History of bipolar/schizophrenia. 6. Hypothyroidism. 7. Hyperlipidemia. RECOMMENDATIONS: 1. Agree with transfusion. 2. Follow H and H closely. 3. GI to see. Anticipate endoscopy later on today. 4. Adequate pain control. 5. Aggressive blood sugar control. 6. NPO for now. /[id number]/MODL
[2017-07-19] MEDS ORDERED: MIDAZOLAM 2 MG/2 ML VIAL ONE (11:37)
[2017-07-19] MEDS ORDERED: PROPOFOL/EMULSION 500 MG/50 ML BOTTLE IV ONE (11:37)
[2017-07-19] MEDS ORDERED: PHENYLEPHRINE HCL 100 MCG/ML SYR ONE (11:56)
[2017-07-19] MEDS ORDERED: NALOXONE HCL 0.4 MG/ML INJ IVP PRN ×2 (12:16→12:42)
[2017-07-19] MEDS ORDERED: fentaNYL 100 MCG/2 ML INJ IVP PRN ×2 (12:16→12:42)
[2017-07-19] MEDS ORDERED: LR 500 ML IV PRN (12:16)
--- NOTE | 2017-07-19 12:17 | POSTANESTH ---
Post Anesthetic Evaluation Cardiovascular Status: Similar to Pre-Op Cond Respiratory Status: Normal, Stable Level of Consciousness/Mental Status: Can Participate in Eval Pain Control: Adequate, Prn Tx Ordered Nausea/Vomiting Control: Adequate, Prn Tx Ordered Complications Possibly Related to Anesthesia: None Noted
--- NOTE | 2017-07-19 12:21 | GIREPORT ---
[facility] Surgical Services - Endoscopy Department Patient Name: Yeimi Gu Procedure Date: 07/19/2017 11:48 AM Patient Type: Inpatient Attending MD/ ER Physician: Savannah Louis MD Procedure: Upper GI endoscopy Indications: Acute post hemorrhagic anemia, Melena Providers: Savannah Louis MD Medicines: Monitored Anesthesia Care Complications: No immediate complications. Description of Procedure: After obtaining informed consent, the endoscope was passed under direct vision. Throughout the procedure, the patient's blood pressure, pulse, and oxygen saturations were monitored continuously. The Endoscope was intro duced through the mouth, and advanced to the second part of duodenum. The [facility] er GI endoscopy was accomplished without difficulty. The patient tolerated th e procedure well. Findings: The esophagus was normal. Hematin (altered blood/oqtxbt-wosycy-zmkl material) was found in the ga stric body. Hematin (altered blood/ezhzmc-fprmcm-erye material) was found in the duodenal bulb. One non-bleeding cratered duodenal ulcer with a visible vessel was foun d in the duodenal bulb. The lesion was 20 mm in largest dimension. Estimated Blood Loss: Estimated blood loss: none. Post Op Diagnosis: - Normal esophagus. - Hematin (altered blood/kcmvzi-hphsbk-qybv material) in the gastric thong dy. - Blood in the duodenal bulb. - One non-bleeding duodenal ulcer with a visible vessel. Very large vis ible vessel has failed prior attempt at endoscopic treatment. Large size precludes ability to safely treat endoscopically. Entire ulcer base was pulsating position not conducive to attempt clip placement and in my op inion too high risk for unroofing with electrocautery. No active bleeding now but high risk for rebleed. - No specimens collected. Recommendation: - Refer to an interventional radiologist today due to prior failed endoscopic treatment and too high risk lesion to treat endoscopically. - Return patient to ICU for ongoing care. - NPO. - Discussed with patient Aunt Carolyn who as Medical POA. Her number #[phone]. Attending Participation: I personally performed the entire procedure. Savannah Louis MD Savannah Louis MD 07/19/2017 12:21:09 PM This report has been signed electronicallySavannah Louis MD Number of Addenda: 0 Note Initiated On: 07/19/2017 11:48 AM [email or web address]
--- NOTE | 2017-07-19 12:31 | GCON ---
[f rep st] CONSULTATION DATE OF CONSULTATION: 07/19/2017 CHIEF COMPLAINT: Melena. HISTORY OF PRESENT ILLNESS: I was asked to see this patient in consultation by Dr. Paez for a chief complaint of melena. The patient is a 51-year-old who was admitted with massive GI bleed at the end of June of 2017. She underwent an upper endoscopy and was found to have a duodenal ulcer with p ulsating arterial bleed treated with BICAP. It was thought that, if this should bleed again, she wou ld be a candidate for IR as this likely is next to the gastroduodenal artery. However, after treatme nt, the patient had evidence of no further GI bleeding and was discharged back to group home. Ther e she was noted to have black stools yesterday, but how long this has been going on is unknown. The patient is a very poor historian and states that she has had no nausea, vomiting, or hematemesis. Sh e does note that she has been having black stools a few times a day, but is not sure for how long. S he does not take any NSAIDs. There has been no abdominal pain. ALLERGIES: Penicillin. MEDICINES: Prilosec, Lantus, hydrochlorothiazide, clonazepam, MiraLAX, Lipitor, baby aspirin daily, and Synthroid. PAST MEDICAL HISTORY: Bipolar disorder, schizophrenia, history of duodenal ulcer with hospitalizatio n from 07/02/2017 to 07/12/2017, type 2 diabetes, hyperlipidemia, hypertension, hypothyroidism, and o besity. SOCIAL HISTORY: The patient resides at [facility]. She denies alcohol use. FAMILY HISTORY: Father of lung cancer. REVIEW OF SYSTEM: I performed a complete review of systems, which is negative, except for the pertin ent positives and negatives noted above in the HPI. PHYSICAL EXAM: VITAL SIGNS: BP has been low at 80/50, pulse is 97, and she is afebrile. CONSTITUTI ONAL: She is alert and oriented. EYES: No scleral icterus. HENT: No oral lesions. CARDIOVASCULA R: Regular rate and rhythm. CHEST: Clear to auscultation. ABDOMEN: Obese, but soft and nontender . NEUROLOGIC: Nonfocal. SKIN: No rashes. LABORATORY DATA: BUN is 28.9. Hemoglobin on admission was 6.5 with a hematocrit of 20. At [facility], on 07/12/2017, her hemoglobin was 9.5 after 2 units of blood. Her hemoglobin has not improved and is now 6.4. ASSESSMENT: Upper gastrointestinal bleed in the setting of a recent severe gastrointestinal bleed 2 weeks ago from duodenal ulcer with visible vessel, probably near the gastroduodenal artery, treated b y BICAP. It was assessed at that time that this lesion would be high risk for rebleeding and repeat upper endoscopy or Interventional Radiology was recommended if she should have rebleeding. I would r ecommend repeat upper endoscopy to assess the lesion and to assess for active bleeding to see if it m ay be amenable for endoscopic therapy. I have discussed this with the patient and with her power of admitted attorneys, her aunt Carolyn, who gave permission to proceed with the procedure. We discussed the risks of sedation, risks of being unable to stop bleeding, and the risk of perforation and they have given permission to proceed. PLAN: Urgent upper endoscopy to assess if this may be amenable to endoscopic therapy. However, I am suspicious it will not be in which case I would recommend referral to Interventional Radiology. Con tinue with supportive care. Transfuse as needed. PPI IV. Monitor hemoglobin and hematocrit. /[id number]/MODL
[2017-07-19] MEDS ORDERED: FLUMAZENIL 0.5 MG/5 ML MDV IVP PRN (12:42)
[2017-07-19] MEDS ORDERED: MEPERIDINE 25 MG/ML SYR IVP PRN (12:42)
[2017-07-19] MEDS ORDERED: MIDAZOLAM 2 MG/2 ML VIAL IVP PRN (12:42)
[2017-07-19] MEDS ORDERED: NS 1,000 ML IV SCH (12:45)
--- NOTE | 2017-07-19 13:07 | ASMTCMCOM ---
CM Note CM Note Notes: Faxed a copy of patient's current MOST form (completed during her last inpatient admission, 07/11/17) to [employer] [facility] (fax [phone]) Date Signed: 07/19/2017 01:06 PM Electronically Signed By:Perri Lechuga RN
[2017-07-19] MEDS ORDERED: ALTEPLASE 2 MG VIAL IVP PRN (13:11)
[2017-07-19] MEDS ORDERED: ALBUMIN 25% 100 ML SOLN IV ONE ×2 (14:08→16:15)
[2017-07-19] MEDS ORDERED: LIDOCAINE 1% 300 MG/30 ML SDV ONE (14:23)
[2017-07-19] MEDS ORDERED: IOPAMIDOL (ISOVUE-300) 100 ML BTL ONE (14:23)
--- NOTE | 2017-07-19 14:37 | PDRADPN ---
Radiology Procedure Note Date of Procedure: 07/19/17 Radiologist: Karlie Estrada Anesthesia: IV Sedation (FENTANYL AND VERSED) Pre-op Diagnosis: GI bleeding Post-op Diagnosis: same Indication: DU ulcer. Failed endoscopy Procedure: visceral angiogram with embolization Finding(s): Large GDA pseudoaneurysm with large amount of active extravesation into duodenum. Coil embolized. No other source of bleeding seen. Inf/Abcess present in the surg proc area at time of surgery?: No Complications: None. 1U PRBC given as BP decreased to 60s during procedure.
--- NOTE | 2017-07-19 15:40 | PDMN ---
Medical Necessity Medical necessity: Pt meets IP criteria per MD; est los >2 mn for eval/tx of hypotension, GI bleeding, acute blood loss anemia & decreased consciousness; admit to ICU for further workup/close monitoring, Protonix drip, blood transfusion, IVFs & GI consult; hx recent bleeding duodenal ulcer w/GI bleeding & hemorrhagic shock s/p banding & intubation, DKA/uncontrolled diabetes, reactive airway disease, schizophrenia, bipolar, htn, pneumonia; per H&P & order 07/19/17
--- NOTE | 2017-07-19 16:17 | HOSPPROG ---
Hospitalist Progress Note Assessment/Plan: Assessment: 51-year-old female presents with acute blood loss anemia in the setting of acute upper gastrointestinal hemorrhage secondary to a bleeding duodenal gastric artery pseudoaneurysm Plan: 1. Acute blood loss anemia. Evidenced by hemoglobin level of 6.5 on presentation, remained around 6.5 status post 2 U of packed red blood cells secondary to ongoing bleeding from the pseudoaneurysm, received another 3 U PRBCs for a total of 5 U during the 1st 24 hrs -repeat hemoglobin level now -discussed with Dr. Baudilio Spicer, will continue acute 4 hr hemoglobin monitoring 2. Acute upper gastrointestinal hemorrhage. Hemodynamically unstable, systolic blood pressure symptomatic in the 80s on presentation with ongoing blood loss secondary to pseudoaneurysm at the duodenal ulcer -reviewed outside records including 07/02/[address] Lj Meek, reports the patient had a duodenal ulcer with close proximity to an artery, presumably the duodenal gastric artery, banded at that time, placed on PPI -discussed with Dr. Karlie Estrada, she has performed an embolization of the duodenal gastric artery where there was a pseudoaneurysm, likely source of bleed -continue on IV PPI -appreciate ongoing GI consult -monitor blood pressure closely, and if systolic blood pressure continues to run in the 80s, repeat lactic acid level, consider this hemorrhagic shock 3. Schizophrenia, chronic. Continue home medications 4. Hypertension. Chronic, hold home medications given hypotension 4. Hypo kalemia. Repletion protocol Diet. NPO, ice chips okay per Dr. bradley Prophylaxis. High risk patient, SCDs, pharm contraindicated given bleeding Code. Do not resuscitate per goals of care discussion during her most recent hospitalization Disposition. Anticipated discharge uncertain, remains critically ill. 40 min of critical care time spent with this patient, at bedside, coordinating with the above providers, specifically addressing her upper gastrointestinal hemorrhage and working to prevent hemorrhagic shock. Subjective: reports melanotic stool Objective: Vital Signs Temp Pulse Resp BP Pulse Ox 36.6 C 86 20 104/69 94 07/19/17 15:44 07/19/17 16:00 07/19/17 16:00 07/19/17 16:00 07/19/17 16:00 Laboratory Results 07/19/17 09:40 07/19/17 06:15 07/18/17 07/19/17 07/20/17 05:59 05:59 05:59 Intake Total 1820 1400 Output Total 500 500 Balance 1320 900 PT 12.8 SEC (12.0-15.0) 07/19/17 02:11 INR 0.94 (0.83-1.16) 07/19/17 02:11 - Physical Exam Constitutional: no apparent distress, not in pain, obese, No uncomfortable Cardiovascular: No systolic murmur, No irregularly irregular (occasional irregularity), No tachycardia, No edema Respiratory: no respiratory distress, no rales or rhonchi, clear to auscultation Gastrointestinal: normoactive bowel sounds, tenderness (mild in mid-epigastric area), No guarding, No distension Neurologic: AAOx3, sensation intact bilaterally, No weakness Psychiatric: interacting appropriately, not anxious, not encephalopathic, thought process linear ICD10 Worksheet Patient Problems: Problems Problem Status Onset Acute GI bleeding Acute Blood loss anemia Acute Altered mental status Acute Hyperglycemia Acute Pneumonia Acute Upper GI bleed Acute
[2017-07-19] MEDS: ATORVASTATIN CALCIUM 10 MG TAB PO SCH (19:20)
[2017-07-19] MEDS: cloZAPine 25 MG TAB PO SCH (19:20)
[2017-07-19] MEDS: cloZAPine 100 MG TAB PO SCH (19:20)
[2017-07-19] MEDS: INSULIN GLARGINE 100 UNITS/ML UNIT SC SCH (20:57)
[2017-07-19] MEDS: LR 1,000 ML IV SCH (21:35)
[2017-07-19] MEDS: FLUTICASONE/SALMETER 250/50MCG DISKUS IH SCH (21:40)
[2017-07-20] MEDS: LEVOTHYROXINE 112 MCG TAB PO SCH (04:28)
[2017-07-20 04:37] LABS: INR 1.2 (0.83-1.16); PROTIME(PATIENT) 15.4 SEC (12.0-15.0)
[2017-07-20 05:08] LABS: PLATELET COUNT 246 10^3/uL (150-400)
[2017-07-20] MEDS: PANTOPRAZOLE SODIUM 80 MG in NS 100 ML IV SCH (05:08)
[2017-07-20] MEDS ORDERED: LR 1,000 ML IV ONE (05:29)
[2017-07-20] MEDS ORDERED: POTASSIUM Cl (KCl) 50 ML IV ONE (05:36)
[2017-07-20] MEDS: INSULIN LISPRO 100 UNIT/ML SC SCH ×3 (08:25→18:12)
[2017-07-20] MEDS: FLUTICASONE/SALMETER 250/50MCG DISKUS IH SCH (08:50)
--- NOTE | 2017-07-20 09:20 | PDINTPN ---
Marketing Project Coordinator Progress Note Assessment/Plan: Assessment/plan: * GI bleed-status post upper endoscopy. Status post arteriography with embolization of large EGD a pseudoaneurysm * Anemia secondary to blood loss-H&H stable -continue to follow hemoglobin hematocrit closely -transfuse appropriately * Pain-tolerated * Morbid obesity * Diabetes-blood sugar well controlled -continue sliding scale * Hypothyroidism * Bipolar disorder with schizophrenia Subjective: Resting comfortably. No current complaints. Objective: Vital Signs Temp Pulse Resp BP Pulse Ox 36.7 C 87 16 85/48 L 93 07/20/17 04:00 07/20/17 08:00 07/20/17 08:00 07/20/17 08:00 07/20/17 08:00 Laboratory Results 07/20/17 08:15 07/20/17 04:05 07/19/17 07/20/17 07/21/17 05:59 05:59 05:59 Intake Total 1820 4242 Output Total 500 1000 Balance 1320 3242 PT 15.4 SEC (12.0-15.0) H 07/20/17 04:05 INR 1.20 (0.83-1.16) H 07/20/17 04:05 - Time Spent With Patient Time Spent With Patient: 35 min of time spent with patient, over half involved with coordination of care counseling Physical Exam - Physical Exam General Appearance: alert, no apparent distress EENT: PERRL/EOMI, normal ENT inspection Neck: non-tender, full range of motion, supple, normal inspection Respiratory: chest non-tender, lungs clear, normal breath sounds Cardiac/Chest: normal peripheral pulses, regular rate, rhythm Peripheral Pulses: 2+: carotid (R), carotid (L), femoral (R), femoral (L), dorsalis-pedis (R), dorsalis-pedis (L) Abdomen: normal bowel sounds, non-tender, soft Pelvic Exam: deferred Rectal: deferred Skin: normal color, warm/dry Neuro/Psych: no motor/sensory deficits, alert, normal mood/affect, oriented x 3 ICD10 Worksheet Patient Problems: Problems Problem Status Onset Acute GI bleeding Acute Blood loss anemia Acute Altered mental status Acute Hyperglycemia Acute Pneumonia Acute Upper GI bleed Acute
[2017-07-20] MEDS ORDERED: PNEUMOCOCCAL 0.5ML VACCINE VIAL IM ONE (10:21)
[2017-07-20] MEDS: cloZAPine 100 MG TAB PO SCH ×3 (10:31→22:01)
[2017-07-20] MEDS: cloZAPine 25 MG TAB PO SCH ×3 (10:31→22:01)
[2017-07-20] MEDS: LR 1,000 ML IV SCH (11:45)
--- NOTE | 2017-07-20 12:33 | SOAPPROG ---
[facility] Progress Note Assessment/Plan: Assessment: Recurrent UGIB from DU with large pseudoaneurysm s/p IR embolization. No rebleeding and overall now low risk post embilization. Plan: OK to advance diet Can change to PPI PO once taking PO well Check H. pylori No NSAIDS 07/20/17 12:31 Subjective: CC melena No e/o rebleeding since IR embolization yesterday Objective: Vital Signs Temp Pulse Resp BP Pulse Ox 36.7 C 82 20 90/51 L 93 07/20/17 04:00 07/20/17 11:00 07/20/17 11:00 07/20/17 11:00 07/20/17 11:00 Laboratory Results 07/20/17 08:15 07/20/17 04:05 07/19/17 07/20/17 07/21/17 05:59 05:59 05:59 Intake Total 1820 4242 Output Total 500 1000 Balance 1320 3242 PT 15.4 SEC (12.0-15.0) H 07/20/17 04:05 INR 1.20 (0.83-1.16) H 07/20/17 04:05 Physical Exam - Physical Exam General Appearance: no apparent distress Respiratory: lungs clear Cardiac/Chest: regular rate, rhythm Abdomen: non-tender, soft ICD10 Worksheet Patient Problems: Problems Problem Status Onset Acute GI bleeding Acute Blood loss anemia Acute Altered mental status Acute Hyperglycemia Acute Pneumonia Acute Upper GI bleed Acute
--- NOTE | 2017-07-20 16:54 | HOSPPROG ---
Hospitalist Progress Note Assessment/Plan: Assessment: 51-year-old female presents with acute blood loss anemia in the setting of acute upper gastrointestinal hemorrhage secondary to a bleeding duodenal gastric artery pseudoaneurysm Plan: 1. Acute blood loss anemia. Evidenced by hemoglobin level of 6.5 on presentation, total of 5 U during the 1st 24 hrs -repeat hemoglobin level 8 p.m. 2. Acute upper gastrointestinal hemorrhage. Hemodynamically unstable initially , systolic blood pressure now asymptomatic in the 80s and with normal lactic acid level -secondary to pseudoaneurysm at the duodenal ulcer -checking H. pylori -d/w Dr. Louis, she recommends advancing diet, adjusting to PO PPI, anticipate ongoing melena given size of bleed -continues to have melanotic stool, monitor Hgb for additional 24hrs 3. Schizophrenia, chronic. Continue home medications 4. Hypertension. Chronic, hold home medications given hypotension 4. Hypokalemia. Repletion protocol stopped 5. Hypernatremia. Acute, 2/2 volume repletion and PO free water deficit -stop LR/NS fluids -adjust to D5 1/2NS 100cc/hr overnight, repeat level in AM Diet. Adv as tolerated Prophylaxis. High risk patient, SCDs, pharm contraindicated given bleeding Code. Do not resuscitate per goals of care discussion during her most recent hospitalization Disposition. Anticipated discharge uncertain, monitor for additional 24hrs to ensure stabilization from a bleeding standpoint. High level of medical complexity, high risk patient for worsening morbidity 2/2 issues outlined above. Subjective: denies abd pain, ongoing melena Objective: Vital Signs Temp Pulse Resp BP Pulse Ox 36.7 C 82 20 90/51 L 93 07/20/17 04:00 07/20/17 11:00 07/20/17 11:00 07/20/17 11:00 07/20/17 11:00 Laboratory Results 07/20/17 08:15 07/20/17 04:05 07/19/17 07/20/17 07/21/17 05:59 05:59 05:59 Intake Total 1820 4242 Output Total 500 1000 500 Balance 1320 3242 -500 PT 15.4 SEC (12.0-15.0) H 07/20/17 04:05 INR 1.20 (0.83-1.16) H 07/20/17 04:05 - Physical Exam Constitutional: no apparent distress, not in pain, chronically ill appearing, obese, No uncomfortable Cardiovascular: regular rate and rhythym, no murmur, rub, or gallop, No edema Respiratory: no respiratory distress, no rales or rhonchi, clear to auscultation Gastrointestinal: normoactive bowel sounds, soft, non-tender abdomen, no palpable masses, No distension Neurologic: AAOx3 Psychiatric: not anxious, not encephalopathic, other (resting, fatigued), No agitated ICD10 Worksheet Patient Problems: Problems Problem Status Onset Pneumonia Acute Altered mental status Acute Upper GI bleed Acute Hyperglycemia Acute Acute GI bleeding Acute Blood loss anemia Acute
[2017-07-20] MEDS ORDERED: PANTOPRAZOLE SODIUM 40 MG TAB PO SCH (21:00)
[2017-07-20] MEDS: ATORVASTATIN CALCIUM 10 MG TAB PO SCH (22:01)
[2017-07-20] MEDS: INSULIN GLARGINE 100 UNITS/ML UNIT SC SCH (22:02)
[2017-07-20] MEDS: PANTOPRAZOLE SODIUM 40 MG VIAL IVP SCH (22:43)
[2017-07-20] MEDS: D5W 1/2 NS 1,000 ML IV SCH (23:26)
[2017-07-21] MEDS ORDERED: SODIUM CL NASAL 45 ML BTL EACHNARE PRN (03:55)
[2017-07-21] MEDS: LEVOTHYROXINE 112 MCG TAB PO SCH (04:31)
[2017-07-21 05:48] LABS: PLATELET COUNT 188 10^3/uL (150-400)
[2017-07-21] MEDS ORDERED: PNEUMOCOCCAL 0.5ML VACCINE VIAL IM ONE (08:00)
[2017-07-21] MEDS: PANTOPRAZOLE SODIUM 40 MG VIAL IVP SCH ×2 (08:40→20:56)
[2017-07-21] MEDS: INSULIN LISPRO 100 UNIT/ML SC SCH ×3 (08:41→18:33)
[2017-07-21] MEDS: cloZAPine 25 MG TAB PO SCH ×2 (08:41→20:38)
[2017-07-21] MEDS: cloZAPine 100 MG TAB PO SCH ×2 (08:41→20:38)
[2017-07-21] MEDS ORDERED: POTASSIUM Cl (KCl) 20 MEQ in D5W 1,000 ML IV SCH (09:15)
--- NOTE | 2017-07-21 09:15 | PDINTPN ---
Reservation Clerk Progress Note Assessment/Plan: Assessment/plan: * GI bleed-status post upper endoscopy. Status post arteriography with embolization of large EGD a pseudoaneurysm. Continues with melenic stools. * Anemia secondary to blood loss-hemoglobin hematocrit dropped yesterday. Patient transfuse last night -continue to follow hemoglobin hematocrit closely -transfuse appropriately * Pain-tolerated * Morbid obesity * Diabetes-blood sugar well controlled -continue sliding scale * Hypothyroidism * Bipolar disorder with schizophrenia * Nutrition-NPO for now Subjective: Sitting up in chair. Thirsty. Denies any pain. Had another melenic stool this morning. Objective: Vital Signs Temp Pulse Resp BP Pulse Ox 37 C 88 20 105/37 L 98 07/21/17 07:21 07/21/17 07:21 07/21/17 07:21 07/21/17 07:21 07/21/17 07:21 Laboratory Results 07/21/17 05:30 07/21/17 05:30 07/20/17 07/21/17 07/22/17 05:59 05:59 05:59 Intake Total 4242 2052 Output Total 1000 500 Balance 3242 1552 PT 15.4 SEC (12.0-15.0) H 07/20/17 04:05 INR 1.20 (0.83-1.16) H 07/20/17 04:05 - Time Spent With Patient Time Spent With Patient: 35 min of time spent with patient, over 1/2 involved coordination of care or counseling Physical Exam - Physical Exam General Appearance: alert, no apparent distress EENT: PERRL/EOMI, normal ENT inspection Neck: non-tender, full range of motion Respiratory: chest non-tender, lungs clear, normal breath sounds Cardiac/Chest: normal peripheral pulses, regular rate, rhythm Abdomen: non-tender, soft, No normal bowel sounds (Hyper active) Pelvic Exam: deferred Rectal: deferred Skin: normal color, warm/dry Extremities: normal range of motion, non-tender, normal inspection, normal capillary refill Neuro/Psych: alert ICD10 Worksheet Patient Problems: Problems Problem Status Onset Acute GI bleeding Acute Blood loss anemia Acute Altered mental status Acute Hyperglycemia Acute Pneumonia Acute Upper GI bleed Acute
[2017-07-21] MEDS: D5W 1/2 NS 1,000 ML IV SCH (10:06)
[2017-07-21] MEDS ORDERED: POTASSIUM Cl (KCl) 100 ML IV SCH (10:15)
[2017-07-21] MEDS: D5W 1,000 ML IV SCH (11:05)
[2017-07-21] MEDS: POTASSIUM Cl (KCl) 100 ML IV SCH (11:05)
--- NOTE | 2017-07-21 11:41 | SOAPPROG ---
[facility] Progress Note Assessment/Plan: Assessment: UGIB from DU with large pseudoaneurysm s/p IR embolization. Maroon stool today. Would certainly expect pt to pass old melena post bleed with IR. Unclear if maroon stool indicates rebleed from ulcer (should be low risk as artery was successfully embolized) vs fast transit from old blood or different bleeding site (colon vs ischemia from embolization --doubt as soft abd ). As hemodynamically stable at this time suspect not actively rebleeding Plan: NPO Serial H+H If drop in H+H or more bleeding check CT scan. If no e/o ischemia then colon with repeat EGD Surgical consult if e/o significant bleeding 07/21/17 11:36 Subjective: CC Maroon stools Pt had one maroon stool this AM. No N/V no abd pain Objective: Vital Signs Temp Pulse Resp BP Pulse Ox 37 C 88 20 105/37 L 98 07/21/17 07:21 07/21/17 07:21 07/21/17 07:21 07/21/17 07:21 07/21/17 07:21 Laboratory Results 07/21/17 05:30 07/21/17 05:30 07/20/17 07/21/17 07/22/17 05:59 05:59 05:59 Intake Total 4242 2052 Output Total 1000 500 150 Balance 3242 1552 -150 PT 15.4 SEC (12.0-15.0) H 07/20/17 04:05 INR 1.20 (0.83-1.16) H 07/20/17 04:05 Physical Exam - Physical Exam General Appearance: alert Respiratory: lungs clear Cardiac/Chest: regular rate, rhythm Abdomen: non-tender, soft ICD10 Worksheet Patient Problems: Problems Problem Status Onset Acute GI bleeding Acute Blood loss anemia Acute Altered mental status Acute Hyperglycemia Acute Pneumonia Acute Upper GI bleed Acute
--- NOTE | 2017-07-21 17:30 | HOSPPROG ---
Hospitalist Progress Note Assessment/Plan: Assessment: 51-year-old female presents with acute blood loss anemia in the setting of acute upper gastrointestinal hemorrhage secondary to a bleeding duodenal gastric artery pseudoaneurysm c/b ongoing melena Plan: 1. Acute blood loss anemia. 2/2 bleeding pseudoaneurysm, total of 6 U -repeat hemoglobin level now, monitor daily 2. Acute upper gastrointestinal hemorrhage. 2/2 pseudoaneurysm at the duodenal ulcer, s/p coiling by IR -w/ ongoing melena, it is unclear whether the bleed continues, or whether this is passage of old blood (BUN is normalized today) -the port-wine colored BM today may be suggestive of ischemia, and, if continues , Dr. Estrada recommends CT angio and gen surg consult for possible bowel excision/ arterial ligation -cont IV PPI -cont de-escalated diet to sips/chips 3. Schizophrenia, chronic. Continue home medications 4. Hypertension. Chronic, hold home medications given hypotension 4. Hypokalemia. Repletion protocol stopped, 40 IV given today 5. Hypernatremia. Acute, 2/2 volume repletion and PO free water deficit -stopped LR/NS fluids, adjusted to D5W Diet. Sips/Chips Prophylaxis. High risk patient, SCDs, pharm contraindicated given bleeding Code. Do not resuscitate per goals of care discussion during her most recent hospitalization Disposition. Anticipated discharge uncertain, monitor for additional 24hrs to ensure stabilization from a bleeding standpoint. High level of medical complexity, high risk patient for worsening morbidity 2/2 issues outlined above. Subjective: port wine colored BM today, patient is thirsty Objective: Vital Signs Temp Pulse Resp BP Pulse Ox 36.7 C 91 22 H 98/49 L 100 07/21/17 16:00 07/21/17 16:00 07/21/17 16:00 07/21/17 16:00 07/21/17 16:00 Laboratory Results 07/21/17 05:30 07/21/17 05:30 07/20/17 07/21/17 07/22/17 05:59 05:59 05:59 Intake Total 4242 2052 Output Total 1000 500 150 Balance 3242 1552 -150 PT 15.4 SEC (12.0-15.0) H 07/20/17 04:05 INR 1.20 (0.83-1.16) H 07/20/17 04:05 - Physical Exam Constitutional: no apparent distress, not in pain, chronically ill appearing, obese, No uncomfortable Cardiovascular: regular rate and rhythym, no murmur, rub, or gallop, No edema Respiratory: no respiratory distress, no rales or rhonchi, clear to auscultation Gastrointestinal: normoactive bowel sounds, soft, non-tender abdomen, no palpable masses, No distension Skin: No rash Neurologic: AAOx3, sensation intact bilaterally, No weakness Psychiatric: not anxious, thought process linear, flat affect, No agitated ICD10 Worksheet Patient Problems: Problems Problem Status Onset Pneumonia Acute Altered mental status Acute Upper GI bleed Acute Hyperglycemia Acute Acute GI bleeding Acute Blood loss anemia Acute
[2017-07-21] MEDS: ATORVASTATIN CALCIUM 10 MG TAB PO SCH (20:38)
[2017-07-21] MEDS: INSULIN GLARGINE 100 UNITS/ML UNIT SC SCH (20:56)
[2017-07-22] MEDS: D5W 1,000 ML IV SCH (03:28)
[2017-07-22] MEDS: LEVOTHYROXINE 112 MCG TAB PO SCH (04:16)
[2017-07-22 05:17] LABS: PLATELET COUNT 203 10^3/uL (150-400)
[2017-07-22] MEDS: INSULIN LISPRO 100 UNIT/ML SC SCH ×3 (11:36→17:19)
[2017-07-22] MEDS: cloZAPine 100 MG TAB PO SCH ×2 (11:44→21:04)
[2017-07-22] MEDS: cloZAPine 25 MG TAB PO SCH ×2 (11:44→21:04)
[2017-07-22] MEDS: PANTOPRAZOLE SODIUM 40 MG VIAL IVP SCH (11:44)
--- NOTE | 2017-07-22 12:37 | SOAPPROG ---
JENNI Progress Note Assessment/Plan: Assessment:Plan: 1) UGI bleed form large DU s/p IR tx on 07/19/17 - did bleed during IR tx and that is the melena she is now passing. her Hb is stable post one unit on 07/19 and her BUN has decreased since 07/19 c/w no ongoing bleeding. Can change PPI to PO BID for 4 weeks, then daily for 4 more week,then PCP to decide about long term acute care registered nurse GI prophylaxis. Advance diet. Follow Hb/HCT and BUN/Cr I think her risk of rebleed is very low and I will sign off for now Please recall if needed. thank you 07/22/17 12:34 Subjective: cc- UGI bleed from large DU s/p IR tx pt is hungry and wants to eat no n/v no abdo pain Objective: Vital Signs Temp Pulse Resp BP Pulse Ox 36.5 C 101 H 20 104/60 97 07/22/17 11:26 07/22/17 11:26 07/22/17 11:26 07/22/17 11:26 07/22/17 11:26 Laboratory Results 07/22/17 04:40 07/22/17 04:40 07/21/17 07/22/17 07/23/17 05:59 05:59 05:59 Intake Total 2052 941 854 Output Total 500 150 350 Balance 1552 791 504 PT 15.4 SEC (12.0-15.0) H 07/20/17 04:05 INR 1.20 (0.83-1.16) H 07/20/17 04:05 A+Ox3 CTA S1S2 +BS, soft nt Laboratory Tests 07/19/17 07/20/17 07/20/17 02:11 04:05 17:00 Hgb 7.6 L BUN 28 H 28 H Creatinine 0.9 0.8 07/21/17 07/21/17 07/21/17 00:10 05:30 05:30 Hgb 9.1 L 8.8 L BUN 16 Creatinine 0.7 07/21/17 07/22/17 07/22/17 17:55 04:40 04:40 Hgb 9.4 L 9.3 L BUN 12 Creatinine 0.7 ICD10 Worksheet Patient Problems: Problems Problem Status Onset Acute GI bleeding Acute Blood loss anemia Acute Altered mental status Acute Hyperglycemia Acute Pneumonia Acute Upper GI bleed Acute
--- NOTE | 2017-07-22 12:57 | PDINTPN ---
Code Enforcement Supervisor Progress Note Assessment/Plan: Assessment/plan: * GI bleed-status post upper endoscopy. Status post arteriography with embolization of large EGD a pseudoaneurysm. Continues with melenic stools. * Anemia secondary to blood loss-hemoglobin hematocrit dropped yesterday. -continue to follow hemoglobin hematocrit closely -transfuse appropriately * Pain-tolerated * Morbid obesity * Diabetes-blood sugar well controlled -continue sliding scale * Hypothyroidism * Bipolar disorder with schizophrenia * Nutrition-NPO for now * Disposition-will transfer to medical surgical floor Subjective: Sitting up. Comfortable. Objective: Vital Signs Temp Pulse Resp BP Pulse Ox 36.5 C 101 H 20 104/60 97 07/22/17 11:26 07/22/17 11:26 07/22/17 11:26 07/22/17 11:26 07/22/17 11:26 Laboratory Results 07/22/17 04:40 07/22/17 04:40 07/21/17 07/22/17 07/23/17 05:59 05:59 05:59 Intake Total 2052 941 854 Output Total 500 150 350 Balance 1552 791 504 PT 15.4 SEC (12.0-15.0) H 07/20/17 04:05 INR 1.20 (0.83-1.16) H 07/20/17 04:05 - Time Spent With Patient Time Spent With Patient: 35 min of time spent with patient, over 1/2 involved with coordination of care or counseling Physical Exam - Physical Exam General Appearance: alert, no apparent distress, obese EENT: PERRL/EOMI, normal ENT inspection Neck: non-tender, full range of motion, supple, normal inspection Respiratory: chest non-tender, lungs clear, normal breath sounds Cardiac/Chest: normal peripheral pulses, regular rate, rhythm Abdomen: normal bowel sounds, non-tender, soft Pelvic Exam: deferred Rectal: deferred Skin: normal color, warm/dry Extremities: non-tender Neuro/Psych: alert ICD10 Worksheet Patient Problems: Problems Problem Status Onset Acute GI bleeding Acute Blood loss anemia Acute Altered mental status Acute Hyperglycemia Acute Pneumonia Acute Upper GI bleed Acute
--- NOTE | 2017-07-22 15:30 | ASMTCMCOM ---
CM Note CM Note Notes: Pt transferring to floor. Surgery has been consulted. Anticipate d/c back to [facility] when medically cleared. Date Signed: 07/22/2017 03:29 PM Electronically Signed By:JOHNY Shepherd
[2017-07-22 17:13] VITALS: RESP 16
--- NOTE | 2017-07-22 18:15 | HOSPPROG ---
Hospitalist Progress Note Assessment/Plan: #. ABLA - stable. Recheck in AM. #. UGI Bleed - secondary to duodenal ulcer/pseudoaneurysm s/p coiling. Will defer to GI on diet advancement recommendations. #. Hypokalemia - replace. #. Hypernatremia - fluids adjusted to D5W. Reassess in AM. #. Schizophrenia - continue psychiatric medications. Appropriate on exam today. #. HTN - stable. No changes today. #. DVT prophylaxis - no heparin or lovenox in light of bleeding. #. Dispo - DNAR. Subjective: F/U GI bleed. No acute complaints. Resting comforably in bed. Objective: Vital Signs Temp Pulse Resp BP Pulse Ox 36.7 C 75 16 102/72 97 07/22/17 16:00 07/22/17 16:00 07/22/17 16:00 07/22/17 16:00 07/22/17 16:00 Laboratory Results 07/22/17 04:40 07/22/17 04:40 07/21/17 07/22/17 07/23/17 05:59 05:59 05:59 Intake Total 2052 941 3174 Output Total 500 150 700 Balance 0453 985 6154 PT 15.4 SEC (12.0-15.0) H 07/20/17 04:05 INR 1.20 (0.83-1.16) H 07/20/17 04:05 - Physical Exam Constitutional: no apparent distress Cardiovascular: regular rate and rhythym, no murmur, rub, or gallop Respiratory: no respiratory distress, no rales or rhonchi Gastrointestinal: normoactive bowel sounds, soft, non-tender abdomen, no palpable masses ICD10 Worksheet Patient Problems: Problems Problem Status Onset Acute GI bleeding Acute Blood loss anemia Acute Altered mental status Acute Hyperglycemia Acute Pneumonia Acute Upper GI bleed Acute
[2017-07-22] MEDS: ACETAMINOPHEN 325 MG TAB PO PRN (18:31)
[2017-07-22] MEDS: PANTOPRAZOLE SODIUM 40 MG TAB PO SCH (20:53)
[2017-07-22] MEDS: INSULIN GLARGINE 100 UNITS/ML UNIT SC SCH (20:53)
[2017-07-22] MEDS: ATORVASTATIN CALCIUM 10 MG TAB PO SCH (20:53)
[2017-07-23] MEDS: LEVOTHYROXINE 112 MCG TAB PO SCH (05:00)
[2017-07-23 05:21] LABS: PLATELET COUNT 175 10^3/uL (150-400)
[2017-07-23] MEDS: ACETAMINOPHEN 325 MG TAB PO PRN (08:09)
[2017-07-23] MEDS: cloZAPine 25 MG TAB PO SCH (08:10)
[2017-07-23] MEDS: PANTOPRAZOLE SODIUM 40 MG TAB PO SCH (08:15)
[2017-07-23] MEDS: cloZAPine 100 MG TAB PO SCH (08:15)
[2017-07-23] MEDS: INSULIN LISPRO 100 UNIT/ML SC SCH ×2 (08:16→14:22)
--- NOTE | 2017-07-23 14:38 | PDIAF ---
- Diagnosis Code Status: Do Not Resuscitate - Medication Management Discharge Medications: Medications to Continue on Transfer Atorvastatin Calcium [Lipitor 10 mg (*)] 10 mg PO HS 06/09/17 [Last Taken ] Fluticasone/Salmeter 250/50Mcg [Advair 250/50 (*)] 1 puffs IH BID 06/09/17 [ Last Taken 07/18/17 20:00] Polyethylene Glycol 3350 [Miralax 17 gm (*)] 17 gm PO DAILY 06/09/17 [Last Taken 07/18/17] cloZAPine [Clozaril (*)] 75 mg PO BID 06/09/17 [Last Taken 07/18/17 20:00] cloZAPine [Clozaril (*)] 100 mg PO BID 06/09/17 [Last Taken 07/18/17 20:00] Acetaminophen [Tylenol 325mg (*)] 650 mg PO Q6HRS PRN 07/02/17 [Last Taken 07/16 12:14] Levothyroxine [Synthroid 112 mcg (*)] 112 mcg PO DAILY06 07/02/17 [Last Taken ] Hydrochlorothiazide [HCTZ (*)] 25 mg PO BID tab 07/12/17 [Last Taken 07/18/17 20:00] Insulin Glargine [Lantus 100 UNITS/ML (*)] 20 units SC DAILY ml 07/12/17 [Last Taken 07/18/17] Pantoprazole Sodium [Protonix 40mg (*)] 40 mg PO BID #60 tab 07/23/17 [Last Taken Unknown] Discharge Medications: Refer to the Discharge Home Medication list for PRN reason. PICC Care - Routine: N/A - Orders Services needed: Physical Therapy, Occupational Therapy Diet Recommendation: no restrictions on diet Diet Texture: Regular Texture Diet Iglesias: Not applicable - Labs/Radiology BMP Date: 07/27/17 CBC w/diff Date: 07/27/17 - Follow Up Care Current Providers and Referrals: SERGE ROME [Other] - As per Instructions
[2017-07-23 15:12] VITALS: BP 100/56; PULSE 82; TEMP 97.4; O2SAT 99
--- NOTE | 2017-07-23 15:14 | GDS ---
[f rep st] DISCHARGE SUMMARY PRIMARY CARE PROVIDER: Dr. Chun Hayes. IN-HOSPITAL CONSULTANTS: Dr. Estrada, Interventional Radiology. Dr. Spicer of pulmonary and critical care medicine. Dr. Funes, gastroenterology. DISCHARGE DIAGNOSES: 1. Large duodenal ulcer. 2. Upper gastrointestinal bleeding. HISTORY OF PRESENT ILLNESS: The patient is a 51-year-old female with a past medical history of a rec ent admission to [facility] for duodenal ulcer. This was treated endoscopically, but she came back with recurrent bleeding and hemorrhagic shock. Interventional Radiology was consulted and she subsequently underwent embolization of the artery at the bleed. She received a total of 6 u nits of packed RBCs. Fortunately, her hemoglobin has remained stable after the past 3 days. Gastroenterology has consulted on her case, and the sense at this point time that the risk of rebleed ing is very low. It is recommended, however, to continue with Protonix twice a day for 4 weeks, and then daily for 4 additional weeks, and then the decision can be made at that in point time, as far as long-term GI prophylaxis. Otherwise, no major complications throughout her hospital course here. HOSPITAL COURSE BY PROBLEM: 1. Acute blood loss anemia. Her presenting hemoglobin was 6.6, and in total she received 6 units of packed red blood cells. Her hemoglobin has been at 9 for the past 3 days, and there was concern sushila t she did have some ongoing melena, but it is felt that this is still the bowel clearing from her pro cedure. 2. Upper gastrointestinal bleed secondary to duodenal ulcer, status post coil embolization. She is to continue proton pump inhibitor twice a day for 4 weeks and then this can be reduced to once a day for the subsequent month. 3. Schizophrenia. No changes in medications during this hospitalization. 4. Hypertension. No changes at this point in time. 5. Diabetes mellitus type 2. No changes were made to her insulin dosing. 6. Deep venous thrombosis prophylaxis. Compression devices were used during this hospitalization. No Lovenox in light of bleeding. 7. Disposition. She appears stable to transfer back to [facility]. EXAMINATION ON DISCHARGE: VITAL SIGNS: Temperature 36.6, blood pressure is 91/50, heart rate 83, re spirations 16, saturating 95% on room air. GENERAL: Patient resting comfortably in bed, awake, aler t, arousable, no acute distress. HEART: Regular. No murmurs. LUNGS: Clear with normal respirator y effort. ABDOMEN: Soft, nontender, nondistended. : No Iglesias catheter in place. EXTREMITIES: No significant pitting edema. NOTABLE STUDIES: Labs on day of discharge, white blood cell count 5.6, hemoglobin 9.0, platelets 175 . Sodium 143, potassium 3.7, chloride 111, bicarb 23, BUN 11, creatinine 0.7, glucose 89. DISCHARGE MEDICATIONS: 1. Pantoprazole 40 mg twice a day, to be taken for 1 month, and then once a day for an additional 4 weeks. 2. MiraLAX 17 g daily. 3. Atorvastatin 10 mg nightly. 4. Clozaril 175 mg twice a day. 5. Advair 250/50 one puff twice a day. 6. Levothyroxine 112 mcg daily. 7. Hydrochlorothiazide 25 mg twice a day. 8. Lantus insulin 20 units daily. DISCHARGE INSTRUCTIONS: I recommend a followup visit with Dr. Chun steinberg in 1-2 weeks' time. I will write an order for a repeat CBC in 1 week's time. Thirty five minutes of time dedicated to discharge efforts. Copy requested to: Chun Hayes /[id number]/MODL
--- NOTE | 2017-07-23 16:32 | ASDISCHSUM ---
Discharge Information Plan Status:SNF Medically Cleared to Leave:07/22/2017 Discharge Date:07/23/2017 04:23 PM CM D/C Disposition:Shelter Facility ADT D/C Disposition:Home, Routine, Self-Care Projected Discharge Date:07/23/2017 05:00 PM Transportation at D/C:ALS/BLS Discharge Delay Reason: Follow-Up Date:07/23/2017 05:00 PM Discharge Slot: Final Diagnosis:AGIB Placement Information Patient Contact Information Contact Name:LENNY Relationship: Address: Work Phone: City: [facility] Phone: State/Zip Code: Email: Financial Information Financial Class: Primary Plan Desc:[employer] Primary Plan Number:[id number] Secondary Plan Desc: Secondary Plan Number: Assessment Information [facility] CM Progress Note CM Note CM Note Notes: Patient admitted for bloody stools; has a hx of GI bleeds and was recently admitted for the same 07/02-07/12. She will go to endoscopy today for and EGD. Patient lives at [facility]. She has a history of BPD, schizophrenia, and DM, and is medicated for all. Her mom Elizabeth ([phone]) and her aunt Carolyn ([facility] [phone]) are involved and supportive. I anticipate discharge back to [facility] when patient is medically stable. Date Signed: 07/19/2017 10:51 AM Electronically Signed By:Perri Lechuga RN [facility] CM Progress Note CM Note CM Note Notes: Faxed a copy of patient's current MOST form (completed during her last inpatient admission, 07/11/17) to [facility] yoandy Saenz (fax [phone]) Date Signed: 07/19/2017 01:06 PM Electronically Signed By:Perri Lechuga RN [facility] CM Progress Note CM Note CM Note Notes: Pt transferring to floor. Surgery has been consulted. Anticipate d/c back to [facility] when medically cleared. Date Signed: 07/22/2017 03:29 PM Electronically Signed By:JOHNY Shepherd Case Management Discharge Plan Note Case Management Discharge Discharge Order Complete? Answers: Yes Patient to Obtain Answers: Other Notes: [facility] Medications Transportation Arranged Answers: [facility] will Pick (Date 07/23/2017 04:30 PM & Time) Case Management Transport Answers: Yes Form Complete Faxed Final Orders Answers: Yes Notes: By fax [facility] Agency/Facility Transfer Answers: Yes Report Printed & Faxed to Receiving Agency Discharge Comments Notes: Patient has been discharged back to [facility]. Vaishnavi contacted Conf # [phone]. Info Faxed to [facility]. Date Signed: 07/23/2017 04:31 PM Electronically Signed By:Trice Soto LCSW Intervention Information
== END 2017-07-23 16:23 | disposition home or self-care (01) | DRG 357 ==
LOC: EDUNIT# → F2N 03:35 → F3N 07-22 18:13
PROVIDERS: ADMIT Family Medicine; ATTEND Family Medicine
PROC: 30233N1 Transfusion of Nonautologous Red Blood Cells into Peripheral Vein, Percutaneous Approach (ICD-10-PCS; 2017-07-19)
PROC: 0DJ08ZZ Inspection of Upper Intestinal Tract, Via Natural or Artificial Opening Endoscopic (ICD-10-PCS; 2017-07-19)
PROC: 02HV33Z Insertion of Infusion Device into Superior Vena Cava, Percutaneous Approach (ICD-10-PCS; 2017-07-19)
PROC: 04L33DZ Occlusion of Hepatic Artery with Intraluminal Device, Percutaneous Approach (ICD-10-PCS; principal; 2017-07-19 11:30)
DX: K26.4 Chronic or unspecified duodenal ulcer with hemorrhage (principal); D62 Acute posthemorrhagic anemia; I10 Essential (primary) hypertension; F20.9 Schizophrenia, unspecified; E11.9 Type 2 diabetes mellitus without complications; E03.9 Hypothyroidism, unspecified; E78.5 Hyperlipidemia, unspecified; E87.6 Hypokalemia; E66.01 Morbid (severe) obesity due to excess calories; Z88.0 Allergy status to penicillin; Z66 Do not resuscitate; Z79.4 Long term (current) use of insulin; Z23 Encounter for immunization; Z87.891 Personal history of nicotine dependence
CPT/HCPCS: 87338-90; 96374; 97116-GP; 97161-GP; 97165-GO; 97530-GO; 97530-GP; 97535-GO; C1751; C1760; C1769; C1894; G0009; J0171; J1644; J1815; J2250; J2370; J2704; J3010; J3475; P9016; P9047; Q9967

== ENCOUNTER 2017-08-29 00:28 | Emergency (ER) | payer MEDICAID ==
[2017-08-29] MEDS ORDERED: NS 1,000 ML IV ONE (00:35)
--- NOTE | 2017-08-29 00:38 | CPEKG ---
Heart Rate: 52 RR Interval: 1154 QRSD Interval: 192 QT Interval: 512 QTC Interval: 477 QRS [place]: -75 T Wave [place]: 80 EKG Severity - ABNORMAL ECG - EKG Impression: ATRIAL FIBRILLATION EKG Impression: RBBB AND LAFB EKG Impression: PROBABLE LVH WITH SECONDARY REPOL ABNRM Electronically Signed By: Vazquez Sauceda 29-Aug-2017 06:39:55
--- NOTE | 2017-08-29 00:42 | EDPHY ---
H & P HPI/ROS: HPI CHIEF COMPLAINT: Witnessed cardiac arrest HISTORY OF PRESENT ILLNESS: Patient is a 51-year-old female she presents emergency room by ambulance emergently for cardiac arrest. Apparently this was witnessed at her group home by staff there. She immediately got bystander CPR. EMS arrived to find her in asystole. They did close to 20 min of CPR with 6 mg of IV epinephrine given, additionally 1 amp of bicarb given. They were able to get return of spontaneous circulation. She was intubated in the field with a 6.5 endotracheal tube. Upon arrival to the emergency room she has a pulse heart rate is in the 50s. According to EMS there is no preceding symptoms. This was an abrupt onset of unresponsiveness. According to EMS she is a full code. A right tib-fib IO was placed by EMS. Past Medical History: Upper GI bleed, duodenal ulcer, schizophrenia, hypertension, diabetes, encephalopathy, pneumonia, acute kidney injury Past Surgical History: No recent Social History: Lives at [facility]. Family History: Noncontributory ROS REVIEW OF SYSTEMS: Review of systems and history is limited due to patient's presentation Exam Constitutional unresponsive Eyes 3 mm equal. HENT no trauma visualized. Respiratory clear breath sounds bilaterally with bagging Cardiovascular heart rate in the 50s. Gastrointestinal somewhat distended abdomen Musculoskeletal does not move any of her extremities Skin cool to touch Neurologic unresponsive Differential Diagnosis: Includes but is not limited to in a particular order cardiac arrest, cardiopulmonary arrest, respiratory failure, sepsis, pneumonia, acute OK, aortic dissection, ruptured AAA, intracranial bleed Medical Decision Making: Plan for this patient will proceed with care post ROSC. Will establish an IV, blood draw, EKG, check troponin, ABG, chest x-ray for endotracheal tube placement, will proceed with workup for cardiopulmonary arrest now status post ROSC. Will clarify her advance directives Re-evaluation: 1248AM: Chest x-ray one view for endotracheal tube placement the endotracheal tube is slightly deep. I have asked them to pulled back 2 cm. EKG interpretation by me on record in [employer] system. Impression time of EKG 0034, rate of 52 appears to be a ventricular rhythm, significant ST depression in V1 V2 V3. Additionally 1 in aVL. This looks like a post cardiac arrest cardiac rhythm. 1249: We were able to locate a MOST form dated 07/08/[address] Moreno. This shows this patient is a DNR. No chest compressions. 1253: Able to confirm that this patient does have a MOST form that is no CPR, selected treatment only no artificial nutrition this was signed on 07/08/[address] Moreno. The patient did receive CPR prior to arrival as well as intubated prior to arrival. At this time I will honor the most form and not pursue any further chest compressions or aggressive measures like central line. I do feel that it is reasonable to give her IV fluids make her comfortable and allow her to go to the ICU for further care. 1254: At this time she is in critical condition with a heart rate in the 50s pulse ox 91% 0107AM: Patient became severely bradycardic down into the 20s and then went into in asystole rhythm. I did perform a bedside ultrasound there was no cardiac activity seen on the ultrasound. Given that this patient has a advance directive/MOST Form for no CPR or aggressive measures unfortunately the patient passed peacefully at 1:06 a.m.. Critical Care: Total Critical Care Time Spent Managing this Patient: 30Minutes. This time was spent Exclusively with this patient. This Care was exclusive of procedures. The Organ System/life at risk was cardiac This Patient was in Critical Condition because cardiopulmonary arrest Source: EMS Exam Limitations: Clinical condition - Medical/Surgical History Hx Asthma: No Hx Chronic Respiratory Disease: No Hx Diabetes: Yes Hx Cardiac Disease: No Hx Renal Disease: No Hx Cirrhosis: No Hx Alcoholism: No Hx HIV/AIDS: No Hx Splenectomy or Spleen Trauma: No Other PMH: PMHx: schizoaffective disorder, bipolar disorder, cognitive communication deficit, DMII - Social History Smoking Status: Former smoker Constitutional: Initial Vital Signs Temperature (C) 38.8 C H 08/29/17 00:44 Heart Rate 51 L 08/29/17 00:44 Respiratory Rate 16 08/29/17 00:44 O2 Sat (%) 96 08/29/17 00:44 O2 Delivery Mode Ventilator Allergies/Adverse Reactions: Penicillins Allergy (Mild, Verified 06/09/17 19:33) Rash Home Medications: Medication Instructions Recorded Atorvastatin Calcium [Lipitor 10 10 mg PO HS 06/09/17 mg (*)] Fluticasone/Salmeter 250/50Mcg 1 puffs IH BID 06/09/17 [Advair 250/50 (*)] Polyethylene Glycol 3350 [Miralax 17 gm PO DAILY 06/09/17 17 gm (*)] cloZAPine [Clozaril (*)] 75 mg PO BID 06/09/17 cloZAPine [Clozaril (*)] 100 mg PO BID 06/09/17 Acetaminophen [Tylenol 325mg (*)] 650 mg PO Q6HRS PRN 07/02/17 Levothyroxine [Synthroid 112 mcg 112 mcg PO DAILY06 07/02/17 (*)] Hydrochlorothiazide [HCTZ (*)] 25 mg PO BID tab 07/12/17 Insulin Glargine [Lantus 100 20 units SC DAILY ml 07/12/17 UNITS/ML (*)] Pantoprazole Sodium [Protonix 40mg 40 mg PO BID #60 tab 07/23/17 (*)] Medical Decision Making - Data Points Laboratory Results: 08/29/17 08/29/17 00:42 00:42 VBG Lactic Acid 15.0 mmol/L H mmol/L (0.7-2.1) Sodium Pending Potassium Pending Chloride Pending Carbon Dioxide Pending Anion Gap Pending BUN Pending Creatinine Pending Estimated GFR Pending Glucose Pending Calcium Pending Magnesium Pending Total Bilirubin Pending Conjugated Bilirubin Pending Unconjugated Bilirubin Pending AST Pending ALT Pending Alkaline Phosphatase Pending Creatine Kinase Pending CK-MB (CK-2) Fraction Pending Troponin I Pending NT-Pro-B Natriuret Pep Pending Total Protein Pending Albumin Pending Medications Given: Discontinued Medications Sodium Chloride (Ns) 1,000 mls @ 0 mls/hr IV EDNOW ONE; Wide Open PRN Reason: Protocol Stop: 08/29/17 00:36 Last Admin: 08/29/17 00:52 Dose: 1,000 mls Departure - Departure Disposition: Clinical Impression: Cardiopulmonary arrest Condition: Critical Referrals: Patient,NotPresent [Primary Care Provider] - As per Instructions
[2017-08-29 00:51] VITALS: RESP 16; TEMP 101.8
[2017-08-29 01:01] VITALS: PULSE 45; O2SAT 92
[2017-08-29 01:15] LABS: CREATINE KINASE 284 IU/L (0-156)
== END 2017-08-29 04:00 | disposition expired ==
LOC: EDUNIT#
DX: I46.9 Cardiac arrest, cause unspecified (principal); E11.9 Type 2 diabetes mellitus without complications; E86.9 Volume depletion, unspecified; Z79.4 Long term (current) use of insulin; Z87.891 Personal history of nicotine dependence